=== PATIENT | female | born 1955 | race African-American/Black ===

== ENCOUNTER 2020-06-16 08:48 | Outpatient (CLI) | payer MEDICARE, MEDICAID, SELFPAY ==
[2020-06-16 09:20] LABS: Basophils Percent Auto 0.4 % (0.2-1.2); Eosinophils Absolute Auto 0.2 K/mm3 (0-0.3); Eosinophils Percent Auto 2.7 % (0-4.4); Hematocrit 40.7 % (37.0-47.0); Immature Granulocyte Absolute 0.01 K/mm3 (0.00-0.031); Immature Granulocyte Percent A 0.1 % (0-0.5); Lymphocytes Absolute Auto 2.02 K/mm3 (0.9-3.2); Lymphocytes Percent Auto 23.7 % (18.3-44.2); Mean Corpuscular HGB Conc 34.4 g/dl (32-36); Mean Corpuscular Hemoglobin 31.4 pg (26-34); Mean Corpuscular Volume 91.3 fl (80-100); Mean Platelet Volume 9.5 fl (7.4-10.4); Monocytes Absolute Auto 0.5 K/mm3 (0.1-0.6); Monocytes Percent Auto 6.2 % (2.6-8.5); Neutrophils Absolute Auto 5.7 K/mm3 (1.3-6.7); Neutrophils Percent Auto 66.9 % (45.5-73.1); Platelet Count Result 182 k/mm3 (150-375); Red Blood Count 4.46 M/mm3 (4.2-5.4); Red Cell Distribution Width 12.6 % (11.5-14.5); White Blood Count 8.5 K/mm3 (4.5-10.0)
[2020-06-16 09:32] LABS: Alanine Aminotransferase 20 U/L (4-35); Albumin Level 4.5 g/dL (3.5-5.1); Alkaline Phosphatase 57 U/L (38-126); Anion Gap 5 mmol/L (8-16); Aspartate Amino Transferase 24 U/L (14-36); Bilirubin,Total 0.4 mg/dL (0.2-1.3); Blood Urea Nitrogen 12 mg/dL (7-17); Calcium 9.5 mg/dL (8.4-10.2); Carbon Dioxide 31 mmol/L (22-30); Chloride 106 mmol/L (98-107); Cholesterol 181 mg/dL (0-200); Estimated Glomerular Filt Rate > 60; Glucose 123 mg/dL (65-105); HDL Direct 59 mg/dL; Magnesium 1.8 mg/dL (1.6-2.3); Phosphorus 4.2 mg/dL (2.5-4.5); Sodium 142 mmol/L (137-145); Triglycerides 143 mg/dL (<150); Uric Acid 6.2 mg/dL (2.5-7.5)
[2020-06-16 09:42] LABS: LDL Cholesterol Direct 85 mg/dL
[2020-06-16 10:33] LABS: Hemoglobin A1C 5.8 % (<5.7)
[2020-06-16 10:46] LABS: Vitamin D 25 Hydroxy 46.9 ng/mL
[2020-06-16 13:33] LABS: Iron 91 ug/dL (37-170); Percent Iron Saturation 28 % (20-50)
== END 2020-06-16 08:49 | disposition home or self-care (01) ==
PROVIDERS: PCP Emergency Medicine; Visit Provider Emergency Medicine
DX: D86.0 Sarcoidosis of lung (principal); E55.9 Vitamin D deficiency, unspecified; E78.5 Hyperlipidemia, unspecified; E83.10 Disorder of iron metabolism, unspecified; G47.00 Insomnia, unspecified; K21.9 Gastro-esophageal reflux disease without esophagitis; M10.9 Gout, unspecified; R73.9 Hyperglycemia, unspecified
CPT/HCPCS: 36415; 80061; 80069; 80076; 82306; 82728; 83036; 83540; 83550; 83735; 84550; 85025

== ENCOUNTER 2020-07-04 08:08 | Outpatient (CLI) | payer MEDICARE, MEDICAID, SELFPAY ==
--- NOTE | ~2020-07-04 | MM_ITS ---
EXAMINATION: MM screening [facility] BI w elena HISTORY: Screening mammogram TECHNIQUE: Craniocaudal and mediolateral oblique 3-D tomosynthesis images were obtained and synthetic 2-D images were generated. CAD analysis was submitted and interpreted. COMPARISON: No prior mammogram is available for comparison at this institution. BREAST PARENCHYMAL COMPOSITION: The breasts are heterogeneously dense, which may obscure small masses . FINDINGS: RIGHT BREAST: There is no evidence of suspicious mass, calcification, or architectural distortion to suggest malignancy. LEFT BREAST: An asymmetry is present in the middle third of the inner breast best appreciated 5.5 cm from the nipple on the craniocaudal view. IMPRESSION: 1. Left breast asymmetry. 2. Additional mammographic views and possible breast ultrasound are recommended. BI-RADS Category 0: Incomplete: Needs additional imaging evaluation. Reviewed, dictated and finalized at location A. GAGE LOAN COORDINATOR IMPRESSION: 1. Left breast asymmetry. 2. Additional mammographic views and possible breast ultrasound are recommended . BI-RADS Category 0: Incomplete: Needs additional imaging evaluation.
== END 2020-07-04 08:09 | disposition home or self-care (01) ==
PROVIDERS: PCP Emergency Medicine; Visit Provider Emergency Medicine
DX: Z12.31 Encounter for screening mammogram for malignant neoplasm of breast (principal); R92.8 Other abnormal and inconclusive findings on diagnostic imaging of breast
CPT/HCPCS: 77063; 77067

== ENCOUNTER 2020-08-10 13:55 | Outpatient (CLI) | payer MEDICARE, MEDICAID, SELFPAY ==
--- NOTE | ~2020-08-10 | MM_ITS ---
EXAMINATION: MM diagnostic mammo unilat LT HISTORY: Left breast asymmetry on screening mammogram TECHNIQUE: Additional 3-D tomosynthesis images of the left breast were performed and synthetic 2-D im ages were generated. CAD analysis was submitted and interpreted. High resolution limited left breast ultrasound was performed. COMPARISON: 07/04/2020 BREAST PARENCHYMAL COMPOSITION: The breasts are heterogeneously dense, which may obscure small masses . FINDINGS: MAMMOGRAPHIC FINDINGS: The left breast asymmetry described on recent screening mammogram disperses with spot compression. No suspicious mass, calcification, or architectural distortion are identified. ULTRASOUND: There is no evidence of focal abnormal solid or cystic mass in the vicinity of the mammographic findi ng in question. IMPRESSION: 1. No mammographic or sonographic evidence of malignancy. 2. Recommend routine screening mammography in one year. BI-RADS Category 1: Negative Reviewed, dictated and finalized at location A.
== END 2020-08-10 13:56 | disposition home or self-care (01) ==
LOC: ANHIMG 13:58
PROVIDERS: PCP Emergency Medicine; Visit Provider Emergency Medicine
DX: R92.8 Other abnormal and inconclusive findings on diagnostic imaging of breast (principal)
CPT/HCPCS: 76642; 77065

== ENCOUNTER 2020-11-19 01:25 | Emergency (ER) | payer MEDICARE, MEDICAID, SELFPAY ==
--- NOTE | ~2020-11-19 | XR_ITS ---
XR knee RT 3V DATE: 11/19/2020 02:11 INDICATION: Fall 5 hours ago. Right knee pain. TECHNIQUE: 3 views COMPARISON: None FINDINGS: Mild osteoarthritic spurring at the medial compartment. Minimal periarticular spurring of t he patella. No fracture or dislocation. There may be minimal suprapatellar joint effusion. No periosteal reaction or bone destruction. No radiopaque intra-articular loose body or chondrocalcinosis. IMPRESSION: Mild osteoarthritis Minimal suprapatellar knee joint effusion is suggested; no fracture or dislocation Reviewed, dictated and finalized at location A. IMPRESSION: Mild osteoarthritis Minimal suprapatellar knee joint effusion is suggested; no fracture or dislocat ion
--- NOTE | ~2020-11-19 | XR_ITS ---
XR ankle LT min 3V DATE: 11/19/2020 02:11 INDICATION: Fall. Left ankle injury, pain TECHNIQUE: 4 views COMPARISON: None FINDINGS: There is slight plantar calcaneal enthesopathy. No fracture or dislocation of the ankle or disruption of the ankle mortise. No periosteal reaction or bone destruction. IMPRESSION: No fracture or dislocation of the left ankle Reviewed, dictated and finalized at location A.
[2020-11-19 01:25] VITALS: BP 168/66; PULSE 67; RESP 16; TEMP 36.4; O2SAT 100
--- NOTE | 2020-11-19 02:30 | ED.GENADULT ---
HPI - General Adult General Chief complaint: Extremity Injury, Lower Stated complaint: GLF-RT KNEE PAIN; ALSO LEFT ANKLE INJURY Time Seen by Provider: 11/19/20 01:36 History of Present Illness HPI narrative: Patient 65-year-old female presents emerged part with chief complaint of left ankle and right knee pain. Patient reports that she has had problems with her left ankle for some time after a fall and reports that she lost her footing and her leg gave out and she fell landing on her right knee. Patient states that she iced it elevated reported that initially was swollen but is gone down somewhat. The patient states that her knee still hurts and she was concerned that she may have a fracture to it. Patient also reports that her left ankle has been hurting and she was concerned that there may be a fracture in her ankle. Related Data Home Medications Medication Instructions Recorded Confirmed albuterol sulfate INHALATION 11/19/20 fluoride (sodium) [PreviDent 5000 11/19/20 Booster Plus] fluticasone propionate INTRANASAL 11/19/20 fluticasone propionate [Flovent INHALATION 11/19/20 HFA] quetiapine 11/19/20 zolpidem 11/19/20 Allergies Allergy/AdvReac Type Severity Reaction Status Date / Time No Known Allergies Allergy Verified 11/19/20 01:30 Review of Systems Review of Systems: Narrative: A 10 system review of systems was completed on the patient and is negative except for what is stated in the HPI. Nursing and ancillary documentation was reviewed. [facility] Social History Social History Gender identity (if verbalized by the patient): Female Sexual Orientation (if Verbalized by the Patient): Straight or Heterosexual Exam Narrative: Exam Narrative: GENERAL: Well-appearing, well-nourished, and in no acute distress. HEAD: Normocephalic, atraumatic. EYES: PERRLA and EOMI. ENT: Nares clear, no rhinorrhea or epistaxis. Mucous membranes moist. NECK: Supple. CHEST: Clear to auscultation. No respiratory distress. HEART: Regular rate and rhythm. No murmur heard. Normal peripheral pulses. ABDOMEN: Soft, nontender, nondistended, normal active bowel sounds. EXTREMITIES: Normal range of motion. No edema. Tenderness to palpation in the left ankle and right knee SKIN: Warm, dry, no rash. NEURO: No focal deficits. Alert and oriented x3. PSYCH: Normal mood and affect. Course Course Emergency Course: Ankle x-ray shows no evidence of fracture Knee x-ray shows no evidence of fracture Vital Signs Vital signs: Vital Signs Temperature 36.4 C L 11/19/20 01:25 Pulse Rate 67 11/19/20 01:25 Respiratory Rate 16 11/19/20 01:25 Blood Pressure 168/66 H 11/19/20 01:25 Pulse Oximetry 100 11/19/20 01:25 Temperature 36.4 C L 11/19/20 01:25 Pulse Rate 67 11/19/20 01:25 Respiratory Rate 16 11/19/20 01:25 Blood Pressure 168/66 H 11/19/20 01:25 Pulse Oximetry 100 11/19/20 01:25 Medical Decision Making Vital Signs Vital Signs: Vital Signs Temperature 36.4 C L 11/19/20 01:25 Pulse Rate 67 11/19/20 01:25 Respiratory Rate 16 11/19/20 01:25 Blood Pressure 168/66 H 11/19/20 01:25 Pulse Oximetry 100 11/19/20 01:25 Temperature 36.4 C L 11/19/20 01:25 Pulse Rate 67 11/19/20 01:25 Respiratory Rate 16 11/19/20 01:25 Blood Pressure 168/66 H 11/19/20 01:25 Pulse Oximetry 100 11/19/20 01:25 Discharge Plan Discharge Clinical Impression: Left ankle sprain Qualifiers: Encounter type: initial encounter Involved ligament of ankle: unspecified ligament Qualified Code(s): S93.402A - Sprain of unspecified ligament of left ankle, initial encounter Contusion of right knee Qualifiers: Encounter type: initial encounter Qualified Code(s): S80.01XA - Contusion of right knee, initial encounter Patient Disposition: Home, Self-Care Condition: Stable Instructions: Antibiotic Form, Knee Pain (ED), Contu
[2020-11-19 02:48] VITALS: BP 189/96; PULSE 60; RESP 16; O2SAT 100
[2020-11-19 02:53] VITALS: BP 189/96; PULSE 60; RESP 16; O2SAT 100
== END 2020-11-19 02:55 | disposition home or self-care (01) ==
PROVIDERS: Emergency Provider Emergency Medicine; PCP Emergency Medicine
DX: S93.402A Sprain of unspecified ligament of left ankle, initial encounter (principal); S80.01XA Contusion of right knee, initial encounter; I10 Essential (primary) hypertension; W19.XXXA Unspecified fall, initial encounter
CPT/HCPCS: 73562; 73610; 99284

== ENCOUNTER 2020-11-21 20:26 | Emergency (ER) | payer MEDICARE, MEDICAID, SELFPAY ==
[2020-11-21 20:27] VITALS: BP 131/101; PULSE 94; RESP 18; TEMP 36.3; O2SAT 97
--- NOTE | 2020-11-21 20:47 | ED.GENADULT ---
HPI - General Adult General Chief complaint: Eye Problems Stated complaint: conjunctivitis Time Seen by Provider: 11/21/20 20:33 Source: patient Mode of arrival: ambulatory Limitations: no limitations History of Present Illness HPI narrative: Patient presents for evaluation of left eye concerns. She indicates she went to sleep around 1500 this afternoon. She woke up just prior to coming to the emergency department tonight and had experienced photophobia, tearing, and sensation of a scratch on the eye. She wears glasses but does not use contact lenses. Last eye exam was last year. She denies any diplopia, floaters, black spots. She states that her current vision is blurry in the affected eye. She states she had not slept for almost 30 hours before going to bed at 1500. She was so tired that she pulled the covers over her head to ensure she would fall asleep. Related Data Home Medications Medication Instructions Recorded Confirmed albuterol sulfate INHALATION 11/19/20 fluoride (sodium) [PreviDent 5000 11/19/20 Booster Plus] fluticasone propionate INTRANASAL 11/19/20 fluticasone propionate [Flovent INHALATION 11/19/20 HFA] quetiapine 11/19/20 zolpidem 11/19/20 Allergies Allergy/AdvReac Type Severity Reaction Status Date / Time No Known Allergies Allergy Verified 11/21/20 20:32 Review of Systems Review of Systems: Narrative: CONSTITUTIONAL: Denies fever, chills, or sweats. EYES: Reports sensation of a scratch under her left eye. Reports blurred vision and tearing. Denies diplopia, floaters, black spots ENT: Denies rhinorrhea, congestion, sore throat, or otalgia. CARDIOVASCULAR: Denies chest pain, palpitations, or edema. RESPIRATORY: Denies cough or dyspnea. GASTROINTESTINAL: Denies abdominal pain, nausea, vomiting, or diarrhea. GENITOURINARY: Denies dysuria or hematuria. SKIN: Denies rash or itching. MUSCULOSKELETAL: Denies back pain, joint pain, or myalgia. NEUROLOGIC: Denies headache, numbness, dizziness, or weakness. PSYCHIATRIC: Denies anxiety or depression. [facility] Past Medical History Medical History (Updated 11/21/20 @ 22:12 by German Cano, [facility], ) Hypertension Surgical History Surgical History No pertinent past surgical history Family History Family History Mother No pertinent past medical history Social History Social History (Updated 11/21/20 @ 22:09 by German Cano, [facility], ) Alcohol intake: never Substance use: never Gender identity (if verbalized by the patient): Female Spiritual care concerns: No Exam Narrative: Exam Narrative: GENERAL: Well-appearing, well-nourished, and in no acute distress. HEAD: Normocephalic, atraumatic. EYES: PERRLA and EOMI. there is tearing noted to the left eye. Pressures with Margarito-Pen 10, 12, 17, 17, 18, 20. There are areas of dye uptake overlying the conjunctive of the left eye at approximately 4 and 7:00. Evaluated with slit lamp and no evidence of retained foreign body in the left eye ENT: Nares clear, no rhinorrhea or epistaxis. Mucous membranes moist. Oropharynx without tonsillar hypertrophy exudate or other lesions. Bilateral TMs pearly daniels nonbulging NECK: Supple. No adenopathy or masses. No carotid bruits or JVD CHEST: Clear to auscultation. No respiratory distress. No wheezes rales or rhonchi HEART: Regular rate and rhythm. No murmur heard. Normal peripheral pulses. ABDOMEN: Soft, nontender, nondistended, normal active bowel sounds. EXTREMITIES: Normal range of motion. No edema. SKIN: Warm, dry, no rash. NEURO: No focal deficits. Alert and oriented x3. PSYCH: Normal mood and affect. Course Course Emergency Course: This is a 65-year-old female who presented with complaints of left eye irritation. It appears that she had rubbed her eye when going to sleep this afternoon. On physical e
--- NOTE | 2020-11-21 22:30 | PC.NURSE ---
patient refused visual acuity test stating her eyes burned too bad
== END 2020-11-21 22:32 | disposition home or self-care (01) ==
PROVIDERS: Emergency Provider Nurse Practitioner; PCP Emergency Medicine
DX: S05.02XA Injury of conjunctiva and corneal abrasion without foreign body, left eye, initial encounter (principal); I10 Essential (primary) hypertension; X58.XXXA Exposure to other specified factors, initial encounter
CPT/HCPCS: 99283; A9270

== ENCOUNTER 2021-05-03 10:13 | Emergency (ER) | payer MEDICARE, MEDICAID, SELFPAY ==
[2021-05-03 10:35] VITALS: BP 135/73; PULSE 65; RESP 18; TEMP 35.9; O2SAT 100
--- NOTE | 2021-05-03 14:45 | ED.GENADULT ---
HPI - General Adult General Chief complaint: Eye Problems Stated complaint: right eye pain Time Seen by Provider: 05/03/21 11:21 Source: patient Mode of arrival: ambulatory Limitations: no limitations History of Present Illness HPI narrative: Patient is a 5-year-old female with chief complaint of right eye redness, swelling, irritation, and light yellow drainage that began this morning. Patient denies any injury to her eye. Patient denies wearing any contact lenses or having any ocular trauma. Patient reports having cataract surgery on 03-18-21 but denies any other ocular history. Patient reports that she has been to go to her [employer] office to see if she can be seen after leaving the emergency department but it did not occur for her to go over to the office prior to coming to the emergency department. Patient reports that she does have some light sensitivity but denies any headaches, nausea, vomiting, flashes or floaters or blindness. Related Data Home Medications Medication Instructions Recorded Confirmed fluticasone propionate INTRANASAL 11/19/20 fluticasone propionate [Flovent INHALATION 11/19/20 HFA] quetiapine 11/19/20 zolpidem 11/19/20 hydroxychloroquine 200 mg tablet 200 mg PO DAILY 02/18/21 loperamide 2 mg capsule 2 mg PO Q4H PRN 02/18/21 omeprazole 20 mg capsule,delayed 20 mg PO BID 02/18/21 release Allergies Allergy/AdvReac Type Severity Reaction Status Date / Time No Known Allergies Allergy Verified 05/03/21 11:20 Review of Systems Review of Systems: CONSTITUTIONAL: Denies fever, chills, or sweats. EYES: Reports redness and discharge. ENT: Denies rhinorrhea, congestion, sore throat, or otalgia. CARDIOVASCULAR: Denies chest pain, palpitations, or edema. RESPIRATORY: Denies cough or dyspnea. GASTROINTESTINAL: Denies abdominal pain, nausea, vomiting, or diarrhea. GENITOURINARY: Denies dysuria or hematuria. SKIN: Denies rash or itching. MUSCULOSKELETAL: Denies back pain, joint pain, or myalgia. NEUROLOGIC: Denies headache, numbness, dizziness, or weakness. PSYCHIATRIC: Denies anxiety or depression. [facility] Past Medical History Medical History Hypertension Surgical History Surgical History No pertinent past surgical history Family History Family History Mother No pertinent past medical history Hypertension Cancer Father Alcoholism Asthma Cancer Diabetes mellitus Hypertension Depression Heart disease Cerebrovascular accident Sibling Alcoholism Hypertension Depression Cerebrovascular accident Grandparent Alcoholism Grandparent Alcoholism Heart disease Social History Social History Alcohol intake: never Substance use: never Gender identity (if verbalized by the patient): Female Sexual Orientation (if Verbalized by the Patient): Straight or Heterosexual Spiritual care concerns: No Exam Narrative: GENERAL: Well-appearing, well-nourished, and in no acute distress. HEAD: Normocephalic, atraumatic. EYES: Right subconjunctival erythema with yellow drainage and crusting noted to eyelids. PERRLA and EOMI.No severe vision changes noted. ENT: Nares clear, no rhinorrhea or epistaxis. Mucous membranes moist. Oropharynx without tonsillar hypertrophy exudate or other lesions. Bilateral TMs pearly daniels nonbulging NECK: Supple. No adenopathy or masses. No carotid bruits or JVD CHEST: Clear to auscultation. No respiratory distress. No wheezes rales or rhonchi HEART: Regular rate and rhythm. No murmur heard. Normal peripheral pulses. EXTREMITIES: Normal range of motion. No edema. SKIN: Warm, dry, no rash. NEURO: No focal deficits. Alert and oriented x3. PSYCH: Normal mood and affect. Course Vital Signs Vital signs: Vit
== END 2021-05-03 12:25 | disposition home or self-care (01) ==
PROVIDERS: Emergency Provider Emergency Medicine; PCP Emergency Medicine
DX: H10.31 Unspecified acute conjunctivitis, right eye (principal); I10 Essential (primary) hypertension
CPT/HCPCS: 99283

== ENCOUNTER 2021-06-17 18:30 | Emergency (ER) | payer OTHER, MEDICARE, MEDICAID, SELFPAY ==
--- NOTE | ~2021-06-17 | XR_ITS ---
EXAMINATION: XR hand RT min 3V EXAM DATE: 06/17/2021 19:21 INDICATION: Fall, Pain Throughout Thumbs Hx Arthritis TECHNIQUE: Right hand frontal, lateral and oblique projections obtained and reviewed. Comparison is m willem to prior examination from 08/13/2015. FINDINGS: Right metacarpal bones are unremarkable. There are no acute fractures or dislocations iden tified. There is no subcutaneous gas. The soft tissue is unremarkable. There are no radiopaque fo reign bodies. Again there is no right 3rd middle phalangeal cortical based expansile lesion, bone re modeling, no cortical disruption consistent with benign histology. There is mild to moderate polyarti cular interphalangeal osteoarthritis. IMPRESSION: 1. No acute right hand fracture. 2. Benign 3rd middle phalangeal lesion. 3. Mild to moderate polyarticular osteoarthritis. Reviewed, dictated and finalized at location G. TY PROBATION OFFICER
--- NOTE | ~2021-06-17 | XR_ITS ---
EXAMINATION: XR lumbar spine min 4V EXAM DATE: 06/17/2021 19:20 INDICATION: Fall This Morning, Tailbone Pain/Pain To Left Side Lowerback. TECHNIQUE: Lumber spine frontal, lateral, bilateral oblique projections. Coned down frontal and lat eral L5-S1 lumbar projections for interpretation. There is no prior study for comparison. FINDINGS: Moderate diffuse lumbar facet arthropathy. Moderate disc disease L3-S1. Vertebral body heig hts are maintained. There are no acute fractures identified. The vertebral bodies are aligned in the AP dimension. Paraspinal soft tissue is unremarkable. Sacrum, sacroiliac joints, sacral arcuate lines are intact. Rectosigmoid region anastomosis material. Gas-filled loop of bowel probably air within patulous distended sigmoid. IMPRESSION: 1. No acute lumbosacral findings. 2. Moderate spondylosis. 3. Gas-filled loop of bowel probably air within patulous sigmoid. Reviewed, dictated and finalized at location . RAPHIC INFORMATION SYSTEMS ENGINEER
--- NOTE | ~2021-06-17 | XR_ITS ---
EXAMINATION: XR hand LT min 3V EXAM DATE: 06/17/2021 19:20 INDICATION: Fall, left hand, thumb pain. Initial encounter. TECHNIQUE: Left hand frontal, lateral and oblique projections obtained and reviewed. There is no charmaine or study for comparison. FINDINGS: Left metacarpal bones are unremarkable. There is moderate 2nd, 5th DIP interphalangeal charmaine dodie osteoarthritis. Less osteoarthritis other interphalangeal joints. There are no acute fractures i dentified. No radiopaque foreign bodies identified. IMPRESSION: No acute left hand fracture. Reviewed, dictated and finalized at location G. TIME OPERATOR
--- NOTE | ~2021-06-17 | XR_ITS ---
EXAMINATION: XR knee RT 3V EXAM DATE: 06/17/2021 19:19 INDICATION: Fall This Morning, Generalized Knee Pain . Initial encounter. TECHNIQUE: Three projections of the right knee. Comparison is made to prior examination from . FINDINGS: No evidence osteochondral defect or joint body in the right knee joint. There are no acut e fractures or dislocations identified. There is no subcutaneous gas. The soft tissue is unremarkab le. There are no radiopaque foreign bodies. Mild patellofemoral osteoarthritis. No joint effusion. IMPRESSION: 1. XR knee RT 3V exam without acute osseous findings. Reviewed, dictated and finalized at location G. CLEANING MANAGER
[2021-06-17 18:31] VITALS: BP 183/88; PULSE 100; RESP 14; TEMP 36.3; O2SAT 99
--- NOTE | 2021-06-17 19:33 | ED.GENADULT ---
HPI - General Adult General Chief complaint: Fall Stated complaint: Fall Time Seen by Provider: 06/17/21 18:34 Source: patient Mode of arrival: ambulatory Limitations: no limitations History of Present Illness HPI narrative: Patient is a 65yo female with CC of B/L thumb pain, right knee pain and low back pain after slipping and falling on her buttocks and thigh at [facility] at 11am today. She denies hitting her head or LOC. She reports she got up and walked it off around [facility]. She reports as the day progresses she has become more sore so her daughter wanted to her to come to be checked out. She denies any radicular pain, saddle paraesthesia, or loss of bowel or bladder function. She reports being able to ambulate without difficulty. Related Data Home Medications Medication Instructions Recorded Confirmed fluticasone propionate INTRANASAL 11/19/20 fluticasone propionate [Flovent INHALATION 11/19/20 HFA] quetiapine 11/19/20 zolpidem 11/19/20 hydroxychloroquine 200 mg tablet 200 mg PO DAILY 02/18/21 loperamide 2 mg capsule 2 mg PO Q4H PRN 02/18/21 omeprazole 20 mg capsule,delayed 20 mg PO BID 02/18/21 release Allergies Allergy/AdvReac Type Severity Reaction Status Date / Time No Known Allergies Allergy Verified 05/03/21 11:20 Review of Systems Review of Systems: CONSTITUTIONAL: Denies fever, chills, or sweats. EYES: Denies visual changes, redness, or discharge. ENT: Denies rhinorrhea, congestion, sore throat, or otalgia. CARDIOVASCULAR: Denies chest pain, palpitations, or edema. RESPIRATORY: Denies cough or dyspnea. GASTROINTESTINAL: Denies abdominal pain, nausea, vomiting, or diarrhea. GENITOURINARY: Denies dysuria or hematuria. SKIN: Denies rash or itching. MUSCULOSKELETAL: Reports thumb pain, knee pain, back pain NEUROLOGIC: Denies headache, numbness, dizziness, or weakness. PSYCHIATRIC: Denies anxiety or depression. [facility] Past Medical History Medical History Hypertension Surgical History Surgical History No pertinent past surgical history Family History Family History Mother No pertinent past medical history Hypertension Cancer Father Alcoholism Asthma Cancer Diabetes mellitus Hypertension Depression Heart disease Cerebrovascular accident Sibling Alcoholism Hypertension Depression Cerebrovascular accident Grandparent Alcoholism Grandparent Alcoholism Heart disease Social History Social History Alcohol intake: never Substance use: never Gender identity (if verbalized by the patient): Female Sexual Orientation (if Verbalized by the Patient): Straight or Heterosexual Spiritual care concerns: No Exam Narrative: GENERAL: Well-appearing, well-nourished, and in no acute distress. HEAD: Normocephalic, atraumatic. No signs of trauma. Non tender to palpation. EYES: PERRLA and EOMI. CHEST: Clear to auscultation. No respiratory distress. No wheezes rales or rhonchi HEART: Regular rate and rhythm. BACK: No vertebral point tenderness, tenderness to b/l sides of low back. Flexion and extension intact. ABDOMEN: Soft, nontender, nondistended, normal active bowel sounds. EXTREMITIES: Tenderness to thumb bases B/L w/o deformity. Normal range of motion. No edema.No tenderness to thigh. Tenderness to anterior aspect of right knee without edema and erythema. Full flexion, extension and weight bearing. No tenderness distally or proximally to leg. SKIN: Warm, dry, no rash. NEURO: No focal deficits. Alert and oriented x3.Gait steady PSYCH: Normal mood and affect. Course Vital Signs Vital signs: Vital Signs Temperature 97.3 F L 06/17/21 18:31 Pulse Rate 100 06/17/21 18:31 Respiratory Rate 14 06/17/21 18:31 Blood Pressure 183
[2021-06-17 20:16] VITALS: BP 164/86; PULSE 89; RESP 16; TEMP 36.6; O2SAT 100
== END 2021-06-17 20:18 | disposition home or self-care (01) ==
PROVIDERS: Emergency Provider Emergency Medicine; PCP Emergency Medicine
DX: S33.5XXA Sprain of ligaments of lumbar spine, initial encounter (principal); S63.602A Unspecified sprain of left thumb, initial encounter; S63.601A Unspecified sprain of right thumb, initial encounter; I10 Essential (primary) hypertension; W01.0XXA Fall on same level from slipping, tripping and stumbling without subsequent striking against object, initial encounter
CPT/HCPCS: 72110; 73130; 73562; 99284

== ENCOUNTER 2021-07-27 14:23 | Outpatient (CLI) | payer MEDICARE, MEDICAID, SELFPAY ==
--- NOTE | ~2021-07-27 | MM_ITS ---
EXAMINATION: MM screening [facility] BI w elena HISTORY: Screening mammogram TECHNIQUE: Craniocaudal and mediolateral oblique 3-D tomosynthesis images were obtained and synthetic 2-D images were generated. CAD analysis was submitted and interpreted. COMPARISON: 08/10/2020, 07/04/2020 BREAST PARENCHYMAL COMPOSITION: The breasts are heterogeneously dense, which may obscure small masses . FINDINGS: Scattered benign-appearing calcifications are present. There is no suspicious mass, calcifi cation, or architectural distortion to suggest malignancy in either breast. There has been no suspici ous interval change. IMPRESSION: 1. No mammographic evidence of malignancy. 2. Recommend routine screening mammography in one year. BI-RADS Category 2: Benign finding(s). Reviewed, dictated and finalized at location A.
== END 2021-07-27 14:24 | disposition home or self-care (01) ==
PROVIDERS: PCP Emergency Medicine; Visit Provider Emergency Medicine
DX: Z12.31 Encounter for screening mammogram for malignant neoplasm of breast (principal)
CPT/HCPCS: 77063; 77067

== ENCOUNTER 2022-09-29 08:52 | Outpatient (CLI) | payer MEDICARE, MEDICAID, SELFPAY ==
--- NOTE | ~2022-09-29 | DEXA_ITS ---
Bone Density Report Name: HERNAN VALLE Age: 66 Sex: Female Ethnicity: White Date of : 1955 Indication: postmenopausal; screening for osteoporosis; height loss; asthma or emphysema; hysterectomy; rheumatoid arthritis; Referring Provider: BECKY WOLF Study: Bone densitometry was performed. Exam Date: September 29, 2022 Accession number: [id number] Bone Density: Region BMD T-score Z-score Classification AP Spine(L1-L4) 1.531 4.4 6.3 Normal Femoral Neck (Left) 0.965 1.0 2.7 Normal Total Hip (Left) 0.995 0.4 1.8 Normal Femoral Neck (Right) 1.022 1.6 3.2 Normal Total Hip (Right) 1.023 0.7 2.0 Normal Total Hip Mean 1.009 0.6 1.9 Normal World Health Organization criteria for BMD impression classify patients as: Normal (T-score at or above -1.0), Osteopenia (T-score between -1.0 and -2.5), or Osteoporosis (T-score at or below -2.5). 10-year Fracture Risk: FRAX not reported because: All T-scores for Spine Total, Hip Total, Femoral Neck at or above -1.0 Clinical Information Provided by Patient: Has rheumatoid arthritis Has used the following medications: Vitamin D Has the following medical conditions: Asthma or Emphysema, Hysterectomy Patient maximum height was 65.5 No regular weight bearing exercise Onset of menses at age 15 Number of children 4 Impression: The patient has normal bone mass. Discussion: BONE DENSITY IS ABOVE THE MINIMUM DESIRABLE LEVEL AT ALL SKELETAL SITES TESTED. This patient?s bone mineral density is above the minimum desirable level (T-score -1.0 or better) at all sites measured. The patient should follow a healthful lifestyle (good nutrition with adequate calcium and vitamin D, and appropriate weight-bearing exercise). Follow-Up: Consider repeating this study in 5 years or sooner if there is some new clinical indication. Reported by: [facility] on 09/29/2022 9:29:00 AM. Reviewed, dictated and finalized at location AGeorgina HAQUE
--- NOTE | ~2022-09-29 | MM_ITS ---
EXAMINATION: MM screening tony BI w elena HISTORY: Screening mammogram TECHNIQUE: Craniocaudal and mediolateral oblique 3-D tomosynthesis images were obtained and synthetic 2-D images were generated. CAD analysis was submitted and interpreted. COMPARISON: 07/27/2021, 08/10/2020, 07/04/2020 BREAST PARENCHYMAL COMPOSITION: The breasts are heterogeneously dense, which may obscure small masses . FINDINGS: Scattered benign-appearing calcifications are present. No suspicious mass, calcification, o r architectural distortion are identified in either breast to suggest malignancy. There has been no s uspicious interval change. IMPRESSION: 1. No mammographic evidence of malignancy. 2. Recommend routine screening mammography in one year. BI-RADS Category 2: Benign finding(s). Reviewed, dictated and finalized at location A.
== END 2022-09-29 08:53 | disposition home or self-care (01) ==
PROVIDERS: PCP Emergency Medicine; Visit Provider Emergency Medicine
DX: Z12.31 Encounter for screening mammogram for malignant neoplasm of breast (principal); Z78.0 Asymptomatic menopausal state
CPT/HCPCS: 77063; 77067; 77080

== ENCOUNTER 2023-04-23 17:23 | Emergency (ER) | payer MEDICARE, MEDICAID, SELFPAY ==
[2023-04-23 17:26] VITALS: BP 152/71; PULSE 65; RESP 18; TEMP 36.5; O2SAT 100
--- NOTE | 2023-04-23 17:51 | ED.SKABFB ---
HPI - Skin/Abscess/Foreign Bdy General Chief complaint: Skin/Abscess/Foreign Body Stated complaint: rash Time Seen by Provider: 04/23/23 17:51 Source: patient Mode of arrival: ambulatory Limitations: no limitations History of Present Illness HPI narrative: Eve is a 67-year-old female patient presenting to the ER today with complaints of a rash on her back and arms. She reports that the rash just started this afternoon and is gradually gotten worse. States that the rash is itchy and has started with bumps in the bumps got bigger. No change in soaps, detergents, lotions, foods, medications, or environmental change. She denies any fever or chills. She denies any URI symptoms. Related Data Home Medications Medication Instructions Recorded Confirmed fluticasone propionate 220 inhalation 11/19/20 03/08/23 mcg/actuation HFA aerosol inhaler (Flovent HFA) fluticasone propionate 50 intranasal 11/19/20 03/08/23 mcg/actuation nasal spray,suspension quetiapine 100 mg tablet 11/19/20 03/08/23 hydroxychloroquine 200 mg tablet 200 mg PO DAILY 02/18/21 03/08/23 loperamide 2 mg capsule 2 mg PO Q4H PRN 02/18/21 03/08/23 alprazolam 1 mg tablet 1 mg PO DAILY 03/08/23 03/08/23 propranolol 40 mg tablet 40 mg PO Q12H 03/08/23 03/08/23 sertraline 50 mg tablet 50 mg PO DAILY 03/08/23 03/08/23 Allergies Allergy/AdvReac Type Severity Reaction Status Date / Time zinc Allergy Unknown Nausea and Verified 04/23/23 17:27 Vomiting, Dizziness Review of Systems Review of Systems: Pertinent positives per HPI. Patient denies any fever, chills, headache, visual changes, dizziness, cough, runny nose, sore throat, shortness of breath, chest pain, palpitations, nausea, vomiting, diarrhea, constipation, abdominal pain, or any urinary issues. [facility] Past Medical History Medical History (Updated 04/23/23 @ 17:56 by Bandar Barber APRN) COPD (chronic obstructive pulmonary disease) Hypertension Surgical History Surgical History History of carpal tunnel release of both wrists History of cataract extraction History of colon surgery History of eye surgery History of foot surgery History of partial hysterectomy History of partial knee replacement left History of tonsillectomy No pertinent past surgical history Family History Family History Mother Hypertension Cancer CHF (congestive heart failure) Father Alcoholism Asthma Cancer Diabetes mellitus Hypertension Depression Heart disease Cerebrovascular accident Sibling Alcoholism Hypertension Depression Cerebrovascular accident Grandparent Alcoholism Grandparent Alcoholism Heart disease Social History Social History Smoking status: Never smoker Alcohol intake: never Substance use: never Lack of Transportation: No Lack of Food: Never True Current Housing: I Have Housing Concerned About Future Housing: No Difficulty Paying Gas/Electric Bills: No Difficulty Paying for Meds: No Currently Unemployed: No Education: Trade/Vocational Certificate Difficulty w/ Childcare or Family Care: No Living arrangements: alone Occupation/Education: retired Gender identity (if verbalized by the patient): Female Sexual Orientation (if Verbalized by the Patient): Straight or Heterosexual Spiritual care concerns: No Comments At the time of my signature, I reviewed and agree with the nursing past medical, surgical, social, and family history. There is no relevant family history pertinent to the patient complaint. Exam Narrative: General: Well-developed, well nourished, in no apparent distress Head: Normocephalic, atraumatic. Cardio: Regular rate and rhythm, s1 and s2 normal, no murmur appreciated. Resp: Clear to auscultation bilaterally, no
== END 2023-04-23 18:48 | disposition home or self-care (01) ==
LOC: ANHED 18:38
PROVIDERS: Emergency Provider Nurse Practitioner Family; PCP Emergency Medicine
DX: L50.9 Urticaria, unspecified (principal); J44.9 Chronic obstructive pulmonary disease, unspecified; I10 Essential (primary) hypertension; Z98.49 Cataract extraction status, unspecified eye; Z90.711 Acquired absence of uterus with remaining cervical stump; Z96.652 Presence of left artificial knee joint
CPT/HCPCS: 96372; 99283; J1100

== ENCOUNTER 2023-05-10 14:17 | Outpatient (CLI) | payer MEDICARE, MEDICAID, SELFPAY ==
--- NOTE | ~2023-05-10 | CT_ITS ---
EXAMINATION: CT sinus wo con DATE: 05/10/2023 14:56 INDICATION: Sinusitis. TECHNIQUE: Computed tomography (CT) of the paranasal sinuses was performed without intravenous contra st. The dose-length product was 349.64 mGy-cm. Automated exposure control and iterative reconstruction technique were employed. COMPARISON: CT dated 08/08/2013 FINDINGS: There is mucosal thickening of the right maxillary sinus. No mucoperiosteal reaction. Leftw cayden nasal septal deviation. There is partial occlusion of the right ostiomeatal unit. The left ostiom eatal unit is patent. There is mild mucosal thickening of the left maxillary antrum. Mastoids are pne umatized. IMPRESSION: 1. Mild maxillary sinus disease. Reviewed, dictated and finalized at location B. 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
== END 2023-05-10 14:18 | disposition home or self-care (01) ==
PROVIDERS: PCP Emergency Medicine; Visit Provider Otolaryngology
DX: J32.4 Chronic pansinusitis (principal)
CPT/HCPCS: 70486

== ENCOUNTER 2023-07-13 11:38 | Emergency (ER) | payer MEDICARE, MEDICAID, SELFPAY ==
[2023-07-13 11:44] VITALS: BP 131/72; PULSE 65; RESP 16; TEMP 36.8; O2SAT 100
--- NOTE | 2023-07-13 12:47 | ED.FEMALEGU ---
HPI - Female Genitourinary General Chief complaint: CANDLE WICKER Stated complaint: RIGHT LABIAL ABCESS Time Seen by Provider: 07/13/23 12:32 Source: patient Mode of arrival: ambulatory Limitations: no limitations History of Present Illness HPI Narrative: Patient presents with a vulvar lesion of 6 weeks duration. Denies pruritus. Has been using Dial antibacterial soap and applying Neosporin regularly and hydrogen peroxide after every void. No fevers, dysuria. At baseline has some occasional urinary incontinence when she coughs. She thought there was some yellow drainage at one point. This has never happened before. She does not describe a burning sensation. Not pruritic. She went to a [facility] urgent care and had an STI panel performed, negative but was on oral antibiotics. Sexually active with 1 male partner but not since she noticed this. She is chronically on steroids and receives disease modifying infusions q8 weeks for ulcerative colitis/sarcoid. Her OBGyn retired and she can't establish with another one (Dr Shannen Johnson at [facility]) until 10/23/23. Related Data Home Medications Medication Instructions Recorded Confirmed fluticasone propionate 220 inhalation 11/19/20 03/08/23 mcg/actuation HFA aerosol inhaler (Flovent HFA) fluticasone propionate 50 intranasal 11/19/20 03/08/23 mcg/actuation nasal spray,suspension quetiapine 100 mg tablet 11/19/20 03/08/23 hydroxychloroquine 200 mg tablet 200 mg PO DAILY 02/18/21 03/08/23 loperamide 2 mg capsule 2 mg PO Q4H PRN 02/18/21 03/08/23 alprazolam 1 mg tablet 1 mg PO DAILY 03/08/23 03/08/23 propranolol 40 mg tablet 40 mg PO Q12H 03/08/23 03/08/23 sertraline 50 mg tablet 50 mg PO DAILY 03/08/23 03/08/23 Allergies Allergy/AdvReac Type Severity Reaction Status Date / Time zinc Allergy Unknown Nausea and Verified 07/13/23 11:39 Vomiting, Dizziness PMFSH Past Medical History Medical History (Updated 07/14/23 @ 01:30 by Danette Guerin MD) COPD (chronic obstructive pulmonary disease) Hypertension Sarcoid Ulcerative colitis Surgical History Surgical History History of carpal tunnel release of both wrists History of cataract extraction History of colon surgery History of eye surgery History of foot surgery History of partial hysterectomy History of partial knee replacement left History of tonsillectomy No pertinent past surgical history Family History Family History Mother Hypertension Cancer CHF (congestive heart failure) Father Alcoholism Asthma Cancer Diabetes mellitus Hypertension Depression Heart disease Cerebrovascular accident Sibling Alcoholism Hypertension Depression Cerebrovascular accident Grandparent Alcoholism Grandparent Alcoholism Heart disease Social History Social History (Updated 07/14/23 @ 01:46 by Danette Guerin MD) Smoking status: Never smoker Alcohol intake: never Substance use: never Lack of Transportation: No Lack of Food: Never True Current Housing: I Have Housing Concerned About Future Housing: No Difficulty Paying Gas/Electric Bills: No Difficulty Paying for Meds: No Currently Unemployed: No Education: Trade/Vocational Certificate Difficulty w/ Childcare or Family Care: No Living arrangements: alone Occupation/Education: retired Gender identity (if verbalized by the patient): Female Additional gender identity comments: sexually active with 1 male partner Sexual Orientation (if Verbalized by the Patient): Straight or Heterosexual Spiritual care concerns: No Exam Narrative: GENERAL: Well-appearing, well-nourished, and in no acute distress. HEAD: Normocephalic, atraumatic. EYES: Non injected, non icteric ENT: Nares clear, no rhinorrhea or epistaxis. NECK: Supple. CHEST: Speaking in complete sentences. No respiratory distress. H
[2023-07-13 13:57] VITALS: BP 127/76; PULSE 67; RESP 18; O2SAT 100
== END 2023-07-13 13:58 | disposition home or self-care (01) ==
PROVIDERS: Emergency Provider Student in an Organized Health Care Education/Training Program; PCP Emergency Medicine
DX: J44.9 Chronic obstructive pulmonary disease, unspecified (principal); I10 Essential (primary) hypertension; D86.9 Sarcoidosis, unspecified; K51.90 Ulcerative colitis, unspecified, without complications; Z98.49 Cataract extraction status, unspecified eye; Z90.710 Acquired absence of both cervix and uterus; Z90.711 Acquired absence of uterus with remaining cervical stump
CPT/HCPCS: 99283

== ENCOUNTER 2023-10-13 13:24 | Outpatient (CLI) | payer MEDICARE, MEDICAID, SELFPAY ==
--- NOTE | ~2023-10-13 | US_ITS ---
EXAMINATION: US soft tissue UE LT DATE: 10/13/2023 13:47 INDICATION: localized swelling, mass and lump . TECHNIQUE: Grayscale and Doppler ultrasound images of the left upper extremity were obtained. COMPARISON: None. FINDINGS: The area of clinical concern in the left biceps area was sonographically interrogated revea ling no solid or cystic mass. IMPRESSION: No sonographic abnormality detected in the area of clinical concern. Reviewed, dictated and finalized at location K.
== END 2023-10-13 13:25 ==
PROVIDERS: PCP Emergency Medicine; Visit Provider Emergency Medicine
DX: R22.32 Localized swelling, mass and lump, left upper limb (principal)
CPT/HCPCS: 76882

== ENCOUNTER 2024-04-25 14:37 | Emergency (ER) | payer MEDICARE, MEDICAID, SELFPAY ==
--- NOTE | ~2024-04-25 | XR_ITS ---
EXAMINATION: XR shoulder RT min 2V DATE: 04/25/2024 17:12 INDICATION: Right shoulder pain. Fall. TECHNIQUE: 4 views of right shoulder were obtained. COMPARISON: None. FINDINGS: Alignment is normal. No fracture. There is severe osteoarthritis of acromioclavicular joint and mild osteoarthritis of glenohumeral joint. IMPRESSION: 1. Polyarticular osteoarthritis. Reviewed, dictated and finalized at location A. 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
--- NOTE | ~2024-04-25 | XR_ITS ---
EXAMINATION: XR chest 1V DATE: 04/25/2024 17:12 INDICATION: Right clavicle pain. Fall. TECHNIQUE: A single frontal view of the chest was obtained. COMPARISON: Chest 2 views 10/01/2013 FINDINGS: A calcified right lung nodule and calcified hilar and mediastinal lymph nodes are consisten t with old granulomatous disease. No pleural effusion or pneumothorax. The heart size is normal. IMPRESSION: 1. No acute cardiopulmonary disease. Reviewed, dictated and finalized at location A. 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
--- NOTE | ~2024-04-25 | XR_ITS ---
EXAMINATION: XR humerus LT DATE: 04/25/2024 17:12 INDICATION: Left upper arm pain. Fall. TECHNIQUE: 2 views of left humerus were obtained. COMPARISON: None. FINDINGS: Alignment is normal. No fracture. There is mild osteoarthritis of glenohumeral joint and se titus osteoarthritis of acromioclavicular joint. IMPRESSION: 1. Polyarticular osteoarthritis. Reviewed, dictated and finalized at location A. 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
--- NOTE | ~2024-04-25 | CT_ITS ---
EXAMINATION: CT cervical spine wo con DATE: 04/25/2024 17:14 INDICATION: Neck pain. Fall. TECHNIQUE: Computed tomography (CT) of the cervical spine was performed without intravenous contrast. Automated exposure control and iterative reconstruction technique were employed. The dose-length pro duct was 355.86 mGy-cm. COMPARISON: None FINDINGS: There is kyphosis of cervical spine. There is 3 degrees dextrocurvature of cervical spine. Vertebral body heights are normal. There is mildly decreased disc height at C5-C6 and moderately decr eased disc height at C6-C7. The following disc levels are specifically discussed: C2-C3: There is mild bilateral uncovertebral joint osteoarthritis. There is severe right and mild lef t facet joint osteoarthritis. There is mild right neural foraminal stenosis. There is no central david l stenosis. C3-C4: There is mild bilateral uncovertebral joint osteoarthritis. There is severe right and mild lef t facet joint osteoarthritis. There is no neural foraminal stenosis. There is mild central canal sten osis. C4-C5: There is mild bilateral uncovertebral joint osteoarthritis. There is moderate right and severe left facet joint osteoarthritis. There is mild left neural foraminal stenosis. There is mild central canal stenosis. C5-C6: There is mild right and severe left uncovertebral joint osteoarthritis. There is mild bilatera l facet joint osteoarthritis. There is mild left neural foraminal stenosis. There is mild central can al stenosis. C6-C7: There is mild bilateral uncovertebral joint osteoarthritis. There is mild right and severe lef t facet joint osteoarthritis. There is mild left neural foraminal stenosis. There is mild central can al stenosis. C7-T1: There is no uncovertebral joint osteoarthritis. There is severe bilateral facet joint osteoart hritis. There is mild bilateral neural foraminal stenosis. There is no central canal stenosis. IMPRESSION: 1. No fracture 2. Moderate cervical spondylosis. Reviewed, dictated and finalized at location A. P DROP ENGINEER
[2024-04-25 14:40] VITALS: BP 145/78; PULSE 65; RESP 18; TEMP 36.4; O2SAT 100
--- NOTE | 2024-04-25 16:22 | ED.FALL ---
HPI - Fall General Chief Complaint: Fall Stated Complaint: fall Time Seen by Provider: 04/25/24 15:45 Source: patient Mode of arrival: ambulatory Limitations: no limitations History of Present Illness HPI Narrative: Patient presents after sustaining a fall 2 days before Thanks. She was trying to get a book out of the closet and she grabbed it but when she turned around she fell. She states she doesn't know if she lost consciousness but then she states that she doesn't know how/why she fell but she does recall the seconds before she actually hit the ground and then woke up on the ground. Initially her knees hurt but not now. She is experiencing pain to her neck (particularly the right side)/upper back and her bilateral arms but particularly her right clavicle, right shoulder, and the proximal 1/3 of her left humerus. She has pain and stiffness when she turns her head. No paresthesias. She has been using an over the counter back brace to help with her posture. Also using Tylenol (three 500mg tablets TID) and a heating pad and hot showers but it doesn't seem to be helping. She tries to avoid NSAIDs because of her ulcerative colitis. Related Data Home Medications ?Medication ?Instructions ?Recorded ?Confirmed ?Last Taken ?Type fluticasone propionate 220 inhalation 11/19/20 03/08/23 Unknown History mcg/actuation HFA aerosol inhaler (Flovent HFA) fluticasone propionate 50 intranasal 11/19/20 03/08/23 Unknown History mcg/actuation nasal spray,suspension quetiapine 100 mg tablet 11/19/20 03/08/23 Unknown History hydroxychloroquine 200 mg tablet 200 mg PO DAILY 02/18/21 03/08/23 Unknown History loperamide 2 mg capsule 2 mg PO Q4H PRN 02/18/21 03/08/23 Unknown History alprazolam 1 mg tablet 1 mg PO DAILY 03/08/23 03/08/23 Unknown History propranolol 40 mg tablet 40 mg PO Q12H 03/08/23 03/08/23 Unknown History sertraline 50 mg tablet 50 mg PO DAILY 03/08/23 03/08/23 Unknown History Allergies Allergy/AdvReac Type Severity Reaction Status Date / Time zinc Allergy Unknown Nausea and Verified 07/13/23 11:39 Vomiting, Dizziness PMFSH Past Medical History Medical History Sarcoid Ulcerative colitis COPD (chronic obstructive pulmonary disease) Hypertension Surgical History Surgical History History of tonsillectomy History of colon surgery History of partial hysterectomy History of foot surgery History of carpal tunnel release of both wrists History of partial knee replacement left History of eye surgery History of cataract extraction No pertinent past surgical history Family History Family History Mother Hypertension Cancer CHF (congestive heart failure) Father Alcoholism Asthma Cancer Diabetes mellitus Hypertension Depression Heart disease Cerebrovascular accident Sibling Alcoholism Hypertension Depression Cerebrovascular accident Grandparent Alcoholism Grandparent Alcoholism Heart disease Social History Social History (Updated 07/14/23 @ 01:46 by Danette Guerin MD) Smoking status: Never smoker Alcohol intake: never Substance use: never Lack of Transportation: No Lack of Food: Never True Current Housing: I Have Housing Concerned About Future Housing: No Difficulty Paying Gas/Electric Bills: No Difficulty Paying for Meds: No Currently Unemployed: No Education: Trade/Vocational Certificate Difficulty w/ Childcare or Family Care: No Living arrangements: alone Occupation/Education: retired Gender identity (if verbalized by the patient): Female Additional gender identity comments: sexually active with 1 male partner Sexual Orientation (if Verbalized by the Patient): Straight or Heterosexual Spiritual care concerns: No Exam Narrative: GENERAL: Well-appearing, well-nourished, and in no acute distress. HEAD: Normocephalic, atraumatic. EYES: Non injected, non icteric ENT: Nares clear, no rhinorrhea or epistaxis. NECK: Supple. Demonstrates flexion/extension and rotational movement. Engages muscles appropriately w/o gertrude asymmetry. Mild tenderness to palpation of trapezius muscle on the R. Back: No midline TTP of C spine which is w/o bony step offs or deformiity. No scapular winging CHEST: Speaking in full sentences. No respiratory distress. Right and left clavicles w/o obvious deformity and non TTP. HEART: Regular rate and rhythm. . ABDOMEN: Soft, nondistended. EXTREMITIES: Normal range of motion. No upper extremity edema. No TTP of right or left shoulder girdle. SKIN: Warm, dry, no rash. Well perfused. NEURO: No focal deficits. Alert and oriented x3. Sensation intact to gross touch throughout. 5/5 strength with elbow flexion/extension bilaterally PSYCH: Normal mood and affect. Course Vital Signs Vital signs: Vital Signs Temperature 97.5 F L 04/25/24 14:40 Pulse Rate 65 04/25/24 14:40 Respiratory Rate 18 04/25/24 14:40 Blood Pressure 145/78 H 04/25/24 14:40 Pulse Oximetry 100 04/25/24 14:40 Oxygen Delivery Room Air 04/25/24 14:40 Temperature 98.2 F 04/25/24 17:58 Pulse Rate 66 04/25/24 17:58 Respiratory Rate 18 04/25/24 17:58 Blood Pressure 129/86 04/25/24 17:58 Pulse Oximetry 100 04/25/24 17:58 Oxygen Delivery Room Air 04/25/24 14:40 MDM - Fall MDM Narrative Medical decision making narrative: Patient presents with residua pain after sustaining a fall 2 days before . In the emergency department she is afebrile with acceptable vital signs although mildly elevated systolic blood pressure. Complaining of R clavicle, R shoulder, and L humerus pain as well as neck pain. Reassuring physical exam. Neurovascularly intact. Imaging negative. GIven analgesic medication in the ED and discharged with prescriptions for multimodal pain regimen. Stable for DC. Advised to f/u with PCP> Differential Diagnosis Differential diagnosis: Likely dislocation of shoulder region and other (fracture; bony contusion; soft tissue contusion) Imaging Data Attestation: I personally reviewed and interpreted this imaging study as follows: My impression: No evidence of fracture on my independent interpretation of left humerus. No evidence of fracture on my independent interpretation of right clavicle on chest x-ray No evidence of fracture dislocation on right shoulder x-ray on my independent interpretation Radiologist's impression: Impressions Chest X-Ray 04/25/24 17:13 IMPRESSION: 1. No acute cardiopulmonary disease. Humerus X-Ray 04/25/24 17:16 IMPRESSION: 1. Polyarticular osteoarthritis. Cervical Spine CT 04/25/24 17:17 IMPRESSION: 1. No fracture 2. Moderate cervical spondylosis. Shoulder X-Ray 04/25/24 17:17 IMPRESSION: 1. Polyarticular osteoarthritis. Discharge Plan Discharge Clinical Impression: Fall, Polyarticular osteoarthritis, Cervical spondylosis Patient Disposition: Home, Self-Care Condition: Stable Instructions: Antibiotic Form, Cervical Strain (ED), Osteoarthritis (ED), Fall Prevention for Older Adults (ED) Additional Instructions: No evidence of fracture (broken Bones) or dislocation on all the imaging that was obtained. This likely represents musculoskeletal injury with falls which can make you continue to be sore and achy. Recommend a multimodal pain strategy to target both pain, inflammation, and muscle relaxation. This is to help you balance both rest but also maintaining movement and activity to keep you from becoming more stiff. Acetaminophen/Tylenol (maximum 4000 mg per day) is safe to take with NSAIDs (ibuprofen/Motrin) for pain relief. Follow-up with primary care physician. Return to the emergency department with any new or worsening symptoms. Patient Language: Citizen Of [place] Prescriptions: New acetaminophen 500 mg capsule 1,000 mg PO Q6H PRN (Reason: pain) Qty: 30 0RF lidocaine 4 % adhesive patch,medicated 1 patch topical DAILY PRN (Reason: pain) Qty: 5 0RF methocarbamol 750 mg tablet 750 mg PO HS Qty: 7 0RF ibuprofen 600 mg tablet 600 mg PO TID PRN (Reason: pain) Qty: 30 0RF diclofenac sodium [Aleve (diclofenac)] 1 % gel 2 g topical QID Qty: 100 0RF Rx Instructions: apply to affected area No Action loperamide 2 mg capsule 2 mg PO Q4H PRN Rx Instructions: administer after each loose stool until symptoms controlled; do not exceed 8 mg per 24 hrs hydroxychloroquine 200 mg tablet 200 mg PO DAILY azelastine 137 mcg (0.1 %) aerosol,spray 1 spray intranasal Q12H Qty: 30 0RF Rx Instructions: administer into each nostril mupirocin 2 % ointment 1 applic topical BID Qty: 22 12RF alprazolam 1 mg tablet 1 mg PO DAILY propranolol 40 mg tablet 40 mg PO Q12H sertraline 50 mg tablet 50 mg PO DAILY prednisone 10 mg tablet 10 mg PO BID Qty: 20 0RF quetiapine 100 mg tablet Flovent HFA 220 mcg/actuation HFA aerosol inhaler INHALATION fluticasone propionate 50 mcg/actuation spray,suspension INTRANASAL prednisone 10 mg tablet 10 mg PO DAILY Qty: 30 0RF Rx Instructions: 60mg po daily on day 1, 40mg po daily on days 2-4, 30mg po daily on days 5-6, 20mg po daily on days 7-8, 10mg po daily on days 9-10 famotidine [Pepcid] 40 mg tablet 40 mg PO DAILY 10 Days Qty: 10 0RF magnesium sulfate (bulk) [Epsom Salt] 100 % crystals 1 applic topical BID Qty: 2500 0RF acetaminophen 500 mg capsule 1,000 mg PO Q6H PRN (Reason: pain) Qty: 30 0RF white petrolatum [White Petroleum Jelly] Gel 1 applic topical 4-12XD PRN (Reason: dry skin) Qty: 368 0RF polymyxin B sulf-trimethoprim [Polytrim] 10,000 unit- 1 mg/mL drops 1 drp RIGHT EYE Q3H 7 Days Qty: 10 0RF Rx Instructions: while awake; do not exceed 6 doses in 24 hours Follow-up/Referrals: Nitin Matthews MD [Primary Care Provider] - Stand Alone Forms: Work/School Release IP Time of Disposition: 17:29
[2024-04-25] MEDS: HYDROcodone/acetaminophen (*CRX) 5-325 MG TABLET 1 TAB PO (17:51)
[2024-04-25] MEDS: KETOROLAC 30 MG/ML VIAL (*BKC) 15 MG IM (17:52)
[2024-04-25 17:58] VITALS: BP 129/86; PULSE 66; RESP 18; TEMP 36.8; O2SAT 100
== END 2024-04-25 17:55 | disposition home or self-care (01) ==
PROVIDERS: Emergency Provider Student in an Organized Health Care Education/Training Program; PCP Emergency Medicine
DX: M47.812 Spondylosis without myelopathy or radiculopathy, cervical region (principal); M15.9 Polyosteoarthritis, unspecified; W19.XXXA Unspecified fall, initial encounter; J44.9 Chronic obstructive pulmonary disease, unspecified; I10 Essential (primary) hypertension; Z96.652 Presence of left artificial knee joint
CPT/HCPCS: 71045; 72125; 73030; 73060; 96372; 99284; A9270; J1885

== ENCOUNTER 2024-07-31 10:27 | Outpatient (CLI) | payer MEDICARE, SELFPAY ==
--- NOTE | ~2024-07-31 | MM_ITS ---
EXAMINATION: MM screening tony BI w elena HISTORY: Screening TECHNIQUE: Craniocaudal and mediolateral oblique 3-D tomosynthesis images were obtained and synthetic 2-D images were generated. CAD analysis was submitted and interpreted. COMPARISON: Comparison to multiple prior studies sequentially, with oldest reviewed study dated 07/04. BREAST PARENCHYMAL COMPOSITION: Dense: The breasts are heterogeneously dense, which may obscure small masses FINDINGS: No significant change to benign-appearing bilateral breast calcifications. There is no evid ence of suspicious mass, calcification, or architectural distortion to suggest malignancy in either b reast. There has been no suspicious interval change. IMPRESSION: 1. No mammographic evidence of malignancy. 2. Recommend routine screening mammography in one year. BI-RADS Category 2: Benign finding(s). Reviewed, dictated and finalized at location B.
--- OUTSIDE RECORDS SUMMARY | 2024-07-31 12:00 | XMS_ITS | Clinical Summary ---
Author Organization [facility] Address [address] [place] [address] Phone Care Team Providers Care Telemetry Nurse Name Role Phone Joselito Preciado MD Primary Care Provider [phone] Allergies No known active allergies Medications ondansetron (ZOFRAN) 8 MG Tablet 11/10/2016 Active omeprazole (PRILOSEC) 20 MG CAPSULE DELAYED RELEASE 10/20/2016 Act too PROAIR HFA 108 (90 Base) MCG/ACT Aerosol Solution 10/19/2016 Active fluticasone (FLONASE) 50 MCG/ACT Suspension 11/24/2016 Active hydroxychloroqu ine (PLAQUENIL) 200 MG Tablet 08/25/2016 Activ e Vit-Fe Fumarate-FA ( VITAMIN PO) Take by mouth. Active hydrocortisone 2.5 % Ointment 01/23/2017 Acti ve Ascorbic Acid 1000 MG Tablet daily. Activ e Cholecalciferol 25 mcg Capsule daily. Activ e Cyanocobalamin (VITAMIN B-12) 100 MCG Tablet TAKE 1 TABLET DAILY DIRECTED. PT UNSURE OF DOSE Active loperamide (IMODIUM) 2 MG Capsule TAKE 1 CAPSULE BY MOUTH FOUR TIMES DAILY NEEDED FOR DIARRHEA UP TO 10 DAYS 05/21/2020 Active Potassium Gluconate 2.5 MEQ Tablet daily. Active Vitamin A 4.5 MG (36092 UT) Tablet pt states once daily. pt unsure of dose. Active Family History Medical History Relation Name Comments Hypertension Father Heart Attack Mother Hypertension Mother Relation Name Status Comments Father Mother Social History Tobacco Use Types Packs/Day Years Used Date Smoking Tobacco: Never Smokeless Tobacco: Never Alcohol Use Standard Drinks/Week Comments No 0 (1 standard drink = 0.6 oz pur e alcohol) Sexually Active Control Partners Comments Yes Male Comments No Sex and Gender Information Value Date Recorded Sex Assigned at Not on file Legal Sex Female 12:06 AM CDT Gender Identity Not on file Sexual Orientation Not on file Last Filed Vital Signs Vital Sign Reading Time Taken Comments Blood Pressure 126/86 08/03/2020 8:47 AM CDT Pulse 88 08/03/2020 8:47 AM CDT Temperature 35.9 C (96.6 F) 08/03/2020 8:47 AM CDT Respiratory Rate 17 03/16/2017 2:08 PM CDT Oxygen Saturation 98% 08/03/2020 8:47 AM CDT Inhaled Oxygen Concentration - - Weight 91.5 kg (201 lb 12.8 oz) 08/03/2020 8:47 AM CDT Height 165.1 cm (5' 5 ) 08/03/2020 8:47 AM CDT Body Mass Index 33.58 08/03/2020 8:47 AM CDT Plan of Treatment Health Maintenance Due Date Last Done Comments Hepatitis C Virus (HCV) Screening 1955 TdaP Immunization 1955 Zoster Immunization (1 of 2) 11/05/1974 Colonoscopy 11/05/2000 Colorectal Cancer Screening 11/05/2000 Cologuard 11/05/2005 Immunochemical Fecal Occult Blood 11/05/2005 Pneumococcal Immunization (5 0+ years) (1 of 1 - PCV) 11/05/2005 Respiratory Syncytial Virus (RSV) Immunization (Adult) (1 - Risk 60-74 years 1-dose series) 2015 SARS-COV-2 Immunization (3 - Pfizer risk series) 10/17/2020 09/19/2020, 08/29/2020 Influenza Immunization (#1) 2024 02/08/2019 Hepatitis B Immunization Aged Out No longer eligible based on patient's age to complete this topic Meningococcal Immunization (ACWY) Aged Out No longer eligible b ased on patient's age to complete this topic Rotavirus Immunization Aged Out No lo nger eligible based on patient's age to complete this topic Insurance MEDICAID [place] MED[employer] C [employer] Care Teams Telemetry Nurse Relationship Specialty Start Date End Date Joselito Preciado MD [address] [place] [id number] PCP - General Banquet Lead 12/19/16
--- OUTSIDE RECORDS SUMMARY | 2024-07-31 12:00 | XMS_ITS ---
Author Organization [facility] Address [address] [place] [address] Care Team Providers Care Janitor Helper Name Role Phone Nitin Matthews MD Primary Care Provider Kristin Frazier RN Unavailable Unavailabl Mark Hart MD Unavailable [phone] Pedrito Nails MD Unavailable [phone] Active Problems Problem Noted Date Diagnosed Date Moderate persistent asthma without complication 01/08/2024 Vaginal atrophy 10/23/2023 Assessment & Plan (10/23/2023 12:15 PM CDT): As above. 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 She has some incontinence and abdominal pain but overall much improved from previously. -Continue Entyvio -RTC in 6 months High risk medications (not anticoagulants) long- term use 07/29/2019 Assessment & Plan (03/21/2024 5:08 PM ENCODING CLERK): High risk medications: As with all patients taking immunosuppressive biologic therapies or immunomodulators, we provide a balanced discussion on benefits and risks associated with these medications. Regarding potential risks, we employ a strategy of active monitoring for medication related toxicities. Toxicities and risks discussed in monitoring include, but are not limited to the following: infusion reactions including anaphylaxis; bacterial, viral and fungal infections; pancreatitis; heart failure; neurologic reactions; hematologic and solid tumors malignancy including an increased risk of lymphoma and skin cancers; bone marrow toxicity including anemia, lymphopenia and immune suppression; hepatotoxicity and potential renal toxicity. Patients are actively assessed through routine laboratories (Q4 month or more frequently) which I personally review and are encouraged to contact us with any questions regarding new symptom development. Continue Entyvio Assessment & Plan (07/29/2019 12:36 PM CDT): High risk medications: As with all patients taking immunosuppressive biologic therapies or immunomodulators, we provide a balanced discussion on benefits and risks associated with these medications. Regarding potential risks, we employ a strategy of active monitoring for medication related toxicities. Toxicities and risks discussed in monitoring include, but are not limited to the following: infusion reactions including anaphylaxis; bacterial, viral and fungal infections; pancreatitis; heart failure; neurologic reactions; hematologic and solid tumors malignancy including an increased risk of lymphoma and skin cancers; bone marrow toxicity including anemia, lymphopenia and immune suppression; hepatotoxicity and potential renal toxicity. Patients are actively assessed through routine laboratories (Q4 month or more frequently) which I personally review and are encouraged to contact us with any questions regarding new symptom development. Complex dyslipidemia 02/08/2019 Insomnia 02/08/2019 Acquired trigger finger 02/06/2019 Carpal tunnel syndrome 02/06/2019 Contracture of palmar fascia 02/06/2019 Current tear of medial cartilage or meniscus of knee 02/06/2019 Disorder of shoulder 02/06/2019 Encounter for removal of sutures 02/06/2019 Knee pain 02/06/2019 Lumbosacral spondylosis without myelopathy 02/06 Primary localized osteoarthrosis of ankle and fo ot 02/06/2019 Derangement of knee 02/06/2019 Osteoarthritis of knee 02/06/2019 Pain in limb 02/06/2019 Lumbar strain, initial encounter 12/23/2017 Osteoarthritis of lumbar spine 12/23/2017 Cutaneous sarcoidosis 10/24/2017 Iron deficiency anemia 10/16/2017 Ulcerative colitis 09/21/2017 Overview (03/14/2023): Year of diagnosis: 2000. Year symptoms began: 2000. Distribution: Left sided (E2). Extraintestinal manifestations: None. Complications: Pouchitis. Prior treatments: 5ASA, Vedo. Current treatment: vedo since 05/2017., Q8 week but levels low 9.6 in September 2019, no ab's. 11/2018 level 13.5 FC 10/2019 normal Prior surgeries: J pouch 2009, EUA 02/2023 for possible abnormal cells seen on pouchoscopy- nl exam Endoscopies: Pouchoscopy and EGD 08/2022 Impression: - Preparation of the colon was fair. - Ileal pouch with healthy appearing mucosa seen. Biopsied. - One polyp [Location], removed with a cold biopsy forceps. Resected and retrieved. Impression: - Normal esophagus. - Normal stomach. - Normal examined duodenum. - No specimens collected. Diagnosis: A. Small intestine, afferent limb, biopsy: - Small intestinal mucosa with no pathologic abnormality B. Small intestine, J pouch, biopsy: - Small intestinal mucosa with reactive epithelial changes C. Large intestine, efferent limb, biopsy: - Small intestinal mucosa with reactive epithelial changes D. Site not stated, designated hypertrophy papilla vs polyp , biopsy: - Cluster of atypical squamous cell proliferation beneath intestinal type glands (see comment) Diagnosis Comment In part D, there is a cluster of squamous cells beneath intestinal type glands. While the cytology of these squamous cells is rather bland, there is increased mitosis. A p16 immunostain shows diffuse reactivity. 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 Of note, the lesion is exhausted on deeper sectioning, and as such, should further ancillary tests are required (eg. HPV testing), it will require additional sampling. Pouchoscopy 09/2020 The examined portion of the ileum was normal. - The ileoanal pouch is normal. - The distal rectum and anal verge are normal on retroflexion view. - Biopsies were taken with a cold forceps for histology in the terminal ileum. - Biopsies were taken with a cold forceps for histology in the entire examined ileum. - Biopsies were taken with a cold forceps for histology. Diagnosis: A. Small intestine, afferent limb, biopsy: - Small intestinal mucosa with no pathologic abnormality B. Small intestine, pouch, biopsy: - Small intestinal mucosa with no pathologic abnormality C. Small intestine, efferent limb, biopsy: - Small intestinal mucosa with no pathologic abnormality 2018 bx's ok. Much stool present and difficult to assess. Histo normal. Imaging: None recent (last 02/2018) HBV immune status: Non immune Covid vaccine: [employer] Assessment & Plan (07/29/2019 12:36 PM CDT): UC s/p proctocolectomy w/ileal pouch in 2010. Currently on entyvio every 8 weeks. Did have low vedo level in November. Hx pouchitis. Having 5 stools daily on average. Improvement since increasing imodium. Some occasional constipation resolves with MOM. She reports some rectal discomfort with harder stools. Occasional blood on toilet paper -continue entyvio, hx low drug level, will repeat drug level prior to next infusion -okay to continue imodium -will give 2.5% hydrocortisone cream for her rectal symptoms. 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 Hx pouchitis. Started entyvio 2016. Endoscopic evaluation in 10/2018 demonstrated continued remission. Denies abdominal pain. Is having 8 stools daily with some nocturnal bowel movements. Denies any hematochezia. 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 No new lesions. Vaginal estrogen. Follow up in 6 months. Assessment & Plan (10/23/2023 12:12 PM CDT): IRVING 2-3 in setting of atrophic inflammation. Vaginal estrogen. Follow up in 6 months. Arthritis 12/19/2012 Headache(784.0) 12/19/2012 Hypertension 12/19/2012 Vaginal vault smear abnormal 12/19/2012 Encounter for preventive health examination 11/13 Reactive airway disease without complication Current Treatment and Therapy Plans No current plan information found. Other Current Plans VEDOLIZUMAB (ENTYVIO) IV* Plan Start Date:10/10/2018 Plan Provider:Pedrito Nails MD Linked Problems Ulcerative colitis with comp lication, unspecified location (HCC) Treatment Medications No medications scheduled. Past Treatment and Therapy Plans Lifetime Dose Tracking * Chemical Lifetime Dose Automatic Entry Manual Entr y DLP 539 mGycm 539 mGycm 0 mGycm Resolved Problems Problem Noted Date Diagnosed Date Resolved Date Hyperlipidemia 10/02/2019 03/21/2024 Disorder of iron metabolism 02/08/2019 03/21/2024 Body mass index 33.0-33.9, adult 09/11/2017 03/21/2024 Well woman exam 07/25/2017 03/21/2024 Chronic GERD 01/29/2017 03/21/2024 Gastroesophageal reflux disease 01/29/2017 03/21/2024 Pouchitis 01/29/2017 03/21/2024 Tuberculosis screening 01/26/201703/21 Vulvar intraepithelial neopl amaris (IRVING) grade 2 03/29/2013 03/21/2024 Anemia 12/19/2012 03/21/2024 Diarrhea 04/20/2011 03/21/2024 Encounter for eye exam 10/05/201003/21
--- OUTSIDE RECORDS SUMMARY | 2024-07-31 12:00 | XMS_ITS | Encounter Summary ---
Author Organization [facility] Address [address] [place] [address] Phone Care Team Providers Care Mobile Application Tester Name Role Phone Joselito Preciado MD Primary Care Provider [phone] Nitin Matthews MD Primary Care Provider [phone] Unknown, Notinfile Unavailable Unavailable Kristin Frazier RN Unavailable UnavailMark Boggs MD Unavailable [phone] Pedrito Nails MD Unavailable [phone] Encounter Details Date Type Department Care Team (Late st Contact Info) Description 07/25/2017 Orders Only [facility] ProviderErnesto MD [address] [place] [address] Social History Tobacco Use Types Packs/Day Years Used Date Smoking Tobacco: Never Comments Unknown Sex and Gender Information Value Date Recorded Sex Assigned at Not on file Legal Sex Female 3:28 AM 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 us Historical Provider LAB BLOOD ORDERABLES Marquita l Result documented in this encounter Visit Diagnoses Not on filedocumented in this encounter Care Teams Mobile Application Tester Relationship Specialty Start Date End Date Joselito Preciado MD [address] [place] [address] PCP - General 06/30/16 01/23/19 Nitin Matthews MD [address] [place] [address] PCP - General Family Medicine 01/24/19 Unknown, Notinfile Referring Physician 10/06/20 12/26/22 Kristin Frazier, RN Registered Nurse Pulmonary Disease 06/13/22 Mark Muñoz MD [address] [facility] [phone] [place] [address] Surgeon Colon and Rectal Surgery 12/20/22 Pedrito Nails MD [address] [place] [address] Supervisor Finish End Gastroenterology 12/27/22 documented as of this encounter
--- OUTSIDE RECORDS SUMMARY | 2024-07-31 12:00 | XMS_ITS | Referral Summary ---
Author Organization [facility] Address [address] [place] [address] Care Team Providers Care Writer Producer Name Role Phone Nitin Matthews MD Primary Care Provider Kristin Frazier RN Unavailable Unavailabl Mark Hart MD Unavailable [phone] Pedrito Nails MD Unavailable [phone] Encounters Date Type Department Care Team Description 07/19/2024 1:00 PM DRILLING CONTRACTOR Infusion [facility] [address] [place] [phone] Ulcerative colitis with complication, unspecified location (HCC) (Primary Dx) 07/16/2024 Orders Only [facility] [address] [place] [address] Medical Office Building [address], [address] [place] [phone] Pedrito Nails MD 07/12/2024 Orders Only [facility] [address] [place] [address] Office [address], [address] [place] [phone] Pedrito Nails MD 07/12/2024 Orders Only [facility] [address] [place] [phone] Hannah Lopez, AIDE 06/17/2024 11:00 AM DRILLING CONTRACTOR Therapy [facility] [address] [facility] 11th [place] [address] [place] [phone] Yessenia Dejesus, RISSA Dysphonia (Primary Dx); Dyspnea, unspecified type 06/07/2024 Telephone [facility] [address] [facility] 12th [place] [address] [place] [phone] Vandana Conrad Medical Question/Miscellaneou s (insruance) 05/24/2024 1:00 PM DRILLING CONTRACTOR Infusion [facility] [address] [facility] [address] [place] [address] Ulcerative colitis with complication, unspecified location (HCC) (Primary Dx) from Last 3 Months Allergies Active Allergy Reactions Criticality Noted Date Comments Zinc Nausea & Vomiting Low 04/18/2023 Medications fluticasone (FLONASE) 50 mcg/actuation nasal sprayIndications:A llergic Rhinitis Administer 2 sprays into each nostril daily as needed for allergies or rhinitis Active vitamin A palmitate 15,000 unit tabletIndications: vitamin A deficiency Take 1 tablet by mouth every morning Active cyanocobalamin (Vitamin B-12) 100 mcg tabletIndications: Prevention of Vitamin B12 Deficiency Take 10 tablets (1,000 mcg total) by mouth every morning Active ascorbic acid (VITAMIN C) 1,000 mg tabletIndications: supplement Take 1 tablet (1,000 mg total) by mouth every morning Active cholecalciferol (VITAMIN D-3) 1,000 unitIndications:mahajan ppleemnt Take 1 tablet/capsule (1,000 Units total) by mouth every morning Active soft lens adjunctive solutions (CRIS REWETTING DROPS OPHT)Indications:d ry eye Administer 1 drop into both eyes 2 (two) times a day as needed (dry eye) Active multivitamin capsuleIndications :Vitamin Deficiency Prevention Take 1 capsule by mouth every morning Active potassium gluconate 2.5 mEq tabletIndications: hypokalemia prevention Take 1 tablet by mouth every morning Active Prevident 5000 Enamel Protect 1.1-5 % paste 10/20/19 21 Active PreviDent 5000 Booster Plus 1.1 % paste 10/17/19 21 Active omeprazole (PriLOSEC) 20 mg capsuleIndications :gerd Take 1 capsule (20 mg total) by mouth every morning 05/28/19 21 Active erythromycin (ILOTYCIN) ophthalmic ointmentIndication s:Ocular Infection Apply 1 Application to both eyes every 12 (twelve) hours as needed Active flurbiprofen (OCUFEN) 0.03 % ophthalmic solutionIndication s:Blepharoconjunct ivitis Administer 1 drop into both eyes daily as needed 03/24/20 21 Active polymyxin B-trimethoprim (POLYTRIM) ophthalmic solutionIndication s:Bacterial Conjunctivitis Administer 1 drop into both eyes every 8 (eight) hours as needed 05/03/20 21 Active prednisoLONE acetate (PRED FORTE) 1 % ophthalmic suspensionIndicati ons:Severe Ocular Inflammation Administer 1 drop into both eyes every morning 05/05/20 21 Active triamcinolone (KENALOG) 0.1 % ointment Apply topically 2 (two) times a day 80 g 2 06/22/19 22 Active levocetirizine (XYZAL) 5 mg tabletIndications: Allergic Rhinitis Take 1 tablet (5 mg total) by mouth daily as needed for allergies qd Active acetaminophen (ARTHRITIS PAIN RELIEF, ACETAM, ORAL)Indications:p ain Take 650 mg by mouth every 6 (six) hours as needed (pain) 650mg prn Active azelastine (ASTELIN) 137 mcg (0.1 %) nasal sprayIndications:S easonal Allergic Rhinitis Administer 2 sprays into each nostril 2 (two) times a day 07/22/19 22 Active LORazepam (ATIVAN) 2 mg tabletIndications: anxiety Take 1 tablet (2 mg total) by mouth nightly 03/04/20 22 Active HYDROcodone-acetam inophen (NORCO) 5-325 mg per tabletIndications: Pain Take 1 tablet by mouth every 4 (four) hours as needed for pain 04/26/20 22 Active mupirocin (BACTROBAN) 2 % ointmentIndication s:Minor Bacterial Skin Infections Apply 1 Application topically daily as needed Active Rybelsus 7 mg tabletIndications: type 2 diabetes mellitus Take 1 tablet (7 mg total) by mouth every morning 07/28/19 23 Active hydrocortisone 2.5 % cream Apply topically 2 (two) times a day Apply to hemorrhoids twice daily 30 g 3 08/12/19 23 Active meloxicam (MOBIC) 15 mg tabletIndications: Osteoarthritis Take 1 tablet (15 mg total) by mouth every morning 08/27/19 23 Active omega 5-psi-zfa-fish oil 350 mg-235 mg- 90 mg-597 mg capsule,delayed release(DR/EC)Shanique cations:hypertrigl yceridemia Take 1 tablet by mouth every morning Active pjsggsx-ybhz-gdsrs -oreg-capryl 100 mg-150 mg- 50 mg-150 mg capsuleIndications :supplement Take 1 tablet by mouth every morning Active acidophilus-pectin , citrus 100 million cell-10 mg capsuleIndications :gut health/supplement Take 1 capsule by mouth every morning Active sertraline (ZOLOFT) 50 mg tablet Take 1 tablet (50 mg total) by mouth daily Active propranoloL (INDERAL) 40 mg tablet Take 1 tablet (40 mg total) by mouth bedtime Active ALPRAZolam (XANAX) 1 mg tablet Take 1 tablet (1 mg total) by mouth nightly as needed for anxiety Active vedolizumab (ENTYVIO) 300 mg recon solnIndications:Ul cerative Colitis Infuse 5 mL (300 mg total) into a venous catheter every 8 (eight) weeks Every 8weeks 5 mL 8 03/14/20 23 Active cefdinir (OMNICEF) 300 mg capsule Take 1 capsule (300 mg total) by mouth every 12 (twelve) hours 03/15/20 23 Active albuterol HFA (PROVENTIL HFA,VENTOLIN HFA,PROAIR HFA) 90 mcg/actuation inhalerIndications :Bronchospasm Prevention Inhale 2 puffs every 6 (six) hours as needed for wheezing or shortness of breath 1 each 5 06/21/19 24 Active hydroxychloroquine (PLAQUENIL) 200 mg tabletIndications: Connective Tissue Disease TAKE 1 TABLET BY MOUTH DAILY 180 tablet 1 06/27/19 24 Active ALPRAZolam (XANAX) 2 mg tablet Take by mouth nightly as needed 06/16/19 24 Active loperamide (IMODIUM) 2 mg capsule TAKE 1 CAPSULE(2 MG) BY MOUTH FOUR TIMES DAILY NEEDED FOR DIARRHEA 360 capsule 1 09/20/19 24 Active budesonide-formote roL (Symbicort) 160-4.5 mcg/actuation inhalerIndications :Acute Asthma Attack,Maintenance Therapy for Asthma Inhale 2 puffs 2 (two) times a day Rinse mouth with water after use. Do not swallow. 10.2 g 5 09/28/19 Active estradioL (ESTRACE) 0.01 % (0.1 mg/gram) vaginal creamIndications:A trophic Vaginitis associated with Menopause Insert 1 g into the vagina 3 (three) times a week 42.5 g 3 10/25/19 Active tiotropium bromide (SPIRIVA RESPIMAT) 2.5 mcg/actuation inhaler Inhale 2 puffs daily 1 each 01/15/20 Active ibuprofen (ADVIL,MOTRIN) 600 mg tablet Take 1 tablet (600 mg total) by mouth 3 (three) times a day as needed for pain 04/25/20 Active methocarbamoL (ROBAXIN) 750 mg tablet Take 1 tablet (750 mg total) by mouth nightly at bedtime. 04/25/20 Active Active Problems Problem Noted Date Diagnosed Date [...] 10/02/2019 Assessment & Plan (03/21/2024 5:10 PM DRILLING CONTRACTOR): 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 She has some incontinence and abdominal pain but overall much improved from previously. -Continue Entyvio -RTC in 6 months High risk medications (not anticoagulants) long- term use 07/29/2019 Assessment & Plan (03/21/2024 5:08 PM DRILLING CONTRACTOR): High risk medications: As with all patients [...] HBV immune status: Non immune Covid vaccine: CasterStats Assessment & Plan (07/29/2019 12:36 PM CDT): [...] 05/29/2012 Assessment & Plan (04/30/2024 10:50 AM DRILLING CONTRACTOR): IRVING 2-3 in setting of atrophic inflammation. No new lesions. Vaginal estrogen. Follow up in 6 months. Assessment & Plan (10/23/2023 12:12 PM CDT): IRVING 2-3 in setting of atrophic inflammation. Vaginal estrogen. Follow up in 6 months. Arthritis 12/19/2012 Headache(784.0) 12/19/2012 Hypertension 12/19/2012 Vaginal vault smear abnormal 12/19/2012 Encounter for preventive health examination 11/13 Reactive airway disease without complication Resolved Problems Problem Noted Date Diagnosed Date [...] 04/20/2011 03/21/2024 Encounter for eye exam 10/05/201003/21 Immunizations Immunization Administration Dates Next Due Influenza, Quadrivalent, Split, Intramuscular Influenza, Quadrivalent, Spl it, Preservative Free, Intramuscular 02/08/2019 Influenza, Trivalent, Preservative Free, Intramu scular 04/27/2017 Pfizer SARS-CoV-2 Monovalent Vaccination (12+ Yrs) MAYO-READY TO USE 08/02/2021 Pfizer SARS-CoV-2 Monovalent Vaccination (12+ Yrs) PURPLE 08/29/2020 Pneumococcal Conjugate PCV 13 04/27/2017 Pneumococcal Polysaccharide PPV23 07/25/2019 Social History Tobacco Use Types Packs/Day Years Used Date Smoking Tobacco: Never Smokeless Tobacco: Never Tobacco Cessation:Counseling Given: Not Answered Alcohol Use Standard Drinks/Week Comments No 0 (1 standard drink = 0.6 oz pur e alcohol) AUDIT-C Answer Date Recorded Q1: How often do you have a drink containing alcohol? Never 02/13/2023 Q2: How many drinks containi ng alcohol do you have on a typical day when you are drinking? Patient does not drink Q3: How often do you have si x or more drinks on one occasion? Never 02/13/2023 Hunger Vital Sign Answer Date Recorded Within the past 12 months, y ou worried that your food would run out before you got the money to buy more. Never true 07/20/19 25 Within the past 12 months, t he food you bought just didn't last and you didn't have money to get more. Never true 07/19/2024 Personal Safety Answer Date Recorded Have you ever been in or are you currently in a harmful physical or emotional relationship or is someone making you feel afraid or unsafe? Denies 07/19/2024 Comments No Sex and Gender Information Value Date Recorded Sex Assigned at Not on file Legal Sex Female 3:28 AM DRILLING CONTRACTOR Gender Identity Not on file Sexual Orientation Not on file Last Filed Vital Signs Vital Sign Reading Time Taken Comments Blood Pressure 132/63 07/19/2024 2:15 PM DRILLING CONTRACTOR Pulse 58 07/19/2024 2:15 PM DRILLING CONTRACTOR Temperature 35.6 C (96 F) 07/19/2024 12:55 PM DRILLING CONTRACTOR Respiratory Rate 16 07/19/2024 12:55 PM DRILLING CONTRACTOR Oxygen Saturation 100% 07/19/2024 2:15 PM DRILLING CONTRACTOR Inhaled Oxygen Concentration - - Weight 86.2 kg (190 lb) 07/19/2024 12:55 PM DRILLING CONTRACTOR Height 165.1 cm (5' 5 ) 04/29/2024 11:30 AM DRILLING CONTRACTOR Body Mass Index 31.62 04/29/2024 11:30 AM DRILLING CONTRACTOR Plan of Treatment Not on file Procedures Procedure Name Priority Date/Time Associated Diagnosis Comments FLEXIBLE SIGMOIDOSCOPY REPORT 07/28/2014 COLONOSCOPY REPORT 09/03/2012 from Last 3 Months or Most Recently Relevant to Health Maintenance Results * FLEXIBLE SIGMOIDOSCOPY REPORT (07/28/2014) Anatomical Region Laterality Modality Other Narrative 07/28/2014 Ordered by an unspecified provider. us Historical Provider GI PROCEDURE ORDERABLES F inal Result * COLONOSCOPY REPORT (09/03/2012) Anatomical Region Laterality Modality Other Narrative 09/03/2012 Ordered by an unspecified provider. us Historical Provider GI PROCEDURE ORDERABLES F inal Result from Last 3 Months or Most Recently Relevant to Health Maintenance Insurance MEDICARE IDPA HUMANA CLAIMS OFFICE HUMANA CHOICE MEDICARE PPO MEDICARE SOLUTIONS HUMANA CLAIMS OFFICE HUMANA CHOICE MEDICARE PPO HUMANA CLAIMS OFFICE Advance Directives For more information, please contact: [phone] * Full Code (Latest Code Status on File) Date Activated Date Inactivated Comments 08/30/2022 1:11 PM 08/30/2022 7:08 PM * Full Code Date Activated Date Inactivated Comments 10/05/2020 8:40 AM 10/05/2020 2:34 PM * Full Code Date Activated Date Inactivated Comments 11/05/2018 9:04 AM 11/05/2018 3:07 PM Care Teams Writer Producer Relationship Specialty Start Date End Date Nitin Matthews MD [address] [place] [address] PCP - General Family Medicine 01/24/19 Kristin Frazier, RN Registered Nurse Pulmonary Disease 06/13/22 Mark Muñoz MD [address] [facility] [phone] [place] [address] Surgeon Colon and Rectal Surgery 12/20/22 Pedrito Nails MD [address] [place], [place] [id number] Textile Conservator Gastroenterology 12/27/22
--- OUTSIDE RECORDS SUMMARY | 2024-07-31 12:00 | XMS_ITS | Clinical Summary ---
Author Organization [facility] Address [address] [place] [address] Care Team Providers Care Hybrid Powertrain Development Engineer Name Role Phone Nitin Matthews MD Primary Care Provider [phone] Kristin Frazier RN Unavailable Unavailabl e Mark Muñoz MD Unavailable [phone] Pedrito Nails MD Unavailable [phone] Allergies Active Allergy Reactions Criticality Noted Date [...] mouth every morning 08/27/19 23 Active omega 2-lek-uwr-fish oil 350 mg-235 mg- 90 mg-597 mg capsule,delayed release(DR/EC)Shanique cations:hypertrigl yceridemia Take 1 tablet by mouth every morning Active tbcovfm-ytnj-felcg -oreg-capryl 100 mg-150 mg- 50 mg-150 mg [...] Do not swallow. 10.2 g 5 09/28/19 24 Active estradioL (ESTRACE) 0.01 % (0.1 mg/gram) vaginal creamIndications:A trophic Vaginitis associated with Menopause Insert 1 g into the vagina 3 (three) times a week 42.5 g 3 10/25/19 24 Active tiotropium bromide (SPIRIVA RESPIMAT) 2.5 mcg/actuation inhaler Inhale 2 puffs daily 1 each 11 01/15/20 24 Active ibuprofen (ADVIL,MOTRIN) 600 mg tablet Take 1 tablet (600 mg total) by mouth 3 (three) times a day as needed for pain 04/25/20 24 Active methocarbamoL (ROBAXIN) 750 mg tablet Take 1 tablet (750 mg total) by mouth nightly at bedtime. 04/25/20 24 Active Active Problems Problem Noted Date Diagnosed [...] 10/02/2019 Assessment & Plan (03/21/2024 5:10 PM NUCLEAR OPERATIONS SPECIALIST): 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 She has some incontinence and abdominal pain but overall much improved from previously. -Continue Entyvio -RTC in 6 months High risk medications (not anticoagulants) long- term use 07/29/2019 Assessment & Plan (03/21/2024 5:08 PM NUCLEAR OPERATIONS SPECIALIST): High risk medications: As with all patients [...] Small intestinal mucosa with no pathologic abnormality 2019 bx's ok. Much stool present and difficult to assess. Histo normal. Imaging: None recent (last 02/2018) HBV immune status: Non immune Covid vaccine: Quemulus Assessment & Plan (07/29/2019 12:36 PM CDT): [...] 05/29/2012 Assessment & Plan (04/30/2024 10:50 AM NUCLEAR OPERATIONS SPECIALIST): IRVING 2-3 in setting of atrophic inflammation. [...] 04/20/2011 03/21/2024 Encounter for eye exam 10/05/201003/21 Encounters Date Type Department Care Team Description 07/19/2024 1:00 PM NUCLEAR OPERATIONS SPECIALIST Infusion [facility] [address] [place] [address] [place] [phone] Ulcerative colitis with complication, unspecified location (HCC) (Primary Dx) 07/16/2024 Orders Only [facility] [address] [facility] [address], [address] [place] [phone] Pedrito Nails MD 07/12/2024 Orders Only [facility] [address] [facility] [address], [address] [place] [phone] Pedrito Nails MD 07/12/2024 Orders Only [facility] [address] [facility] [address] [place] [phone] Hannah Lopez RN 06/17/2024 11:00 AM NUCLEAR OPERATIONS SPECIALIST Therapy [facility] [address] [facility] 11th [place] [address] [place] [phone] Yessenia Dejesus, RISSA Dysphonia (Primary Dx); Dyspnea, unspecified type 06/07/2024 Telephone [facility] [address] [facility] 12th [place] [address] [place] [phone] Vandana Conrad Medical Question/Miscellaneou s (insruance) 05/24/2024 1:00 PM NUCLEAR OPERATIONS SPECIALIST Infusion [facility] [address] [facility] [address] [place] [phone] Ulcerative colitis with complication, unspecified location (HCC) (Primary Dx) from Last 3 Months Immunizations Immunization Administration Dates Next Due Influenza, Quadrivalent, Split, Intramuscular Influenza, Quadrivalent, Spl it, Preservative Free, Intramuscular 02/08/2019 Influenza, Trivalent, Preservative Free, Intramu scular 04/27/2017 Pfizer SARS-CoV-2 Monovalent Vaccination (12+ Yrs) MAYO-READY TO USE 08/02/2021 Pfizer SARS-CoV-2 Monovalent Vaccination (12+ Yrs) PURPLE 08/29/2020 Pneumococcal Conjugate PCV 13 04/27/2017 Pneumococcal Polysaccharide PPV23 07/25/2019 Surgical History Surgery Date Site/Laterality Comments IR FINE NEEDLE ASPIRATION W IMAGE GUIDANCE 05/05/2014 N/A BIOPSY LYMPH NODE SUPERFICIAL 05/05/2014 N/A COLOPROCTECTOMY W/ ILEO J POUCH 05/15/2012 - 05/14/2013 HYSTERECTOMY 05/15/1986 - 05/14/1987 POUCHOSCOPY 08/30/2022 11/05/2018; 10/05/2020 PARTIAL KNEE ARTHROPLASTY Left unknown date CARPAL TUNNEL RELEASE Bilateral multiple- 3 on right and 3 on left; unknown dates TOE SURGERY 05/15/2022 - 06/14/2022 Left TONSILLECTOMY 05/15/2014 - 05/14/2015 Bilateral SECTION 05/15/1985 - 05/14/1986 CATARACT EXTRACTION 03/15/2022 - 04/13/2022 Right CATARACT EXTRACTION Right unknown date Medical History Medical History Date Comments Hx Other Medical Ulcerative coli tis; Comments: [facility] 02/24/2015 - Hx Other Medical Cholelithiasis, gastrointestinal bleeding; Comments: [facility] 02/24/2015 - Hypertension Hypertension Sarcoidosis Sarcoidosis Body mass index (BMI) of 30. 0-30.9 in adult Body mass index 30.0-30.9, a dult - (Added by TW Conv) GERD (gastroesophageal reflux disease) History of transfusion Ulcerative colitis (HCC) Chronic diarrhea Asthma COPD (chronic obstructive pu lmonary disease) (HCC) Hyperlipidemia Anxiety Gout Arthritis Depression Family History Medical History Relation Name Comments Hypertension Brother Family history of hypertension - (Added by TW Conv) Colon cancer Cousin 1 Family history of colon cancer - (Added by TW Conv) Rectal cancer Cousin 2 Rectal cancer - (Added by TW Conv) Cancer Cousin 3 Family history of malignant neoplasm - (Added by TW Conv) Kidney disease Cousin 4 Family histor y of kidney disease - (Added by TW Conv) Liver disease Cousin 5 Family history of liver disease - (Added by TW Conv) Heart disease Father Family history of cardiac disorder - (Added by TW Conv) Hypertension Father Family history of hypertension - (Added by TW Conv) Ulcerative colitis Father Family hi story of ulcerative colitis - (Added by TW Conv) Cancer Mother Family history of malignant neoplasm - (Added by TW Conv) Heart disease Mother Family history of cardiac disorder - (Added by TW Conv) Hypertension Mother Family history of hypertension - (Added by TW Conv) Leukemia Mother Cancer Other 1 Family history of malignant neoplasm - Relation: Aunt (Added by TW Conv) Kidney disease Other 2 Family histor y of kidney disease - Relation: Uncle (Added by TW Conv) Liver disease Other 3 Family history of liver disease - Relation: Uncle (Added by TW Conv) Anesthesia problems Neg Hx Relation Name Status Comments Brother Cousin 1 Cousin 2 Cousin 3 Cousin 4 Cousin 5 Father Mother Other 1 Other 2 Other 3 Social History Tobacco Use Types Packs/Day Years [...] on file Legal Sex Female 3:28 AM NUCLEAR OPERATIONS SPECIALIST Gender Identity Not on file Sexual Orientation Not on file Obstetrics History Para Term AB IAB SAB Ectopic Multiple Livin g Live Births 2 2 2 2 Date Outcome GA Total Labor Labor/2nd/3rd Weight Sex Type Anes PTL Erna A1 A5 Name Clin Term Term Last Filed Vital Signs Vital Sign Reading Time Taken Comments Blood Pressure 132/63 07/19/2024 2:15 PM NUCLEAR OPERATIONS SPECIALIST Pulse 58 07/19/2024 2:15 PM NUCLEAR OPERATIONS SPECIALIST Temperature 35.6 C (96 F) 07/19/2024 12:55 PM NUCLEAR OPERATIONS SPECIALIST Respiratory Rate 16 07/19/2024 12:55 PM NUCLEAR OPERATIONS SPECIALIST Oxygen Saturation 100% 07/19/2024 2:15 PM NUCLEAR OPERATIONS SPECIALIST Inhaled Oxygen Concentration - - Weight 86.2 kg (190 lb) 07/19/2024 12:55 PM NUCLEAR OPERATIONS SPECIALIST Height 165.1 cm (5' 5 ) 04/29/2024 11:30 AM NUCLEAR OPERATIONS SPECIALIST Body Mass Index 31.62 04/29/2024 11:30 AM NUCLEAR OPERATIONS SPECIALIST Plan of Treatment Health Maintenance Due Date Last Done Comments Breast Cancer Screening-Mammogram 1955 Depression Screening 1955 Hepatitis C Screening 1955 Osteoporosis Screening-Bone Density Scan 1955 DTaP/Tdap/Td Vaccine (1 - Tdap) 11/05/1966 Zoster Vaccine (1 of 2) 11/05/1974 Well Visit 65+ 11/05/2020 Covid-19 Vaccine (3 - Pfizer risk series) 08/30/2021 08/02/2021, 08/29/2020 Colon Cancer Screening-Colonoscopy 09/03/20222012 Influenza Vaccine (#1) 2024 9, 02/08/2019, 04/27/2017 Fall Risk Assessment 02/14/2024 02/13/2023 Pneumococcal vaccine 65+ (3 of 3 - PPSV23, PCV20 or PCV21) 07/24/2024 07/25/2019, 04/27/2017 Colon Cancer Screening-CT Colonography Discontinued 07/28/2014, 09/03/2012 Colon Cancer Screening-DNA Stool Discontinued 07/29/19 15, 09/03/2012 Colon Cancer Screening-FIT Discontinued 07/28/2014, Colon Cancer Screening-Sigmoidoscopy Discontinued 07/13, 09/03/2012 Hepatitis B Screening Completed 03/15/2022 Procedures Procedure Name Priority Date/Time Associated Diagnosis [...] by an unspecified provider. us Historical Provider MD DANIEL PROCEDURE ORDERABLES F inal Result from Last 3 Months or Most Recently Relevant to Health Maintenance Insurance MEDICARE IDPA HUMANA CLAIMS OFFICE [employer] CHOICE MEDICARE PPO MEDICARE SOLUTIONS HUMANA CLAIMS OFFICE [employer] CHOICE MEDICARE PPO HUMANA CLAIMS OFFICE Advance Directives For more information, please contact: [phone] * Full Code (Latest Code Status on File) Date Activated Date Inactivated Comments 08/30/2022 1:11 PM 08/30/2022 7:08 PM * Full Code Date Activated Date Inactivated Comments 10/05/2020 8:40 AM 10/05/2020 2:34 PM * Full Code Date Activated Date Inactivated Comments 11/05/2018 9:04 AM 11/05/2018 3:07 PM Care Teams Hybrid Powertrain Development Engineer Relationship Specialty Start Date End Date Nitin Matthews MD [address] [place] [address] PCP - General Family Medicine 01/24/19 Kristin Frazier, RN Registered Nurse Pulmonary Disease 06/13/22 Mark Muñoz MD [address] [facility] [place] [phone] [place] [address] Surgeon Colon and Rectal Surgery 12/20/22 Pedrito Nails MD [address] [place] [address] Staffing Manager Gastroenterology 12/27/22
== END 2024-07-31 10:28 | disposition home or self-care (01) ==
LOC: ANHIMG 10:29
PROVIDERS: PCP Emergency Medicine; Visit Provider Emergency Medicine
DX: Z12.31 Encounter for screening mammogram for malignant neoplasm of breast (principal)
CPT/HCPCS: 77063; 77067

== ENCOUNTER 2024-10-24 19:08 | Inpatient (IN) | payer MEDICARE, SELFPAY ==
--- NOTE | ~2024-10-24 | XR_ITS ---
XR abdomen gastric tube insert Ordering provider: Cong Marcano MD History: . post ng tube placement . Comparison: None. FINDINGS: BOWEL: Dilated bowel loops are seen in the upper abdomen with air-fluid levels suggestive of obstruct ion versus ileus. Follow-up advised. Nasogastric tube is seen with the tip in the fundus of the stomach. ORGANOMEGALY: None. SIGNIFICANT PATHOLOGIC CALCIFICATIONS: None. OTHER: No free air is seen under the diaphragm. IMPRESSION: Dilated bowel loops suggestive of obstruction. Follow-up advised. Nasogastric tube with the tip in the fundus of the stomach. Reviewed, dictated and finalized at location A.
--- NOTE | ~2024-10-24 | XR_ITS ---
Supine and upright views of the abdomen Clinical history: Bowel obstruction COMPARISON: 10/26/2024 Findings: Dilated bowel loops are again present in the epigastric region and left upper quadrant. No free air evident.. No abnormal mass lesion or calcification is seen. Osseous structures are intact. Impression: Probable small bowel obstruction, without significant interval change. Reviewed, dictated and finalized at [facility]. Impression: Probable small bowel obstruction, without significant interval change.
--- NOTE | ~2024-10-24 | XR_ITS ---
XR abdomen/kub 1V 10/26/2024 08:32 Indication: Obstruction Procedure: KUB Comparison: CT dated 10/24/2024 Findings: NG tube coiled in the stomach. Dilated small bowel, consistent with obstruction. Colon appe ars decompressed. No acute osseous abnormality. Lung bases unremarkable. Impression: 1: Dilated small bowel, compatible with obstruction. Reviewed, dictated and finalized at location B. Impression: 1: Dilated small bowel, compatible with obstruction.
--- NOTE | ~2024-10-24 | CT_ITS ---
CT abdomen pelvis w con Ordering provider: Cong Marcano MD History: 68 years Female with . lower abdominal pain . Comparison: None. Technique: CT abdomen and pelvis with IV and without oral contrast. Automated exposure control and it erative reconstruction technique were employed. The dose-length product was 1083.71 mGy-cm. 100 mL Om nipaque 350 was given IV. Findings: VISUALIZED LOWER CHEST: Tiny nodule measuring 5 mm in the left lower lobe. Calcification the right pa ra esophageal and left hilar lymph nodes. Otherwise, Normal. UPPER ABDOMINAL ORGANS: Liver: Normal. Gallbladder: Distended with no stones. Spleen: Normal. Stomach/duodenum: Small sliding hiatus hernia. Pancreas: Prominent pancreatic duct. Follow-up advised. Adrenals: Normal. Kidneys: Normal. PELVIC ORGANS: The bladder is normal. BOWEL AND MESENTERY: Colon: Dilated bowel loops are seen in the left upper abdomen with air-fluid levels and dilated smal l bowel loops suggestive of obstruction versus ileus. The area of transition is most likely at the si te of surgery in the sigmoid colon with highly suggestive stricture. Postoperative changes in the are a of the rectum with thickened wall. Peritoneum/mesentery: No free air. Minimal free fluid in the left side of the pelvis adjacent to the rectum. No mesenteric lymphadenopathy. RETROPERITONEUM: Mild atheromatous disease of the abdominal aorta. Small para-aortic lymph nodes are noted with the largest measures 1.3 cm. MUSCULOSKELETAL: Superficial soft tissues: The superficial soft tissues are normal. Bones: Age appropriate degenerative changes of the spine. Bilateral sacroiliacs. IMPRESSION: 1. Dilated bowel suggestive of obstruction with the area of transition seen in the left mid abdomen most likely a site of stricture. 2. Small sliding hiatus hernia. Reviewed, dictated and finalized at location A.
--- NOTE | ~2024-10-24 | XR_ITS ---
EXAMINATION: XR abdomen/kub 1V DATE: 10/29/2024 08:06 INDICATION: Small bowel obstruction TECHNIQUE: A supine view of the abdomen on 2 radiographs was obtained. COMPARISON: KUB dated 10/27/[address] dated 10/24/2024 FINDINGS: Persistent mildly dilated loops of small bowel in the left upper quadrant which appears to extend to identical transition point in the central abdomen as on the previous CT scan. There are a few loops o f nondilated gas containing loops of small bowel in the left lower quadrant and right abdomen. Rectos igmoid anastomotic suture line in the deep pelvis. Lung bases are clear. Heart size is normal. IMPRESSION: 1. Persistent small bowel obstruction with likely unchanged transition point in the central abdomen. Reviewed, dictated and finalized at location A.
[2024-10-24 19:21] VITALS: BP 179/99; PULSE 58; RESP 18; TEMP 37.1; O2SAT 100
[2024-10-24] MEDS: MORPHINE SULFATE (*CRX) 4 MG/ML INJ IV PUSH (19:32)
[2024-10-24] MEDS: ONDANSETRON INJ 4 MG/2 ML VIAL IV PUSH (19:32)
[2024-10-24] MEDS: SODIUM CHLORIDE 0.9% IV 1,000 ML 999 ML IV CONT ×2 (19:32→23:18)
--- OUTSIDE RECORDS SUMMARY | 2024-10-24 19:34 | XMS_ITS | Referral Summary ---
Author Organization [facility] Address [address] [place] [address] Care Team Providers Care Interstate Bus Driver Name Role Phone Nitin Matthews MD Primary Care Provider Kristin Frazier RN Unavailable Unavailabl Mark Hart MD Unavailable [phone] Pedrito Nails MD Unavailable [phone] Encounters Date Type Department Care Team Description 10/10/2024 Orders Only [facility] Gastroenterology [address] [place] [address] 12th [place] [address] Pedrito Nails MD 10/08/2024 Orders Only [facility]enter[facility] [address] [place] [address] 12th [place] [address] Pedrito Nails MD High risk medications (not anticoagulants) long-term use (Primary Dx); Ulcerative pancolitis without complication (HCC) 09/27/2024 Orders Only [facility] Pulmonary [address] [facility] 8th [place] [id number] Fransico Silva MD PhD 09/23/2024 Results Follow-Up [facility] [address] [place] [address] 12th [place] [address] [place] [phone] Pedrito Nails MD CBC with auto differential, Comprehensive metabolic panel, CRP (acute phase) 09/20/2024 Telephone [facility] [address] [place] [address] [place] [address] Vandana Conrad Med Management (Loperamide - New pharmacy?) 09/19/2024 4:20 PM CDT Office Visit [facility]enter[facility] [address] [place] [address] [place] [address] [place] [address] Pedrito Nails MD High risk medications (not anticoagulants) long-term use; Ulcerative pancolitis without complication (HCC) 09/17/2024 Orders Only [facility] [address] [place] [address] [place] [address] Pedrito Nails MD 09/17/2024 Telephone [facility] [address] [place] [address] [place] [address] [place] [address] Shellie Boyd, AIDE 09/17/2024 Telephone [facility] [address] [place] [address] [place] [address] [place] [id number] Vandana Conrad 09/12/2024 Telephone [facility] [address] [place] [address] [place] [address] Vandana Conrad Med Management 09/12/2024 Telephone [facility]enter[facility] [address] [place] [address] Medical Office Building [address] [place] [phone] Shellie Boyd, RN 09/09/2024 Orders Only [facility] [address] [place] [address] Rickey Moore, AIDE 09/09/2024 3:30 PM CDT Office Visit [facility] [address] [place] [address] [place] [address] Fransico Silva MD PhD Sarcoidosis of lung 09/04/2024 Telephone [facility] [address] 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 Months Allergies Active Allergy [...] mouth every morning 08/27/19 23 Active omega 3-gmb-rbf-fish oil 350 mg-235 mg- 90 mg-597 mg capsule,delayed release(DR/EC)Shanique cations:hypertrigl yceridemia Take 1 tablet by mouth every morning Active fcoivds-vtji-zqxif -oreg-capryl 100 mg-150 mg- 50 mg-150 mg [...] mouth nightly as needed for anxiety Active cefdinir (OMNICEF) 300 mg capsule Take 1 capsule (300 mg total) by mouth every 12 (twelve) hours 03/15/20 23 Active ALPRAZolam (XANAX) 2 mg tablet Take by mouth nightly as needed 06/16/19 24 Active estradioL (ESTRACE) 0.01 % (0.1 mg/gram) vaginal creamIndications:A trophic Vaginitis associated with Menopause Insert 1 g into the vagina 3 (three) times a week 42.5 g 3 10/25/19 24 Active Additional Information Patient not taking.Reported on 09/19/2024 tiotropium bromide (SPIRIVA RESPIMAT) 2.5 mcg/actuation inhaler Inhale 2 puffs daily 1 each 01/15/20 24 Active ibuprofen (ADVIL,MOTRIN) 600 mg tablet Take 1 tablet (600 mg total) by mouth 3 (three) times a day as needed for pain 04/25/20 24 Active methocarbamoL (ROBAXIN) 750 mg tablet Take 1 tablet (750 mg total) by mouth nightly at bedtime. 04/25/20 24 Active AdderalL 10 mg tablet Take 1 tablet (10 mg total) by mouth daily 08/23/19 25 Active hydroxychloroquine (PLAQUENIL) 200 mg tabletIndications: Connective Tissue Disease TAKE 1 TABLET BY MOUTH DAILY 180 tablet 3 09/05/19 25 Active loperamide (IMODIUM) 2 mg capsule Take 1 capsule (2 mg total) by mouth 4 (four) times a day as needed for diarrhea 360 capsule 1 09/18/19 25 Active Symbicort 160-4.5 mcg/actuation inhaler INHALE 2 PUFF(S) BY MOUTH 2 TIMES A DAY *NEW PRESCRIPTION REQUEST* 30.6 g 11 10/15/19 25 Active budesonide-formote roL (Symbicort) 160-4.5 mcg/actuation inhalerIndications :Acute Asthma Attack,Maintenance Therapy for Asthma Inhale 2 puffs 2 (two) times a day Rinse mouth with water after use. Do not swallow. 30.6 g 3 09/28/19 25 Active albuterol HFA (PROVENTIL HFA,VENTOLIN HFA,PROAIR HFA) 90 mcg/actuation inhalerIndications :Bronchospasm Prevention Inhale 2 puffs every 6 (six) hours as needed for wheezing or shortness of breath 3 each 3 09/28/19 25 Active sodium chloride 0.9% 0.9% parenteral solution 250 mL with vedolizumab 300 mg recon soln 300 mgIndications:Ulce rative Colitis Infuse 300 mg IV every 8 (eight) weeks 10/11/19 25 Active vedolizumab (ENTYVIO) 300 mg recon solnIndications:Ul cerative Colitis Infuse 5 mL (300 mg total) into a venous catheter every 8 (eight) weeks Every 8weeks 5 mL 8 03/14/20 23 025 Discontin ued(Dupli vance order) budesonide-formote roL (Symbicort) 160-4.5 mcg/actuation inhalerIndications :Acute Asthma Attack,Maintenance Therapy for Asthma Inhale 2 puffs 2 (two) times a day Rinse mouth with water after use. Do not swallow. 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 She has some incontinence and abdominal pain but overall much improved from previously. -Continue Entyvio -RTC in 6 months High risk medications (not anticoagulants) long- term use 07/29/2019 Assessment & Plan (03/21/2024 5:08 PM BRAIDING MACHINE OPERATOR): High risk medications: As with all patients [...] deficiency anemia 10/16/2017 Ulcerative colitis 09/21/2017 Overview (10/10/2024): KYear of diagnosis: 2000. Year symptoms began: 2000. Distribution: Left sided (E2). Extraintestinal manifestations: None. Complications: Pouchitis. Prior treatments: 5ASA, Vedo. Current treatment: vedo since 05/2017., Q8 week but levels low 9.6 in September 2019, no ab's. 11/2018 level 13.5, gets infusions with [facility] 10/2019 normal Prior surgeries: J pouch [...] Site not stated, designated hypertrophy papilla vs polyp, biopsy: - Cluster of atypical squamous cell [...] HBV immune status: Non immune Covid vaccine: CRE Secure Assessment & Plan (07/29/2019 12:36 PM CDT): [...] 05/29/2012 Assessment & Plan (04/30/2024 10:50 AM BRAIDING MACHINE OPERATOR): IRVING 2-3 in setting of atrophic inflammation. [...] on file Legal Sex Female 3:28 AM BRAIDING MACHINE OPERATOR Gender Identity Not on file Sexual Orientation Not on file Last Filed Vital Signs Vital Sign Reading Time Taken Comments Blood Pressure 113/67 09/19/2024 4:18 PM CDT Pulse 65 09/19/2024 4:18 PM CDT Temperature 36.3 C (97.4 F) 09/09/2024 3:19 PM CDT Respiratory Rate 16 09/19/2024 4:18 PM CDT Oxygen Saturation 98% 09/19/2024 4:18 PM CDT Inhaled Oxygen Concentration - - Weight 86.2 kg (190 lb) 09/19/2024 4:18 PM CDT Height 165.1 cm (5' 5) 09/19/2024 4:18 PM CDT Body Mass Index 31.62 09/19/2024 4:18 PM CDT Plan of Treatment Not on file Procedures Procedure Name Priority Date/Time Associated Diagnosis Comments CRP (ACUTE PHASE) Routine 09/21/2024 11: 00 AM CDT High risk medications (not anticoagulants) long-term use Ulcerative pancolitis without complication (HCC) COMPREHENSIVE METABOLIC PANEL Routine 09/21/2024 11:00 AM CDT High risk medications (not anticoagulants) long-term use Ulcerative pancolitis without complication (HCC) CBC WITH AUTO DIFFERENTIAL Routine 09/21/2024 11:00 AM CDT High risk medications (not anticoagulants) long-term use Ulcerative pancolitis without complication (HCC) FLEXIBLE SIGMOIDOSCOPY REPORT 07/28/2014 COLONOSCOPY REPORT 09/03/2012 from Last 3 Months or Most Recently Relevant to Health Maintenance Results * CBC with auto differential (09/21/2024 11:00 AM CDT) WBC 7.4 3.8 - 10.8 Thousand/u L [facility] RBC, POC 4.14 3.80 - 5.10 Million/uL [facility] Hgb 12.9 11.7 - 15.5 g/dL [facility] Hct 39.1 35.0 - 45.0 % [facility] MCV 94.4 80.0 - 100.0 fL [facility] MCH 31.2 27.0 - 33.0 pg [facility] MCHC 33.0 32.0 - 36.0 g/dL [facility] Comment: For adults, a slight decrease in the calculated MCHC value (in the range of 30 to 32 g/dL) is most likely not clinically significant; however, it should be interpreted with caution in correlation with other red cell parameters and the patient's clinical condition. Rdw 12.5 11.0 - 15.0 % [facility] Platelets 179 140 - 400 Thousand/u L [facility] MPV 9.7 7.5 - 12.5 fL [facility] Neutrophils, abs 4,536 1,500 - 7,800 cells/uL [facility] Lymphocytes, abs 2,109 850 - 3,900 cells/uL [facility] Monocyte abs 548 200 - 950 cells/uL [facility] Eosinophils, abs 178 15 - 500 cells/uL [facility] Basophils, abs 30 0 - 200 cells/uL [facility] Neutrophils 61.3 % [facility] Lymphocyte pct 28.5 % [facility] Monocytes 7.4 % [facility] Eosinophils 2.4 % [facility] Basophils 0.4 % [facility] Blood 09/21/2024 11:0 0 AM CDT 09/21/2024 11:00 AM CDT Narrative [facility] - 09/22/2024 10:19 AM CDT FASTING:YES FASTING: YES us Pedrito Nails MD LAB BLOOD ORDERABLES Final Result [facility] [address] [place] [phone] * CRP (acute phase) (09/21/2024 11:00 AM CDT) C-RP 4.1 <8.0 mg/L [facility] Blood 09/21/2024 11:0 0 AM CDT 09/21/2024 11:00 AM CDT Narrative [facility] - 09/22/2024 10:19 AM CDT FASTING:YES FASTING: YES us Pedrito Nails MD LAB BLOOD ORDERABLES Final Result [facility] [address] [place] [phone] * (ABNORMAL) Comprehensive metabolic panel (09/21/2024 11:00 AM CDT) Glucose 126(H) 65 - 99 mg/dL [facility] Comment: Fasting reference interval For someone without known diabetes, a glucose value >125 mg/dL indicates that they may have diabetes and this should be confirmed with a follow-up test. BUN 11 7 - 25 mg/dL [facility] Creatinine 0.87 0.50 - 1.05 mg/dL [facility] eGFR 73 > OR = 60 mL/min/1.7 3m2 [facility] BUN/creat ratio SEE NOTE: 6 - 22 (calc) [facility] Comment: Not Reported: BUN and Creatinine are within reference range. Sodium 142 135 - 146 mmol/L [facility] Potassium, pl 4.4 3.5 - 5.3 mmol/L [facility] Chloride 104 98 - 110 mmol/L [facility] CO2 28 20 - 32 mmol/L [facility] Calcium 9.5 8.6 - 10.4 mg/dL [facility] Protein, sr 7.0 6.1 - 8.1 g/dL [facility] Albumin 4.4 3.6 - 5.1 g/dL [facility] GLOBULIN 2.6 1.9 - 3.7 g/dL (calc) [facility] Alb/glob ratio 1.7 1.0 - 2.5 (calc) [facility] Bilirubin, total 0.4 0.2 - 1.2 mg/dL [facility] Alk phos 61 37 - 153 U/L [facility] AST 16 10 - 35 U/L [facility] ALT (SGPT) 13 6 - 29 U/L [facility] Blood 09/21/2024 11:0 0 AM CDT 09/21/2024 11:00 AM CDT Narrative [facility] - 09/22/2024 10:19 AM CDT FASTING:YES FASTING: YES us Pedrito Nails MD LAB BLOOD ORDERABLES Final Result [facility] [address] [place] [address] * FLEXIBLE SIGMOIDOSCOPY REPORT (07/28/2014) Anatomical Region Laterality Modality Other Narrative 07/28/2014 Ordered by an unspecified provider. Historical Provider GI PROCEDURE ORDERABLES F inal Result * COLONOSCOPY REPORT (09/03/2012) Anatomical Region Laterality Modality Other Narrative 09/03/2012 Ordered by an unspecified provider. Historical Provider GI PROCEDURE ORDERABLES F inal Result from Last 3 Months or Most Recently Relevant to Health Maintenance Insurance MEDICARE [facility] [employer] CLAIMS OFFICE HUMAN CHOICE MEDICARE PPO [address] MEDICARE ADVANTAGE [employer] CLAIMS OFFICE HU[employer] CHOICE MEDICARE PPO [facility] MEDICARE ADVANTAGE Advance Directives For more information, please contact: [phone] * Full Code (Latest Code Status on File) Date Activated Date Inactivated Comments 08/30/2022 1:11 PM 08/30/2022 7:08 PM * Full Code Date Activated Date Inactivated Comments 10/05/2020 8:40 AM 10/05/2020 2:34 PM * Full Code Date Activated Date Inactivated Comments 11/05/2018 9:04 AM 11/05/2018 3:07 PM Care Teams Interstate Bus Driver Relationship Specialty Start Date End Date Nitin Matthews MD [address] [place] [address] PCP - General Family Medicine 01/24/19 Kristin Frazier, RN Registered Nurse Pulmonary Disease 06/13/22 Mark Muñoz MD [address] [facility] [phone] [place] [address] Surgeon Colon and Rectal Surgery 12/20/22 Pedrito Nails MD [address] [place] [address] [facility] 12/27/22
--- OUTSIDE RECORDS SUMMARY | 2024-10-24 19:34 | XMS_ITS ---
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 She has some incontinence and abdominal pain but overall much improved from previously. -Continue Entyvio -RTC in 6 months High risk medications (not anticoagulants) long- term use 07/29/2019 Assessment & Plan (03/21/2024 5:08 PM PRODUCT SAFETY COORDINATOR): High risk medications: As with all patients [...] HBV immune status: Non immune Covid vaccine: Pfizer Assessment & Plan (07/29/2019 12:36 PM CDT): [...] 05/29/2012 Assessment & Plan (04/30/2024 10:50 AM PRODUCT SAFETY COORDINATOR): IRVING 2-3 in setting of atrophic inflammation. [...]
--- OUTSIDE RECORDS SUMMARY | 2024-10-24 19:34 | XMS_ITS | Clinical Summary ---
Author Organization [facility] Address [address] [place] [address] Care Team Providers Care Services Manager Name Role Phone Nitin Matthews MD Primary Care Provider [phone] Kristin Frazier RN Unavailable Unavailabl e Mark Muñoz MD Unavailable [phone] Pedrito Nails MD Unavailable [phone] Allergies Active Allergy Reactions Criticality Noted Date [...] mouth every morning 08/27/19 23 Active omega 3-yce-lzh-fish oil 350 mg-235 mg- 90 mg-597 mg capsule,delayed release(DR/EC)Shanique cations:hypertrigl yceridemia Take 1 tablet by mouth every morning Active zaoomvu-dpwh-oosfs -oreg-capryl 100 mg-150 mg- 50 mg-150 mg [...] 10/02/2019 Assessment & Plan (03/21/2024 5:[address] MACHINERY INSPECTOR): 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 She has some incontinence and abdominal pain but overall much improved from previously. -Continue Entyvio -RTC in 6 months High risk medications (not anticoagulants) long- term use 07/29/2019 Assessment & Plan (03/21/2024 5:[address] MACHINERY INSPECTOR): High risk medications: As with all patients [...] any questions regarding new symptom development. Continue [facility] Assessment & Plan (07/29/2019 12:36 PM CDT): [...] anemia 10/16/2017 Ulcerative colitis 09/21/2017 Overview (10/10/2024): Charly of diagnosis: 2000. Year symptoms began: 2000. [...] 05/29/2012 Assessment & Plan (04/30/2024 10:[address] MACHINERY INSPECTOR): IRVING 2-3 in setting of atrophic inflammation. [...] Department Care Team Description 10/10/2024 Orders Only [facility] G[facility] [address] [place] [address] [address]th [place] [address] Pedrito Nails MD 10/08/2024 Orders Only [facility] [address] [place] [address] 12th [place] [address] Pedrito Nails MD High risk medications (not anticoagulants) long-term use (Primary Dx); Ulcerative pancolitis without complication (HCC) 09/27/2024 Orders Only [facility] Pulmonary [address] [place] [address] 8th [place] [address] [place] [address] Fransico Silva MD PhD 09/23/2024 Results Follow-Up [facility] [address] [place] [address] 12th [place] [address] [place] [address] Pedrito Nails MD CBC with auto differential, Comprehensive metabolic panel, CRP (acute phase) 09/20/2024 Telephone [facility] [address] [place] [phone] Vandana Conrad Med Management (Loperamide - New pharmacy?) 09/19/2024 4:20 PM CDT Office Visit [facility] [address] [place] [address] [address] [place] [phone] Pedrito Nails MD High risk medications (not anticoagulants) long-term use; Ulcerative pancolitis without complication (HCC) 09/17/2024 Orders Only [facility] [address] [place] [address] [address] [place] [phone] Pedrtio Nails MD 09/17/2024 Telephone [facility] [address] [place] [address] [address] [place] [phone] Shellie Boyd, RN 09/17/2024 Telephone [facility] [address] [place] [address] [address] [place] [phone] Vandana Conrad 09/12/2024 Telephone [facility] [address] [place] [address] [address] [place] [phone] Vandana Conrad Med Management 09/12/2024 Telephone [facility] [address] [place] [address] Medical Office Building [address] [place] [address] Shellie Boyd RN 09/09/2024 3:30 PM CDT Office Visit [facility] [address] [place] [phone] Fransico Silva MD PhD Sarcoidosis of lung 09/09/2024 Orders Only 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 Never true 03/07/20 25 Within the past 12 months, t [...] on file Legal Sex Female 3:[address] MACHINERY INSPECTOR Gender Identity Not on file Sexual [...] 09/19/2024 4:18 PM CDT Plan of Treatment Health Maintenance Due Date Last Done Comments Breast Cancer Screening-Mammogram 1955 Depression Screening 1955 Hepatitis C Screening 1955 Osteoporosis Screening-Bone Density Scan 1955 DTaP/Tdap/Td Vaccine (1 - Tdap) 11/05/1966 Zoster Vaccine (1 of 2) 11/05/1974 Well Visit 65+ 11/05/2020 Covid-19 Vaccine (3 - Pfizer risk series) 08/30/2021 08/02/2021, 08/29/2020 Colon Cancer Screening-Colonoscopy 09/03/20222012 Fall Risk Assessment 02/14/2024 02/13/2023 Pneumococcal vaccine 65+ (3 of 3 - PPSV23, PCV20 or PCV21) 07/24/2024 07/25/2019, 04/27/2017 Influenza Vaccine (Season Ended) 2025 02/08/2019, 02/08/2019, 04/27/2017 Colon Cancer Screening-CT Colonography Discontinued 07/28/2014, [...] 09/22/2024 10:19 AM CDT FASTING:YES FASTING: YES Pedrito Nails MD LAB BLOOD ORDERABLES Final Result Performing Organization Address City/State/[facility] Co de Phone Number [facility] [address] [place] [address] * CRP (acute phase) (09/21/2024 11:00 AM CDT) C-RP 4.1 <8.0 mg/L [facility] Blood 09/21/2024 11:0 0 AM CDT 09/21/2024 11:00 AM CDT Narrative [facility] - 09/22/2024 10:19 AM CDT FASTING:YES FASTING: YES Pedrito Nails MD LAB BLOOD ORDERABLES Final Result [facility] [address] [place] [id number] * (ABNORMAL) Comprehensive metabolic panel (09/21/2024 11:00 [...] LAB BLOOD ORDERABLES Final Result [facility] [address] [place] [id number] * FLEXIBLE SIGMOIDOSCOPY REPORT (07/28/2014) Anatomical Region Laterality Modality Other Narrative 07/28/2014 Ordered by an unspecified provider. Historical Provider GI PROCEDURE ORDERABLES F inal Result * COLONOSCOPY REPORT (09/03/2012) Anatomical Region Laterality Modality Other Narrative 09/03/2012 Ordered by an unspecified provider. Historical Provider GI PROCEDURE ORDERABLES F inal Result from Last 3 Months or Most Recently Relevant to Health Maintenance Insurance MEDICARE [place] [employer] CLAIMS OFFICE [employer] CHOICE MEDICARE [id number] MEDIC[facility] Address[address] [address] [place] [address] HUMANA CLAIMS OFFICE HUMA[employer] CHOICE MEDICARE PPO [facility] MEDICARE ADVANTAGE [facility] MEDIC[facility] Address: [address] [address] [place] [address] Advance Directives For more information, please contact: [phone] * Full Code (Latest Code Status on File) Date Activated Date Inactivated Comments 08/30/2022 1:11 PM 08/30/2022 7:08 PM * Full Code Date Activated Date Inactivated Comments 10/05/2020 8:40 AM 10/05/2020 2:34 PM * Full Code Date Activated Date Inactivated Comments 11/05/2018 9:04 AM 11/05/2018 3:07 PM Care Teams Services Manager Relationship Specialty Start Date End Date iNtin Matthews MD [address] [place] [id number] PCP - General Family Medicine 01/24/19 Kristin Frazier, RN Registered Nurse Pulmonary Disease 06/13/22 Mark Muñoz MD [phone] [place] [address] Surgeon Colon and Rectal Surgery 12/20/22 Pedrito Nails MD [address] [place] [address] [employer] Receiving Clerk Gastroenterology 12/27/22
--- OUTSIDE RECORDS SUMMARY | 2024-10-24 19:35 | XMS_ITS | Continuity of Care Document ---
Author Organization [facility] Address [address] [place] [address] Phone Care Team Providers Care Silk Brusher Name Role Phone Nitin Matthews MD Unavailable Unavailable Allergies, Adverse Reactions, Alerts Substance Reaction Status Criticality No Known Allergies Active No Inform ation Medications Medication Instructions Dosage Effective Dates (start - stop) Status Comments Xanax 2 mg tablet take 1 tablet by oral route every bedtime as needed 2 MG - Active PRN for anxiety and insomnia, avoid driving or operate machines metformin 500 mg tablet take 1 tablet by oral route 2 times every day with morning and evening meals 500 MG - Active propranolol 40 mg tablet take 1 tablet b y oral route every day 40 MG - Active Zoloft 50 mg tablet take 1 tablet by oral route every day 50 MG - Active omeprazole 20 mg capsule,delayed release take 1 capsule by oral route every day before a meal as needed 20 MG - Active PRN for GERD hydroxychloroquine 200 mg tablet take 1 tablet by oral route 2 times every day 200 MG - Active albuterol sulfate HFA 90 mcg/actuation aerosol inhaler inhale 2 puff by inhalation route every 4 - 6 hours as needed - Active Xhance 93 mcg/actuation breath activated aerosol spray 1 spray by intranasal route 2 times every day in each nostril 93 MCG - Active Entyvio 300 mg intravenous solution infuse (300MG) by intravenous route every 8 weeks over 300 MG - Active Procedures Procedure Date OFFICE/OUTPATIENT VISIT, EST OFFICE/OUTPATIENT VISIT, EST OFFICE/OUTPATIENT VISIT, EST PREV VISIT, EST, 65 & OVER OFFICE/OUTPATIENT VISIT, EST OFFICE/OUTPATIENT VISIT, EST OFFICE/OUTPATIENT VISIT, EST OFFICE/OUTPATIENT VISIT, EST OFFICE/OUTPATIENT VISIT, EST OFFICE/OUTPATIENT VISIT, EST OFFICE/OUTPATIENT VISIT, EST OFFICE/OUTPATIENT VISIT, EST OFFICE/OUTPATIENT VISIT, EST OFFICE/OUTPATIENT VISIT, EST OFFICE/OUTPATIENT VISIT, EST OFFICE/OUTPATIENT VISIT, EST OFFICE/OUTPATIENT VISIT, EST OFFICE/OUTPATIENT VISIT, EST OFFICE/OUTPATIENT VISIT, EST OFFICE/OUTPATIENT VISIT, EST OFFICE/OUTPATIENT VISIT, EST OFFICE/OUTPATIENT VISIT, EST OFFICE/OUTPATIENT VISIT, EST OFFICE/OUTPATIENT VISIT, EST OFFICE/OUTPATIENT VISIT, EST OFFICE/OUTPATIENT VISIT, EST OFFICE/OUTPATIENT VISIT, EST PREV VISIT, EST, 65 & OVER OFFICE/OUTPATIENT VISIT, EST OFFICE/OUTPATIENT VISIT, EST OFFICE/OUTPATIENT VISIT, EST OFFICE/OUTPATIENT VISIT, EST OFFICE/OUTPATIENT VISIT, EST OFFICE/OUTPATIENT VISIT, EST OFFICE/OUTPATIENT VISIT, EST OFFICE/OUTPATIENT VISIT, EST OFFICE/OUTPATIENT VISIT, EST OFFICE/OUTPATIENT VISIT, EST OFFICE/OUTPATIENT VISIT, EST OFFICE/OUTPATIENT VISIT, EST OFFICE/OUTPATIENT VISIT, EST OFFICE/OUTPATIENT VISIT, EST PREV VISIT, EST, 65 & OVER OFFICE/OUTPATIENT VISIT, EST OFFICE/OUTPATIENT VISIT, EST OFFICE/OUTPATIENT VISIT, EST OFFICE/OUTPATIENT VISIT, EST OFFICE/OUTPATIENT VISIT, EST OFFICE/OUTPATIENT VISIT, EST OFFICE/OUTPATIENT VISIT, EST PREV VISIT, EST, AGE 40-64 OFFICE/OUTPATIENT VISIT, EST OFFICE/OUTPATIENT VISIT, EST PREV VISIT, EST, AGE 40-64 OFFICE/OUTPATIENT VISIT, EST OFFICE/OUTPATIENT VISIT, EST PPPS, initial visit OFFICE/OUTPATIENT VISIT, NEW Advance Directives Directive Yes / No Effective Date File Name No Information Encounters Encounter Description Practice Location Reason(s) For Visit Diagnoses Date Provider Providers Copied on Encounter OFFICE/OUTPA TIENT VISIT, [facility], [address] [place], [place], [address], tel:[phone] [facility] DM (chief complaint) anxiety1 (chief complaint) Type 2 diabetes mellitus without complicationsGenera lized Anxiety Disorder 5 Byron Vieira [address] [place], [address] , [place]. tel:[phone] OFFICE/OUTPA TIENT VISIT, [facility], [address] [place], [address], tel:[phone] [facility] glucose (chief complaint) b12 (chief complaint) phos1 (chief complaint) anxiety1 (chief complaint) memory loss1 (chief complaint) HyperglycemiaOther disorders of phosphorus metabolismOther specified abnormal findings of blood chemistryAttention deficitGeneralized Anxiety Disorder 5 Byron Vieira [address] [place], [address] , [place]. [phone] OFFICE/OUTPA TIENT VISIT, [facility], [address] [place], [address], tel:[phone] [facility] anxiety1 (chief complaint) memory loss1 (chief complaint) ADD (chief complaint) Memory lossGeneralized Anxiety DisorderAttention deficit Aug- 0 5 Byron Vieira [address], [place], [place], [address] , [place]. tel:[phone] PREV VISIT, EST, 65 & OVER [facility], [address], [place], [place], [address], [place] tel:[phone] [facility] physical (chief complaint) Encounter for general adult medical exam w abnormal findingsEssential (primary) hypertensionGeneral ized Anxiety DisorderGERD w/o esophagitisSarcoido sis of lungUlcerative colitis without complicationHypergl ycemiaMixed hyperlipidemia 5 Byron Vieira [address], [address], [place], [place], [address] , [place]. tel: [phone] OFFICE/OUTPA TIENT VISIT, [facility], [address], [place], [place], [address], [place] tel:[phone] [facility] sinus (chief complaint) Acute sinusitis Jun- 5 Byron Vieira [address], [address], [place], [place], [address] , [place]. tel:[phone] OFFICE/OUTPA TIENT VISIT, [facility], [address], [place], [place], [address], [place] tel:[phone] [facility] anxiety1 (chief complaint) GERD1 (chief complaint) GERD w/o esophagitisGenerali zed Anxiety Disorder 5 Byron Vieira [address], [address], [place], [place], [address] , [place]. tel: [phone] OFFICE/OUTPA TIENT VISIT, [facility], [address], [place], [place], [address], [place] tel:[phone] [facility] anxiety1 (chief complaint) HTN (chief complaint) UC (chief complaint) sarcoid1 (chief complaint) Generalized Anxiety DisorderEssential (primary) hypertensionUlcerat too colitis without complicationSarcoid osis of lung 5 Byron Taveras. [address], [address], [place], [place], [address] , [place]. tel:[phone] OFFICE/OUTPA TIENT VISIT, [facility], [address], [place], [place], [address], [place] tel:[phone] [facility] anxiety1 (chief complaint) Generalized Anxiety Disorder 4 Byron Taveras. [address], [address], [place], [place], [address] , [place]. tel:[phone] OFFICE/OUTPA TIENT VISIT, [facility], [address], [place], [place], [address], [place] tel:[phone] [facility] anxiety1 (chief complaint) Generalized Anxiety Disorder 4 Byron Vieira [address], [address], [place], [place], [address] , [place]. tel:[phone] OFFICE/OUTPA TIENT VISIT, [facility], [address], [place], [place], [address], [place] tel:[phone] [facility] anxiety1 (chief complaint) GERD1 (chief complaint) GERD w/o esophagitisGenerali zed Anxiety DisorderEncounter for oth screening for malignant neoplasm of breast 4 Byron Vieira [address], [address], [place], [place], [address] , [place]. tel:[phone] OFFICE/OUTPA TIENT VISIT, [facility], [address], [place], [place], [address], [place] tel:[phone] [facility] anxiety1 (chief complaint) Generalized Anxiety Disorder 4 Byron Taveras. [address], [address], [place], [place], [address] , [place]. tel:[phone] OFFICE/OUTPA TIENT VISIT, [facility], [address], [place], [place], [address], [place] tel:[phone] [facility] anxiety1 (chief complaint) anxiety1 (chief complaint) tremor1 (chief complaint) Generalized Anxiety DisorderTremorGERD w/o esophagitis 4 Byron Vieira [address], [place], [place], [address] , [place]. tel:[phone] OFFICE/OUTPA TIENT VISIT, [facility], [address], [place], [place], [address], [place] tel:[phone] [facility] anxiety1 (chief complaint) weight loss1 (chief complaint) Abnormal weight lossGeneralized Anxiety Disorder 4 Byron Vieira [address], [address], [place], [place], [address] , [place]. tel:[phone] OFFICE/OUTPA TIENT VISIT, [facility], [address], [place], [place], [address], [place] tel:[phone] [facility] anxiety1 (chief complaint) arm pain1 (chief complaint) Generalized Anxiety DisorderPain in left arm 4 Byron Vieira [address], [place], [place], [address] , [place]. tel:[phone] OFFICE/OUTPA TIENT VISIT, [facility], [address], [place], [place], [address], [place] tel:[phone] [facility] anxiety1 (chief complaint) bicep pain1 (chief complaint) Pain in left armLocalized swelling, mass and lump, left upper limbGeneralized Anxiety Disorder 4 Byron Vieira [address], [address], [place], [place], [address] , [place]. tel:[phone] OFFICE/OUTPA TIENT VISIT, [facility], [address], [place], [place], [address], [place] tel:[phone] [facility] anxiety1 (chief complaint) Generalized Anxiety Disorder 4 Matthews Nitin. [address], [address], [place], [place], [address] , [place]. tel:[phone] OFFICE/OUTPA TIENT VISIT, [facility], [address], [place], [place], [address], [place] tel:[phone] [facility] anxiety1 (chief complaint) Generalized Anxiety Disorder Aug- 4 Byron Taveras. [address], [address], [place], [place], [address] , [place]. tel:[phone] OFFICE/OUTPA TIENT VISIT, [facility], [address], [place], [place], [address], [place] tel:[phone] [facility] anxiety1 (chief complaint) HTN (chief complaint) Generalized Anxiety DisorderEssential (primary) hypertension Jul- 4 Byron Taveras. [address], [place], [place], [address] , [place]. tel:[phone] OFFICE/OUTPA TIENT VISIT, [facility], [address], [place], [place], [address], [place] tel:[phone] [facility] anxiety1 (chief complaint) Generalized Anxiety DisorderPrimary insomnia 4 Byron Taveras. [address], [place], [place], [address] , [place]. tel:[phone] OFFICE/OUTPA TIENT VISIT, [facility], [address], [place], [place], [address], [place] tel:[phone] [facility] anxiety1 (chief complaint) tremor1 (chief complaint) insomnia1 (chief complaint) weight gain1 (chief complaint) GERD1 (chief complaint) GERD w/o esophagitisGenerali zed Anxiety DisorderTremorPrima ry insomniaAbnormal weight gain 4 Byron Taveras. [address], [place], [place], [address] , [place]. tel:[phone] OFFICE/OUTPA TIENT VISIT, [facility], [address], [place], [place], [address], [place] tel:[phone] [facility] anxiety1 (chief complaint) tremor1 (chief complaint) TremorGeneralized Anxiety Disorder 3 Byron Vieira [address], [place], [place], [address] , [place]. tel:[phone] OFFICE/OUTPA TIENT VISIT, [facility], [address], [place], [place], [address], [place] [phone] [facility] anxiety1 (chief complaint) sinus1 (chief complaint) Acute sinusitisGeneralize d Anxiety Disorder 3 Byron Vieira [address], [place], [place], [address] , [place]. tel:[phone] OFFICE/OUTPA TIENT VISIT, [facility], [address], [place], [place], [address], [place] [phone] [facility] anxiety1 (chief complaint) weight gain1 (chief complaint) Generalized Anxiety DisorderTremorAbnor mal weight gain 3 Byron Vieira [address], [address], [place], [place], [address] , [place]. tel:[phone] OFFICE/OUTPA TIENT VISIT, [facility], [address] [place], [address], [place] [phone] [facility] insomnia1 (chief complaint) DM (chief complaint) GERd1 (chief complaint) fibromyalg ia1 (chief complaint) FibromyalgiaGERD w/o esophagitisGenerali zed Anxiety DisorderMetabolic syndromeOther specified disorder of bone densityInconclusive mammogram 3 Byron Vieira [address], [address], [place], [place], [address] , [place]. tel:[phone] OFFICE/OUTPA TIENT VISIT, [facility], [address], [place], [place], [address], [place] tel:[phone] [facility] glucose1 (chief complaint) pain (chief complaint) GERD1 (chief complaint) GERD w/o esophagitisType 2 diabetes mellitus without complicationsOther ulcerative colitis without complicationsFibrom yalgia 3 Byron Vieira [address], [place], [place], [address] , [place]. tel:[phone] OFFICE/OUTPA TIENT VISIT, EST [facility], [address], [place], [place], [address], [place] tel:[phone] [facility] insomnia1 (chief complaint) HLP (chief complaint) glucose1 (chief complaint) pain (chief complaint) GERD1 (chief complaint) GERD w/o esophagitisMixed hyperlipidemiaType 2 diabetes mellitus without complicationsGenera lized Anxiety DisorderFibromyalgi a 3 Byron Vieira [address], [place], [place], [address] , [place]. tel:[phone] Referring Provider: Dwayne Wyman [address], [place], [place], [address]. tel:[phone] PREV VISIT, EST, 65 & OVER [facility], [address], [place], [place], [address], [place] tel:[phone] [facility] physical (chief complaint) Encounter for general adult medical exam w abnormal findingsMixed hyperlipidemiaType 2 diabetes mellitus without complicationsOther disorders of phosphorus metabolismGERD w/o esophagitisPrimary insomniaOther ulcerative colitis without complications 3 Byron Vieira [address], [place], [place], [address] , [place]. tel:[phone] Referring Provider: Dwayne W[address], [place], [place], [address]. tel:[phone] OFFICE/OUTPA TIENT VISIT, EST [facility], [address], [place], [place], [address], [place] tel:[phone] [facility] DM (chief complaint) Type 2 diabetes mellitus without complications 3 Byron Vieira [address], [address], [place], [place], [address] , [place]. tel:[phone] Referring Provider: Dwayne Wyman [address], [place], [place], [address]. tel:[phone] OFFICE/OUTPA TIENT VISIT, [facility], [address], [place], [place], [address], [place] tel:[phone] [facility] insomnia1 (chief complaint) GERD1 (chief complaint) DM (chief complaint) GERD w/o esophagitisType 2 diabetes mellitus without complicationsAbnorm al weight gainPrimary insomnia 3 Byron Taveras. [address], [place], [place], [address] , [place]. tel:[phone] Referring Provider: Dwayne Wyman [address], [place], [place], [address]. tel:[phone] OFFICE/OUTPA TIENT VISIT, [facility], [address], [place], [place], [address], [place] tel:[phone] [facility] DM (chief complaint) Type 2 diabetes mellitus without complicationsAbnorm al weight gain 3 Byron Taveras. [address], [place], [place], [address] , [place]. tel:[phone] Referring Provider: Dwayne Wyman [address], [place], [place], [address]. tel:[phone] OFFICE/OUTPA TIENT VISIT, [facility], [address], [place], [place], [address], [place] tel:[phone] [facility] DM (chief complaint) Type 2 diabetes mellitus without complications 2 Byron Taveras. [address], [address], [place], [place], [address] , [place]. tel:[phone] Referring Provider: Nitin Matthews [address], [place], [place], [address]. tel:[phone] OFFICE/OUTPA TIENT VISIT, [facility], [address], [place], [place], [address], [place] tel:[phone] [facility] DM (chief complaint) Type 2 diabetes mellitus without complicationsAbnorm al weight loss 2 Byron Taveras. [address], [address], [place], [place], [address] , [place]. tel:[phone] Referring Provider: Dwayne Wyman [address], [place], [place], [address]. tel:[phone] OFFICE/OUTPA TIENT VISIT, [facility], [address], [place], [place], [address], [place] tel:[phone] [facility] DM (chief complaint) Type 2 diabetes mellitus without complicationsAbnorm al weight gain 0- 2 Byron Taveras. [address], [place], [place], [address] , [place]. tel:[phone] Referring Provider: Dwayne Wyman [address], [place], [place], [address]. tel:[phone] OFFICE/OUTPA TIENT VISIT, [facility], [address], [place], [place], [address], [place] tel:[phone] [facility] DM (chief complaint) Type 2 diabetes mellitus without complicationsAbnorm al weight gain 2 Byron Taveras. [address], [place], [place], [address] , [place]. tel:[phone] Referring Provider: Nitin Matthews [address], [place], [place], [address]. tel:[phone] OFFICE/OUTPA TIENT VISIT, [facility], [address], [place], [place], [address], [place] tel:[phone] [facility] insomnia1 (chief complaint) Primary insomniaGeneralized Anxiety Disorder 2 Byron Taveras. [address], [place], [place], [address] , [place]. tel:[phone] Referring Provider: Nitin Matthews, [address], [place], [place], [address]. tel:[phone] OFFICE/OUTPA TIENT VISIT, [facility], [address], [place], [place], [address], [place] tel:[phone] [facility] insomnia1 (chief complaint) Primary insomnia Jan- 2 Byron Taveras. [address], [address], [place], [place], [address] , [place]. tel:[phone] Referring Provider: Nitin Matthews, [address], [place], [place], [address]. tel:[phone] OFFICE/OUTPA TIENT VISIT, [facility], [address], [place], [place], [address], [place] tel:[phone] [facility] insomnia1 (chief complaint) Primary insomnia Jan- 2 Byron Taveras. [address], [address], [place], [place], [address] , [place]. tel:[phone] Referring Provider: Nitin Matthews, [address], [place], [place], [address]. tel:[phone] OFFICE/OUTPA TIENT VISIT, [facility], [address], [place], [place], [address], [place] tel:[phone] [facility] insomnia1 (chief complaint) Primary insomniaGeneralized Anxiety Disorder 2 Byron Taveras. [address], [address], [place], [place], [address] , [place]. tel:[phone] Referring Provider: Nitin Matthews, [address], [place], [place], [address]. tel:[phone] OFFICE/OUTPA TIENT VISIT, [facility], [address], [place], [place], [address], [place] tel:[phone] [facility] HLP (chief complaint) phos1 (chief complaint) glucose1 (chief complaint) Mixed hyperlipidemiaHyper glycemiaOther disorders of phosphorus metabolism 2 Byron Taveras. [address], [place], [place], [address] , [place]. tel:[phone] Referring Provider: Dwayne Wyman [address], [place], [place], [address]. tel:[phone] OFFICE/OUTPA TIENT VISIT, EST [facility], [address], [place], [place], [address], [place] tel:[phone] [facility] insomnia1 (chief complaint) nail1 (chief complaint) GERD1 (chief complaint) Nail dystrophyInsomniaOt her disorders of phosphorus metabolismGERD w/o esophagitis 2 Byron Vieira [address], [place], [place], [address] , [place]. tel:[phone] Referring Provider: Dwayne Wyman [address], [place], [place], [address]. tel:[phone] PREV VISIT, EST, 65 & OVER [facility], [address], [place], [place], [address], [place] tel:[phone] [facility] physical (chief complaint) AlopeciaGeneralized Anxiety DisorderInsomniaOth er disorders of phosphorus metabolismEncounter for general adult medical exam w abnormal findings 2 Byron Vieira [address], [address], [place], [place], [address] , [place]. tel:[phone] Referring Provider: Dwayne Wyman [address], [place], [place], [address]. tel:[phone] OFFICE/OUTPA TIENT VISIT, EST [facility], [address], [place], [place], [address], [place] tel:[phone] [facility] alopecia1 (chief complaint) anxiety1 (chief complaint) HTN (chief complaint) GERD1 (chief complaint) AlopeciaGERD w/o esophagitisGenerali zed Anxiety DisorderEssential (primary) hypertension 1 Byron Vieira [address], [address], [place], [place], [address] , [place]. tel:[phone] Referring Provider: Nitin Matthews, [address], [place], [place], [address]. tel:[phone] OFFICE/OUTPA TIENT VISIT, [facility], [address], [place], [place], [address], [place] tel:[phone] [facility] insomnia1 (chief complaint) GERD1 (chief complaint) InsomniaGERD w/o esophagitisNocturna l polyuria 1 Byron Taveras. [address], [place], [place], [address] , [place]. tel:[phone] Referring Provider: Nitin Matthews, [address], [place], [place], [address]. tel:[phone] OFFICE/OUTPA TIENT VISIT, [facility], [address], [place], [place], [address], [place] tel:[phone] [facility] cataract1 (chief complaint) Cataract in diseases classified elsewhere 1 Byron Taveras. [address], [place], [place], [address] , [place]. tel:[phone] Referring Provider: Nitin Matthews, [address], [place], [place], [address]. tel:[phone] OFFICE/OUTPA TIENT VISIT, [facility], [address], [place], [place], [address], [place] tel:[phone] [facility] insomnia1 (chief complaint) Insomnia 1 Byron Taveras. [address], [address], [place], [place], [address] , [place]. tel:[phone] Referring Provider: Nitin Matthews, [address], [place], [place], [address]. tel:[phone] OFFICE/OUTPA TIENT VISIT, [facility], [address], [place], [place], [address], [place] tel:[phone] [facility] insomnia1 (chief complaint) GERD1 (chief complaint) cough1 (chief complaint) InsomniaGERD w/o esophagitisAcute bronchitisUlcerativ e colitis without complication 1 Byron Taveras. [address], [place], [place], [address] , [place]. tel:[phone] Referring Provider: Nitin Matthews, [address], [place], [place], [address]. tel:[phone] [facility], [address], [place], [place], [address], [place] tel:[phone] [facility] Inconclusive mammogram 1 Byron Taveras. [address], [place], [place], [address] , [place]. tel:[phone] Referring Provider: Dwayne Wyman [address], [place], [place], [address]. tel:[phone] OFFICE/OUTPA TIENT VISIT, EST [facility], [address], [place], [place], [address], [place] tel:[phone] [facility] Medicine gout1 (chief complaint) glucose1 (chief complaint) insomnia1 (chief complaint) InsomniaGoutHypergl ycemia 1 Byron Taveras. [address], [place], [place], [address] , [place]. tel:[phone] Referring Provider: Dwayne Wyman [address], [place], [place], [address]. tel:[phone] PREV VISIT, EST, AGE 40-64 [facility], [address], [place], [place], [address], [place] tel:[phone] [facility] Medicine physical (chief complaint) Encounter for general adult medical examination without abnormal findings 1 Byron Taveras. [address], [place], [place], [address] , [place]. tel:[phone] Referring Provider: Dwayne Wyman [address], [place], [place], [address]. tel:[phone] OFFICE/OUTPA TIENT VISIT, EST [facility], [address], [place], [place], [address], [place] tel:[phone] [facility] sarcoidosi s1 (chief complaint) gout (chief complaint) ankle pain1 (chief complaint) insomani1 (chief complaint) GERD w/o esophagitisSarcoido sis of lungGoutInsomnia 0 Byron Taveras. [address], [place], [place], [address] , [place]. tel:[phone] Referring Provider: Dwayne Wyman [address], [place], [place], [address]. tel:[phone] OFFICE/OUTPA TIENT VISIT, EST [facility], [address], [place], [place], [id number], [place] tel:[phone] [facility] insomnia1 (chief complaint) sick (chief complaint) dry skin (chief complaint) GERD1 (chief complaint) InsomniaAcute bronchitisSarcoidos is of skinGERD w/o esophagitis 0 Byron Taveras. [address], [place], [place], [address] , [place]. tel:[phone] Referring Provider: Dwayne Wyman [address], [place], [place], [address]. tel:[phone] PREV VISIT, EST, AGE 40-64 [facility], [address], [place], [place], [id number], [place] tel:[phone] [facility] PHysical (chief complaint) Encntr for general adult medical exam w/o abnormal findings 0 Byron Taveras. [address], [address], [place], [place], [address] , [place]. tel:[phone] Referring Provider: Dwayne Wyman [address], [place], [place], [address]. tel:[phone] OFFICE/OUTPA TIENT VISIT, EST [facility], [address], [place], [place], [address], [place] [phone] [facility] Sarcoid1 (chief complaint) insomnia1 (chief complaint) GERD1 (chief complaint) ferritin (chief complaint) InsomniaDisorder of iron metabolism, unspecifiedGERD w/o esophagitisSarcoido sis of lungRenal disease 9 Byron Taveras. [address], [place], [place], [address] , [place]. [phone] Referring Provider: Dwayne Wyman [address], [place], [place], [address]. tel:[phone] OFFICE/OUTPA TIENT VISIT, [facility], [address], [place], [place], [address], [place] tel:[phone] [facility] glucose (chief complaint) GERD1 (chief complaint) HLP (chief complaint) ferritin (chief complaint) renal (chief complaint) insomnia1 (chief complaint) Disorder of iron metabolism, unspecifiedInsomnia HyperglycemiaHyperl ipidemiaRenal diseaseGERD w/o esophagitis 9 Byron Taveras. [address], [place], [place], [address] , [place]. [phone] Referring Provider: Dwayne Wyman [address], [place], [place], [address]. tel:[phone] OFFICE/OUTPA TIENT VISIT, [facility], [facility] [address] [place], [address], [place] [phone] [facility] physical (chief complaint) Encounter for general adult medical exam w abnormal findingsUlcerative colitis, unspecified, without complicationsInsomn iaGERD w/o esophagitisPulmonar y candidiasis 0 9 Byron Taveras. [address], [place], [place], [address] , [place]. [phone] Referring Provider: Dwayne W[address], [place], [place], [address]. tel:[phone] Family History Family Member Type Diagnosis Age At Onset Brother Problem (finding) Stroke Brother Problem (finding) CVA, HTN, on the operating table (Cause Of ) 55 Mother Problem (finding) of leukemia 55 Mother Problem (finding) Stroke 55 Brother Problem (finding) Hypertension Father Problem (finding) mesothelioma (Caus e Of ) 55 Payers Payer name Insurance type Covered constitution party ID Mejia valencia(s) [facility] [id number] Social History Type Description Quantity Date Captured Comments Alcohol Use Details No Caffeine Use Details Unknown Tobacco Use Status Current non-smoker Smoking Status Never smoker Sex Female Vital Signs Date / Time: Height Weight BMI Pulse Rate Blood Pressure Temperature Respiratory Rate Body Surface Area Head Circumference BMI percentile Pulse Ox Inhaled Ox 12:34 PM 65.00 in 183.60 lbs 30.5 5 kg/m eter (2) 57 /min 120/70 mm[Hg] 97.6 F 16 /min Chief Complaint And Reason For Visit From encounter dated '10/23/2024 12:18'. DM (chief complaint). Description: Pt has borderline DM Pt started metformin last month and she tolerated it ok Pt lost some weight. Pt denies any GI symptoms anxiety1 (chief complaint). Description: Pt has chronic anxiety and depression. pt doing well with zoloft and xanax PRn Pt denies any suicidal or homicidal thought Pt denies any crying spells Plan Of Treatment Date Type Action Status Goal Special diet education compl eted Goal Special diet education compl eted Goal Special diet education compl eted Referral Ordered: US SOFT TISSUE CHEST ordered Referral Ordered: OPERATIVE UPPER GI ENDOSCOPY ordered Referral Ordered: MAMMOGRAM, ONE BREAST ordered Referral Ordered: SLEEP STUDY, ATTENDED ordered Referral Ordered: US EXAM, ABDOM, COMPLETE ordered Referral Ordered: MAMMOGRAM, SCREENING ordered Referral Ordered: DXA BONE DENSITY, AXIAL ordered Appointment Eve Hunter BOOKED History Of Present Illness Encounter Date Complaint History Of Prese nt Illness anxiety1 Pt has chronic a nxiety and depression. pt doing well with zoloft and xanax PRn Pt denies any suicidal or homicidal thought Pt denies any crying spells DM Pt has borderlin e DM Pt started metformin last month and she tolerated it ok Pt lost some weight. Pt denies any GI symptoms glucose pt has mildly hi gh glucose and high A1c. Pt denies any polyuria, polydipsia b12 Pt has high b12 pt does take b12 supplement phos1 Pt has borderlin e high phos anxiety1 Pt has chronic a nxiety and depression. pt doing well with zoloft and xanax PRn Pt denies any suicidal or homicidal thought Pt denies any crying spells memory loss1 Pt notices some short term memory loss with cogitative decline. Pt tried adderall but did not help. Pt denies any headache ADD Pt has been havi ng attention deficit with short term memory loss. pt has difficulty keeping up with daily routines. Pt feels cloudy brained . memory loss1 Pt c/o mild cogi tative decline recently with short term memory loss. Pt has been forgetting things Pt denies any mental status change Pt denies any dizziness or poor balance or headache . anxiety1 Pt has chronic a nxiety and depression Pt takes zoloft and xanax PRN and doing ok. Pt denies any suicidal or homicidal thought Pt denies any crying spells. physical Pt needs annual physical pt has chronic anxiety and depression . Pt takes zoloft and xanax PRn and doing well Pt denies any suicidal or homicidal thought .Pt tran any crying spells Pt has HTn Pt takes propranolol. Pt has chronic GERD Pt takes omeprazole and doing ok. Pt has sarcoidosis. Pt sees pulmonary and she is on plaquenil. Pt has UC. Pt sees GI. Pt is on entyvio. Pt denies any GI issue . sinus Pt c/o acute ons et of sinus pain, postnasal drainage, sore throat, mild cough for one week. Pt denies any fever or sob anxiety1 Pt has chronic a nxiety and depression Pt takes zoloft and xanax prn and doing ok Pt denies any suicidal or homicidal thought Pt denies any crying spells . GERD1 Pt has chronic G ERD Pt takes omeprazole and doing ok Pt denies any GERD or abd pain anxiety1 Pt has chronic a nxiety and depression. Pt takes zoloft and xanax PRN and doing ok Pt denies any suicidal or homicidal thought .Pt denies any crying spells . HTN Pt has HTN. Pt t akes propranolol and her bp is stable UC Pt has UC Pt is on entyvio and she sees GI and she had negative EGD and colonoscopy 2022 Pt doing ok sarcoid1 Pt has pulmonary sarcoidosis. Pt is on Plaquenil. Pt denies any sob or cough anxiety1 Pt has chronic a nxiety and depression. Pt takes zoloft and xanax PRN and doing ok Pt denies any suicidal or homicidal thought .Pt denies any crying spells . anxiety1 Pt has chronic a nxiety and depression Pt takes zoloft and xanax PRn and doing ok. Pt denies any suicidal or homicidal thought Pt denies any crying spells GERD1 Pt has chronic G ERD Pt takes omeprazole and doing ok Pt only has been taking it PRN. Pt has been trying to avoid spicy and fatty meal. anxiety1 Pt has chronic a nxiety and depression Pt takes zoloft and xanax PRn and doing ok. Pt denies any suicidal or homicidal thought Pt denies any crying spells anxiety1 Pt has chronic a nxiety and depression Pt takes zoloft and xanax PRn and doing ok Pt denies any suicidal or homicidal thought Pt denies any crying spells tremor1 Pt has mild esse ntial tremor Pt is on propranolol and her tremor is well controlled anxiety1 Pt has chronic a nxiety and depression Pt takes zoloft and xanax PRn and doing ok Pt denies any suicidal or homicidal thought Pt denies any crying spells anxiety1 pt has chronic G ERD Pt takes omeprazole and doing ok Pt failed pepcid. Pt had benign EGD anxiety1 Pt has chronic a nxiety and depression Pt takes zoloft and xanax PRN and doing ok pt denies any suicidal or homicidal thought Pt denies any crying spells. weight loss1 Pt has been inte ntionally losing weight. pt does have UC Pt had negative endoscopy. pt denies any appetite loss, nausea, vomiting arm pain1 Pt c/o left uppe r arm pain and a palpable mass for several months. Pt denies any injury Pt denies any neck pain with radiculopathy pt denies any numbness or tingling Pt states that she has difficulty move her left arm due to left upper arm pain. Pt denies any redness or warmth or drainage. Pt c/o dull ache all the time, worse with movement. Pt attributes to left upper arm pain due to a soft subcutaneous mass, which resolved since last month Pt currently no longer has any left upper arm pain. Pt did not do ultrasound anxiety1 Pt has chronic a nxiety and depression Pt takes zoloft and xanax PRN and doing ok pt denies any suicidal or homicidal thought Pt denies any crying spells anxiety1 Pt has chronic a nxiety and depression Pt takes zoloft and xanax PRN and doing ok pt denies any suicidal or homicidal thought Pt denies any crying spells bicep pain1 Pt c/o left uppe r arm pain and a palpable mass for two months. Pt denies any injury Pt denies any neck pain with radiculopathy pt denies any numbness or tingling Pt states that she has difficulty move her left arm due to left upper arm pain. Pt denies any redness or warmth or drainage. Pt c/o dull ache all the time, worse with movement anxiety1 Pt has chronic a nxiety and depression Pt takes zoloft and xanax PRn and doing ok Pt denies any suicidal or homicidal thought Pt denies any crying spells anxiety1 Pt has chronic a nxiety and depression Pt has insomnia due to anxiety Pt takes zoloft and xanax PRN and doing ok Pt denies any suicidal or homicidal thought Pt denies any crying spells. anxiety1 Pt has chronic a nxiety and depression Pt has insomnia due to anxiety Pt takes zoloft and xanax PRN and doing ok Pt denies any suicidal or homicidal thought Pt denies any crying spells. HTN Pt has HTN and a nxiety Pt takes propranolol and is doing ok, her bp is ok Pt denies any dizziness, sob or chest pain anxiety1 Pt has chronic a nxiety and depression with insomnia Pt doing very well with zoloft and xanax qhs PRN Pt feels happy now with less worrying. Pt denies any suicidal or homicidal thought Pt denies any crying spells. GERD1 Pt has chronic G ERD Pt doing ok with omeprazole Pt had benign EGD Pt failed pepcid. Pt has daily GERD without omeprazole anxiety1 Pt has chronic a nxiety and depression Pt denies any suicidal or homicidal thought Pt denies any crying spells pt doing very well with zoloft and she feels very calm and she has better mood now. Pt denies any side effects. pt is very happy with zoloft. tremor1 Pt has mild esse ntial tremor, which is well controlled with propranolol Pt also states that her anxiety is also better controlled with propranolol Pt denies any headache insomnia1 Pt has chronic i nsomnia Pt takes xanax qhs which used to work well . weight gain1 Pt has been gain ing weight Pt states that she is at peace with herself and she is not concerned about her weight at this time Pt feels happy tremor1 pt has mild esse ntial tremor. Pt has been taking propranolol and the tremor resolved. She feels very calm and overall happy pt denies any headache. anxiety1 Pt has chronic a nxiety and depression and insomnia Pt is on zoloft and xanax qhs PRn and doing great Pt denies any suicidal or homicidal thought pt denies any crying spells Pt is very happy with zoloft and xanax anxiety1 Pt has chronic a nxiety and depression and insomnia Pt states that zoloft and xanax are working very well. Pt denies any suicidal or homicidal thought Pt denies any crying spells. Pt states that she can sleep for solid 4-5 hours with xanax at night. Her mood is also much better with zoloft. Pt denies any side effects . sinus1 Pt c/o acute sin us pain and pressure for 2-3 days Pt has postnasal drainage Pt denies any sore throat pt denies any fever, chill Pt denies any ear pain. Pt denies any cough. Pt denies any sob anxiety1 Pt has been carmenza costello severe stress and anxiety and she feels depressed recently. pt has a lot of medical issue going on and she feels very stressed and anxious and she feels shaky inside of her body and both hand for a while Pt rarely drinks alcohol Pt just feels very anxious and she does not thinks ativan work anymore. pt denies any suicidal or homicidal thought. Pt denies any crying spells weight gain1 Pt has been irvin rizo and she has not lost any weight. She actually gained some weight fibromyalgia1 Pt has fibromyal theo and some joint pain Pt does have UC. pt takes mobic PRN which works well insomnia1 Pt has anxiety a nd insomnia Pt doing ok with ativan qhs pt needs refill Pt denies any depression or any suicidal or homicidal thought Pt denies any crying spells DM Pt has borderlin e insulin resistance. Pt takes rybelsus Pt denies any GI symptoms .Pt has not been checking her glucose. Pt has not been losing weight. Pt states that she has been eating poorly GERd1 Pt has chronic G ERD Pt had benign eGD Pt has daily GERD without omeprazole Pt failed pepcid GERD1 Pt has chronic G ERD Pt takes omeprazole daily Pt had benign EGD recently Pt denies any abd pain Pt also has UC Pt underwent pouchoscopy recently which was ok. pain Pt c/o some nons pecific muscle pain around back and leg area for several months. Pt denies any joint pain. Pt denies any injury, Pt denies any joint swelling, redness or warmth Pt states that mobic does help. Pt has been taking it PRN. Pt denies any sciatica or any loss of bowel or bladder control or saddle area paresthesia. glucose1 Pt has borderlin e high a1c. Pt is on rybelsus daily and doing ok Pt denies any hypoglycemia Pt states that her glucose is around 100 or less at home. Pt denies any GI side effects Pt has been losing some weight Pt denies any Gi side effects pain Pt c/o diffuse m uscle pain including upper back, arm, central leg for several weeks. Pt denies any joint pain. Pt denies any injury, Pt denies any joint swelling, redness or warmth GERD1 pt has chronic G ERD. Pt takes omeprazole daily and doing ok Pt denies any nausea, vomiting, abd pain insomnia1 Pt has insomnia Pt takes ativan qhs and doing ok Pt denies any depression. HLP Pt has borderlin e HLP glucose1 Pt has borderlin e high a1c. Pt is on rybelsus daily and doing ok Pt denies any hypoglycemia Pt states that her glucose is around 100 or less at home. Pt denies any GI side effects Pt has been losing some weight physical Pt needs annual physical pt has chronic GERD. pt takes omeprazole and doing ok. Pt denies any abd pain or nausea, vomiting. Pt has chronic insomnia .Pt takes ativan qhs PRN and doing ok. Pt no longer feels anxious with ativan. Pt states that she can fall asleep easily but she wakes up several times at night Pt had negative sleep study two years ago Pt denies any snoring Pt has ulcerative colitis and sarcoid and she is on Plaquenil and entyvio and she is doing ok pt sees specialist at [facility]. Pt has HLP and borderline DM. and high phos .Pt takes rybelsus 7 mg daily. Pt denies any GI symptoms. DM Pt has borderlin e DM Pt is on rybelsus 3 mg daily and she is doing well Pt does not want to check glucose at home Pt denies any polyuria polydipsia. Pt denies any GI symptoms pt is out of 3 mg rybelsus and we are still waiting for hardship application from [employer]. pt also lost some weight with rybelsus insomnia1 Pt has chronic i nsomnia Pt takes ativan qhs PRn and doing ok. Pt denies any snoring GERD1 Pt has chronic G ERD Pt states that she never had EGD in the past. Pt doing ok with omeprazole DM Pt has borderlin e with weight issue Pt has difficulty losing weight. Pt has been on rybelsus 3 mg daily and she went on a trip and she did not eat properly and she actually gained some weight Pt was losing weight before she went on the trip DM Pt has borderlin e DM and weight issue. Pt is on rybelsus 3 mg daily. Pt tolerates medication ok Pt lost several pounds. Pt needs to apply financial assistance from [employer]. Pt brought in paper work for us to help her with the completion of the form. Her glucose is around 120s at home. Pt denies any nausea, vomiting abd pain DM Pt has borderlin e DM and weight issue. Pt is on rybelsus 3 mg daily. Pt tolerates medication ok Pt lost several pounds. Pt needs to apply financial assistance from [employer] DM Pt has DM pt sta rted rybelsus two weeks ago and she feels very well on it .Pt lost some weight Pt denies any dizziness. Pt denies any abd pain, nausea, vomiting, change of bowel, blood in stool, etc .Pt wants refill DM Pt has borderlin e DM Pt is obese. Pt denies any polyuria, polydipsia. Pt was given ozempic sample but she unfortunately she lost it. and she never had a chance to use it. DM Pt has mild insu cyndi resistance. Pt is overweight .Pt wants to try trulicity. Pt states that her daughter started trulicity last month which really worked for her weight loss and overall how she feels. Pt has hard time losing weight. insomnia Pt has insomnia Pt has some anxiety Pt states that she takes ativan 2 mg qhs and doing ok. Pt states that ativan helps her with insomnia and also anxiety. Pt denies any depression or any suicidal or homicidal thought pt denies any crying spells. insomnia Pt has chronic i nsomnia. It usually takes her two hours to fall asleep and she wakes up frequently during sleep and she has hard time falling back to sleep .Pt told me she had negative in lab sleep study last year. Pt does snore at night .Pt failed trazodone ,seroquel and ambien. Pt states that ativan 1 mg qhs does help but only slightly. Pt denies any sob insomnia Pt has chronic i nsomnia and she failed multiple medication Pt has been taking 1 mg ativan qhs which works well. Pt does have some anxiety associated with anxiety. Pt denies any depression or any suicidal or homicidal thought .Pt denies any crying spells insomnia Pt has chronic i nsomnia Pt states that she has difficulty falling asleep and staying asleep. Pt takes ambien qhs but no longer works. Pt denies any snoring Pt states that she had negative sleep study last year by her pulmonary doctor. Pt denies any fatigue. Pt has been taking ambien for long time. pt also failed trazodone which did not work either. pt states that she ends up taking multiple nap during the day since she sleeps poorly at night Pt denies any snoring or any difficulty with breathing at night. Pt feels anxious and she deal with her grandkid all day and she has hard time winding down at night. Pt denies any frequent urination at night HLP Pt has HLP Pt is not any diet phos1 Pt has high phos . Pt does not take any phos supplement. Pt denies any muscle cramp, weakness. glucose1 Pt has high gluc ose Pt denies any polyuria, polydipsia .Pt does eat a lot of carbs. insomnia1 Pt has chronic i nsomnia Pt takes ambien qhs [place] nand doing ok Pt denies any snoring. nail1 Pt c/o chronic n ail splinting and also vertical dark line around nails. Pt tried biotin but not helping Pt denies any itching, nail falling off. Pt denies any thickening nail. GERD Pt has chronic G ERD. Pt takes omeprazole and doing ok. pt needs refill physical Pt needs annual physical pt has chronic GERD. pt takes omeprazole and doing ok. Pt denies any abd pain or nausea, vomiting. Pt denies any abd pain Pt has chronic insomnia .Pt takes ambien qhs PRN and doing ok. Pt no longer feels anxious and depressed and she is off lexapro. Pt also notices improvement of hair growth as she has less anxiety. Pt had lab done which showed normal TSH but phos borderline high. Pt denies any muscle pain, paresthesia HTN Pt has borderlin e HTN today .Pt denies any chest pain or headache. Pt denies any h/o HTN GERD1 Pt has chronic G ERD. Pt denies any abd pain. Pt denies any nausea, vomiting. Pt takes omeprazole and doing ok. I can not locate her last EGD anxiety1 Pt has been feel ing very anxious and depressed recently Pt is mariya stressed out about home situation and her daughter and some other social stress PT denies any suicidal or homicidal thought. Pt denies any crying spells alopecia1 Pt c/o alopecia due to severe anxiety. Pt notices thinning of hair during last 6 months with large amount of hair loss in shower. Pt denies any itchy scalp insomnia1 Pt has chronic i nsomnia Pt takes ambien qhs. Pt states that he falls asleep very quickly after taking ambien but then she wakes up frequently throughout the night. pt denies and trouble with breathing or snoring at night. Pt did have negative sleep study recently. Pt wakes up at night in the middle of the night to urinate at least 2-3 times pt denies any urinary urgency, frequency during the day. pt denies any sob or PND pt denies any swelling Pt does have poor sleep cycle. Pt sometimes sleeps at night around 10 pm and sometime around 1 am. Pt does feel thirsty a lot. pt denies any urinary symptoms.. GERD1 pt has chronic G ERD Pt takes omeprazole daily and doing ok Pt failed pepcid. Pt has daily GERD without omeprazole. Pt denies any abd pain , nausea vomiting cataract1 Pt has bilateral cataract and she will undergo cataract surgery under monitored anesthesia in 4 weeks Pt needs surgical clearance. Pt denies any chest pain or sob or any adverse reaction to anesthesia. insomnia Pt has chronic i nsomnia and sleep disturbance. Pt had negative sleep study. Pt takes ambien 5 mg which only helps sometimes and she keeps waking up in the middle of the night despite taking ambien pt denies any snoring Pt does feel fatigue due to poor sleep insomnia Pt has chronic a nd intermittent insomnia Pt takes ambien qhs PRn and doing ok. Pt is trying to sleep naturally GERD Pt has chronic G ERD ,Pt takes omeprazole PRN only. Pt states that she only needs to take omeprazole 2-3 per week depending on her diet. Pt denies any abd pain. 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 Pt doing ok Pt is on entyvio. cough1 Pt has mild dry cough intermittently for several week Pt denies any sob, Pt denies any hemoptysis Pt denies any fever, chill ,Pt has mild sinus congestion. Pt denies any chest pain gout pt has history o f gout. She has not had gout attack for several years .Her uric acid is ok. glucose Pt has borderlin e high glucose. Her A1c is ok. Pt denies any polyuria, polydipsia. insomnia Pt has insomnia Pt is off seroquel and she is on ambien qhs PRn and she is doing ok Pt denies any snoring physical Pt needs annual physical Pt has UC and she sees GI. Pt also has sarcoid. Pt sees pulmonary. Pt has chronic GERD. Pt takes omeprazole PRn and doing ok. Pt has chronic insomnia .Pt states that seroquel 100 mg does not work anymore. Pt states that she took ambien long time ago which did help. Pt denies any new complaints sarcoidosis1 Pt has pulmonary and cutaneous sarcoidosis. Pt sees pulmonary at [facility] Pt states that Dr. Zarco is retiring and he told her to find a pulmonary on her own? Dr. Zarco is part of [facility] physician. gout Additional infor matkonstantin: Pt has intermittent GERD Pt told me she had benign EGD two years ago Pt takes omeprazole 1-2 per week. Pt needs refill. ankle pain1 Pt c/o acute ons et of left ankle pain for 2 weeks but improving Pt notices mild swelling and warmth Pt notices some pins and needle around left ankle as well Pt denies any injury. Pt states that she history of gout right ankle and he responded well to indocin. insomani1 Pt has insomnia Pt needs seroquel refilled. Pt does snore and she could not afford sleep study now insomnia1 pt has insomnia Pt takes seroquel qhs and doing ok. Pt is off trazodone and nortriptyline Pt doing ok. Pt does snore and she feels fatigue but she could not afford the home sleep study for now . sick Pt c/o productiv e coughing with green phlegm since 3 days ago. Pt c/o sore throat, running nose Pt denies any headache or ear pain Pt denies any fever Pt denies any recent travel or sick contact Pt denies any contact with benavidez virus infected individual. pt denies any sob or chest pain Pt has been taking tylenol for symptoms . dry skin Pt states that l eg itching improved with steroid. Pt has some spots on leg which sometimes itching and scabs. Pt has pulmonary sarcoid GERD1 Pt does not take omeprazole all the time Pt only takes 1-2 per week Pt denies any daily GERD or abd pain PHysical Pt needs annual physical pt c/o anterior lower tib/fib area itching and slight discoloration for several weeks Pt denies any rash, Pt has sarcoid and UC Pt is on Plaquenil. Pt has chronic insomnia Pt takes trazodone and seroquel. Pt occasionally takes nortriptyline. Pt has UC Pt sees GI. Pt sees pulmonary for sarcoid and she sees dermatology for cutaneous sarcoid. pt only takes omeprzole PRn. ferritin Pt has high ferr itin Her liver ultrasound is ok. Pt has sarcoid ,UC insomnia1 Pt has insomnia Pt denies any snoring or any trouble with breathing at night. Pt does snore at night Pt feels tired in the morning. Pt states that she can fall asleep but she keeps waking up in the middle of the night GERD1 Pt has GERD. Pt takes omeprazole and doing ok. Pt has UC Pt has not had any EGD for years Pt had EGD 2014 which was ok per pt Sarcoid1 Pt has sarcoid a nd history of lung fungal infection. Pt sees Dr. Zarco (pulmonary) and she uses albuterol PRN Pt uses albuterol 1-2 per day. PT denies any hemoptysis, worsening sob or cough ferritin Pt has high ferr itin. Pt told me she received iron infusion last year due to low iron from GI renal Pt has borderlin e renal disease, Pt has normal UO insomnia1 Pt states that s he is doing better with seroquel 100 mg qhs for insomnia GERD1 Pt doing ok with omeprazole Pt does not need to take daily. Pt is off ibuprofen and cimetidine glucose Pt has mildly hi gh glucose Pt denies any polyuria, polydipsia HLP Pt has mildly hi gh TG physical Pt needs annual physical Pt has very complicated medical condition Pt has ulcerative colitis s/p colectomy with internal J pouch pt sees GI specialist and she is on entyvio infusion every 8 weeks. Pt has anxiety and depression Pt takes seroquel and trazodone for insomnia. Pt also takes nortriptyline for insomnia also. Pt failed ambien. Pt does snore Pt feels tired in the morning and rest of the day. Pt still wakes up frequently at night due to rectal burning Pt has intermittent diarrhea due to her UC and colectomy pt denies any weight gain and weight loss. pt has been having GERD recently and she has been taking cimetidine. Instructions Date Instruction Additional Infor julio cion Special diet education Related t o Body mass index (BMI) 33.0-33.9, adult Special diet education Related t o Body mass index (BMI) 33.0-33.9, adult Special diet education Related t o Body mass index (BMI) 32.0-32.9, adult Assessments Type Assessment Date assessment Type 2 diabetes mellitus without complications assessment Generalized Anxiety Disorder Oct Mental Status Date Cognitive Assessment Orientation - Angwin ed to time, place, person, situation.
--- OUTSIDE RECORDS SUMMARY | 2024-10-24 19:35 | XMS_ITS | Clinical Summary ---
Author Organization [facility] Address [address] [place] [address] Phone Care Team Providers Care Electric Lineman Name Role Phone Joselito Preciado MD Primary Care Provider [phone] Allergies No known active allergies Medications ondansetron [...] Tablet daily. Active Vitamin A 4.5 MG (56558 UT) Tablet pt states once daily. pt [...] 8:47 AM CDT Height 165.1 cm (5' 5) 08/03/2020 8:47 AM CDT Body Mass Index 33.58 08/03/2020 8:47 AM CDT Plan of Treatment Health Maintenance Due Date Last Done Comments Hepatitis C Virus (HCV) Screening 1955 TdaP Immunization 1955 Zoster Immunization (1 of 2) 11/05/1974 Cologuard 11/05/2000 Colonoscopy 11/05/2000 Colorectal Cancer Screening 11/05/2000 Immunochemical Fecal Occult Blood 11/05/2000 Pneumococcal Immunization (5 0+ years) (1 of 1 - PCV) 11/05/2005 Respiratory Syncytial Virus (RSV) Immunization (Adult) (1 - Risk 60-74 years 1-dose series) 2015 SARS-COV-2 Immunization (3 - Pfizer risk series) 10/17/2020 09/19/2020, 08/29/2020 Influenza Immunization (Seas on Ended) 2025 02/08/2019 Hepatitis B Immunization Aged Out No longer eligible based on patient's age to complete this topic Human Papillomavirus (HPV) Immunization Aged Out No longer eligible b ased on patient's age to complete this topic Meningococcal Immunization (ACWY) Aged Out No longer eligible b ased on patient's age to complete this topic Rotavirus Immunization Aged Out No lo nger eligible based on patient's age to complete this topic Insurance [place] MEDICARE C [employer] Care Teams Electric Lineman Relationship Specialty Start Date End Date Joselito Preciado MD [facility] [place] [address] PCP - General Vacuum Cooker Operator 12/19/16
--- OUTSIDE RECORDS SUMMARY | 2024-10-24 19:35 | XMS_ITS | Encounter Summary ---
Author Organization [facility] Address [address] [place] [address] Phone Care Team Providers Care Furnace Maintenance Name Role Phone Joselito Preciado MD Primary Care Provider [phone] Nitin Matthews MD Primary Care Provider Unknown, Notinfile Unavailable Unavailable Kristin Frazier RN Unavailable UnavailMark Boggs MD Unavailable [phone] Pedrito Nails MD Unavailable [phone] Encounter Details Date Type Department Care Team (Late st Contact Info) Description 07/25/2017 Orders Only [facility] ProviderErnesto MD [address] [place] [address] Social History Tobacco Use Types Packs/Day Years Used Date Smoking Tobacco: Never Comments Unknown Sex and Gender Information Value Date Recorded Sex Assigned at Not on file 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 Gender Identity Not on file Sexual Orientation [...] on filedocumented in this encounter Care Teams Furnace Maintenance Relationship Specialty Start Date End Date Joselito Preciado MD [address] [place] [address] PCP - General 06/30/16 01/23/19 Nitin Matthews MD [address] [place] [address] PCP - General Family Medicine 01/24/19 Unknown, Notinfile Referring Physician 10/06/20 12/26/22 Kristin Frazier, RN Registered Nurse Pulmonary Disease 06/13/22 Mark Muñoz MD [address] [facility] [place] [id number] [place] [address] Surgeon Colon and Rectal Surgery 12/20/22 Pedrito Nails MD [address] [place] [address] Midlevel Provider Gastroenterology 12/27/22 documented as of this encounter
--- OUTSIDE RECORDS SUMMARY | 2024-10-24 19:35 | XMS_ITS | Continuity of Care Document ---
Author Organization [facility] Address [address] [place] [address] [place] [address] Phone Care Team Providers Care Graphite Grinder Name Role Phone Bouchra Mo Unavailable Unavailable Procedures Procedure Date Eye Exam Established Pt Office/outpatient Visit, Est Office/outpatient Visit, Est Eye Exam, New Patient Advance Directives Directive Yes / No Effective Date File Name No Information Encounters Encounter Description Practice Location Reason(s) For Visit Diagnoses Date Provider Providers Copied on Encounter [facility], [address] [place] [address] [address], [place], [place], [id number], [place] tel:[phone] [facility] No Information 9 Chely Pisano [address] [facility] , [address], [place], [place], [facility], [place]. tel:[phone] Office/outpat ient Visit, [facility], [address] [place] [address] [address], [place], [place], [id number], [place] tel:[phone] [facility] [place] No Information 8 Chely Pisano [address], [address], [place], [address], [place]. tel:[phone] Office/outpat ient Visit, [facility], [address] [place] [address] [address], [place], [place], [id number], [place] tel:[phone] [facility] [place] No Information 8 Chely Pisano [address] , [address], [place], [address], [place]. tel:[phone] [facility], [address], [place], [place], [id number], [place] tel:[phone] [facility] No Information [address] [facility] , [address], [place], [address], [place]. tel:[phone] Referring Provider: Juan Luis Gramajo MD, [address] [place] [address], [place], [address]. tel:[phone] Family History Family Member Type Diagnosis Age At Onset No Information Payers Payer name Insurance type Covered constitution party ID Authoriza tion(s) No Information Social History Type Description Quantity Date Captured Comments Sex Female Smoking Status No Information Chief Complaint And Reason For Visit No Information Reason For Referral Reason For Referral No Information History Of Present Illness Encounter Date Complaint History Of Prese nt Illness No Information Functional Status Date Functional Assessmen t No Information Instructions Date Instruction Additional Infor mation No Information Assessments Type Assessment Date No Information Patient Care Teams Name Effective Dates (start - stop) Status Members No Information
--- NOTE | 2024-10-24 19:36 | ED.ABDPAIN ---
HPI - Abdominal Pain General Chief Complaint: Abdominal Pain <Cong Marcano MD - Last Filed: 10/25/24 06:26> Stated Complaint: abd pain <Cong Marcano MD - Last Filed: 10/25/24 06:26> Time Seen by Provider: 10/24/24 19:11 <Cong Marcano MD - Last Filed: 10/25/24 06:26> History of Present Illness HPI narrative: Patient is a 68-year-old female who presents ER with abdominal pain. Has history of ulcerative colitis with colectomy and J-pouch. Has been having cramping for couple of days. Reports she is constipated is only passed a couple of firm stools. No fevers or chills or sweats. No chest pain or chest pressure. No bloating. She has vomited 10 times today. <Cong Marcano MD - Last Filed: 10/25/24 06:26> Related Data Home Medications: Home Medications ?Medication ?Instructions ?Recorded ?Confirmed ?Last Taken ?Type fluticasone propionate 220 2 puff inhalation DAILY 11/19/20 10/25/24 Unknown History mcg/actuation HFA aerosol inhaler (Flovent HFA) quetiapine 100 mg tablet 100 mg PO DAILY 11/19/20 10/25/24 Unknown History hydroxychloroquine 200 mg tablet 200 mg PO DAILY 02/18/21 10/25/24 Unknown History loperamide 2 mg capsule 2 mg PO Q4H PRN loose stool 02/18/21 10/25/24 Unknown History alprazolam 1 mg tablet 1 mg PO DAILY 03/08/23 10/25/24 Unknown History propranolol 40 mg tablet 40 mg PO Q12H 03/08/23 10/25/24 Unknown History sertraline 50 mg tablet 50 mg PO DAILY 03/08/23 10/25/24 Unknown History azelastine 137 mcg (0.1 %) nasal 1 spray intranasal PRN 10/25/24 10/25/24 Unknown History spray <Cong Marcano MD - Last Filed: 10/25/24 06:26> Allergies/Adverse Reactions: Allergies Allergy/AdvReac Type Severity Reaction Status Date / Time zinc Allergy Unknown Nausea and Verified 10/25/24 06:39 Vomiting, Dizziness <Cong Marcano MD - Last Filed: 10/25/24 06:26> Review of Systems Review of Systems: All systems reviewed & are unremarkable except as noted in HPI and below <Cong Marcano MD - Last Filed: 10/25/24 06:26> Constitutional: Constitutional: Reports no additional constitutional complaints <Cong Marcano MD - Last Filed: 10/25/24 06:26> ENT: Reports system reviewed and no additional complaints, except as documented <Cong Marcano MD - Last Filed: 10/25/24 06:26> Cardiovascular: Cardiovascular: Reports no additional cardiovascular complaints <Cong Marcano MD - Last Filed: 10/25/24 06:26> Respiratory: Respiratory: Reports no additional respiratory complaints <Cong Marcano MD - Last Filed: 10/25/24 06:26> Gastrointestinal: Gastrointestinal: Reports no additional gastrointestinal complaints <Cong Marcano MD - Last Filed: 10/25/24 06:26> [facility] Past Medical History Medical History: Medical History Sarcoid Ulcerative colitis COPD (chronic obstructive pulmonary disease) Hypertension <Cong Marcano MD - Last Filed: 10/25/24 06:26> Surgical History Surgical History: Surgical History History of tonsillectomy History of colon surgery History of partial hysterectomy History of foot surgery History of carpal tunnel release of both wrists History of partial knee replacement left History of eye surgery History of cataract extraction No pertinent past surgical history <Cong Marcano MD - Last Filed: 10/25/24 06:26> Family History Family History: Family History Mother Hypertension Cancer CHF (congestive heart failure) Father Alcoholism Asthma Cancer Diabetes mellitus Hypertension Depression Heart disease Cerebrovascular accident Sibling Alcoholism Hypertension Depression Cerebrovascular accident Grandparent Alcoholism Grandparent Alcoholism Heart disease <Cong Marcano MD - Last Filed: 10/25/24 06:26> Social History Social History: Social History (Updated 07/14/23 @ 01:46 by Danette Guerin MD) Smoking status: Never smoker Alcohol intake: never Substance use: never Lack of Transportation: No Lack of Food: Never True Current Housing: I Have Housing Concerned About Future Housing: No Difficulty Paying Gas/Electric Bills: No Difficulty Paying for Meds: No Currently Unemployed: No Education: Trade/Vocational Certificate Difficulty w/ Childcare or Family Care: No Living arrangements: alone Occupation/Education: retired Gender identity (if verbalized by the patient): Female Additional gender identity comments: sexually active with 1 male partner Sexual Orientation (if Verbalized by the Patient): Straight or Heterosexual Spiritual care concerns: No <Cong Marcano MD - Last Filed: 10/25/24 06:26> Exam Narrative: GENERAL: Problem fatigue-appearing, well-nourished, and in no acute distress. HEAD: Normocephalic, atraumatic. EYES: PERRL and EOMI. ENT: Mucous membranes moist. CHEST: Clear to auscultation. No respiratory distress. HEART: Regular rate and rhythm. Normal peripheral pulses. ABDOMEN: Soft, mild diffuse discomfort, nondistended. EXTREMITIES: Normal range of motion. No edema. SKIN: Warm, dry, no rash. NEURO: Alert and oriented x3. PSYCH: Normal mood and affect. <Cong Marcano MD - Last Filed: 10/25/24 06:26> Course Course Emergency Course: 2318: Accepted to [facility] by DR. Aguero with GI. Keep NPO, NG being placed. Will likely need over seizure with balloon dilation of stricture. Patient has received morphine and Dilaudid for pain. 625 on 10/25: Awaiting a bed at [facility]. Care transferred to Dr. Soriano. <Cong Marcano MD - Last Filed: 10/25/24 06:26> Reevaluation(s) Reevaluation #1: Still multiple days bed opens at [facility], and patient already here for 24 hours in the emergency room. Discussed with Dr. Mcknight here general surgery, he will not be operating but will be available for consult if patient were to be boarding up stairs inside of in the ER. Discussed with hospitalist who was agreeable to keeping patient upstairs until bed available. Discussed with patient who is happy with the plan <Korin Calvert MD - Last Filed: 10/25/24 21:55> Vital Signs Vital signs: Vital Signs Temperature 98.8 F 10/24/24 19:21 Pulse Rate 58 L 10/24/24 19:21 Respiratory Rate 18 10/24/24 19:21 Blood Pressure 179/99 H 10/24/24 19:21 Pulse Oximetry 100 10/24/24 19:21 Oxygen Delivery Room Air 10/24/24 19:21 Temperature 97.5 F L 10/25/24 07:09 Pulse Rate 63 10/25/24 17:08 Respiratory Rate 14 10/25/24 17:08 Blood Pressure 158/72 H 10/25/24 17:08 Pulse Oximetry 100 10/25/24 17:08 Oxygen Delivery Room Air 10/24/24 19:21 <Cong Marcano MD - Last Filed: 10/25/24 06:26> Vital Signs Temperature 98.8 F 10/24/24 19:21 Pulse Rate 58 L 10/24/24 19:21 Respiratory Rate 18 10/24/24 19:21 Blood Pressure 179/99 H 10/24/24 19:21 Pulse Oximetry 100 10/24/24 19:21 Oxygen Delivery Room Air 10/24/24 19:21 Temperature 97.5 F L 10/25/24 07:09 Pulse Rate 63 10/25/24 17:08 Respiratory Rate 14 10/25/24 17:08 Blood Pressure 158/72 H 10/25/24 17:08 Pulse Oximetry 100 10/25/24 17:08 Oxygen Delivery Room Air 10/24/24 19:21 <Korin Calvert MD - Last Filed: 10/25/24 21:55> MDM - Abdominal Pain Lab Data Result diagrams: 10/24/24 19:45 10/24/24 19:45 <Cong Marcano MD - Last Filed: 10/25/24 06:26> Labs: Lab Results 10/24/24 10/25/24 10/25/24 Range/Units 19:45 07:07 09:00 WBC 11.9 H (4.5-10.0) K/mm3 RBC 4.48 (4.2-5.4) M/mm3 Hgb 13.8 (12.0-15.0) g/dL Hct 41.6 (37.0-47.0) % MCV 92.9 (80-100) fl MCH 30.8 (26-34) pg MCHC 33.2 (32-36) g/dl RDW 12.5 (11.5-14.5) % Plt Count 211 (150-375) k/mm3 MPV 9.9 (7.4-10.4) fl Immature Gran % (Auto) 0.2 (0-0.5) % Neut % (Auto) 80.1 H (45.5-73.1) % Lymph % (Auto) 13.6 L (18.3-44.2) % [place] % (Auto) 4.7 (2.6-8.5) % Eos % (Auto) 1.2 (0-4.4) % Baso % (Auto) 0.2 (0.2-1.2) % Lymph # (Auto) 1.62 (0.9-3.2) K/mm3 [place] # (Auto) 0.6 (0.1-0.6) K/mm3 Eos # (Auto) 0.1 (0-0.3) K/mm3 Baso # (Auto) 0.0 (0.0-0.1) K/mm3 Abs Immat Gran (auto) 0.02 (0.00-0.031) K/mm3 Absolute Neuts (auto) 9.5 H (1.3-6.7) K/mm3 Absolute Nucleated RBC 0.000 (0.0-0.012) K/mm3 Nucleated RBC % 0.0 (0.0-0.2) % Sodium 140 (137-145) mmol/L Potassium 4.3 (3.4-5.0) mmol/L Chloride 103 (98-107) mmol/L Carbon Dioxide 28 (22-30) mmol/L Anion Gap 9 (4-12) mmol/L BUN 11 (7-17) mg/dL Creatinine 0.83 (0.7-1.0) mg/dL Estim Creat Clear Calc 60 ml/min Estimated GFR > 60 (59 - ) Glucose 131 H (65-110) mg/dL POC Capillary Glucose 125 H 140 H (65-105) mg/dl Calcium 9.9 (8.4-10.2) mg/dL Total Bilirubin 0.4 (0.2-1.3) mg/dL AST 31 (14-36) U/L ALT 21 (6-35) U/L Alkaline Phosphatase 61 (38-126) U/L Total Protein 8.0 (6.3-8.2) g/dL Albumin 4.6 (3.5-5.1) g/dL Lipase 94 (23-300) U/L 10/25/24 10/25/24 10/25/24 Range/Units 10:19 12:34 15:23 WBC (4.5-10.0) K/mm3 RBC (4.2-5.4) M/mm3 Hgb (12.0-15.0) g/dL Hct (37.0-47.0) % MCV (80-100) fl MCH (26-34) pg MCHC (32-36) g/dl RDW (11.5-14.5) % Plt Count (150-375) k/mm3 MPV (7.4-10.4) fl Immature Gran % (Auto) (0-0.5) % Neut % (Auto) (45.5-73.1) % Lymph % (Auto) (18.3-44.2) % [place] % (Auto) (2.6-8.5) % Eos % (Auto) (0-4.4) % Baso % (Auto) (0.2-1.2) % Lymph # (Auto) (0.9-3.2) K/mm3 [place] # (Auto) (0.1-0.6) K/mm3 Eos # (Auto) (0-0.3) K/mm3 Baso # (Auto) (0.0-0.1) K/mm3 Abs Immat Gran (auto) (0.00-0.031) K/mm3 Absolute Neuts (auto) (1.3-6.7) K/mm3 Absolute Nucleated RBC (0.0-0.012) K/mm3 Nucleated RBC % (0.0-0.2) % Sodium (137-145) mmol/L Potassium (3.4-5.0) mmol/L Chloride (98-107) mmol/L Carbon Dioxide (22-30) mmol/L Anion Gap (4-12) mmol/L BUN (7-17) mg/dL Creatinine (0.7-1.0) mg/dL Estim Creat Clear Calc ml/min Estimated GFR (59 - ) Glucose (65-110) mg/dL POC Capillary Glucose 126 H 119 H 123 H (65-105) mg/dl Calcium (8.4-10.2) mg/dL Total Bilirubin (0.2-1.3) mg/dL AST (14-36) U/L ALT (6-35) U/L Alkaline Phosphatase (38-126) U/L Total Protein (6.3-8.2) g/dL Albumin (3.5-5.1) g/dL Lipase (23-300) U/L 10/25/24 10/25/24 10/25/24 Range/Units 17:07 19:08 20:25 WBC (4.5-10.0) K/mm3 RBC (4.2-5.4) M/mm3 Hgb (12.0-15.0) g/dL Hct (37.0-47.0) % MCV (80-100) fl MCH (26-34) pg MCHC (32-36) g/dl RDW (11.5-14.5) % Plt Count (150-375) k/mm3 MPV (7.4-10.4) fl Immature Gran % (Auto) (0-0.5) % Neut % (Auto) (45.5-73.1) % Lymph % (Auto) (18.3-44.2) % [place] % (Auto) (2.6-8.5) % Eos % (Auto) (0-4.4) % Baso % (Auto) (0.2-1.2) % Lymph # (Auto) (0.9-3.2) K/mm3 [place] # (Auto) (0.1-0.6) K/mm3 Eos # (Auto) (0-0.3) K/mm3 Baso # (Auto) (0.0-0.1) K/mm3 Abs Immat Gran (auto) (0.00-0.031) K/mm3 Absolute Neuts (auto) (1.3-6.7) K/mm3 Absolute Nucleated RBC (0.0-0.012) K/mm3 Nucleated RBC % (0.0-0.2) % Sodium (137-145) mmol/L Potassium (3.4-5.0) mmol/L Chloride (98-107) mmol/L Carbon Dioxide (22-30) mmol/L Anion Gap (4-12) mmol/L BUN (7-17) mg/dL Creatinine (0.7-1.0) mg/dL Estim Creat Clear Calc ml/min Estimated GFR (59 - ) Glucose (65-110) mg/dL POC Capillary Glucose 141 H 128 H 155 H (65-105) mg/dl Calcium (8.4-10.2) mg/dL Total Bilirubin (0.2-1.3) mg/dL AST (14-36) U/L ALT (6-35) U/L Alkaline Phosphatase (38-126) U/L Total Protein (6.3-8.2) g/dL Albumin (3.5-5.1) g/dL Lipase (23-300) U/L <Cong Marcano MD - Last Filed: 10/25/24 06:26> Lab Results 10/24/24 10/25/24 10/25/24 Range/Units 19:45 07:07 09:00 WBC 11.9 H (4.5-10.0) K/mm3 RBC 4.48 (4.2-5.4) M/mm3 Hgb 13.8 (12.0-15.0) g/dL Hct 41.6 (37.0-47.0) % MCV 92.9 (80-100) fl MCH 30.8 (26-34) pg MCHC 33.2 (32-36) g/dl RDW 12.5 (11.5-14.5) % Plt Count 211 (150-375) k/mm3 MPV 9.9 (7.4-10.4) fl Immature Gran % (Auto) 0.2 (0-0.5) % Neut % (Auto) 80.1 H (45.5-73.1) % Lymph % (Auto) 13.6 L (18.3-44.2) % [place] % (Auto) 4.7 (2.6-8.5) % Eos % (Auto) 1.2 (0-4.4) % Baso % (Auto) 0.2 (0.2-1.2) % Lymph # (Auto) 1.62 (0.9-3.2) K/mm3 [place] # (Auto) 0.6 (0.1-0.6) K/mm3 Eos # (Auto) 0.1 (0-0.3) K/mm3 Baso # (Auto) 0.0 (0.0-0.1) K/mm3 Abs Immat Gran (auto) 0.02 (0.00-0.031) K/mm3 Absolute Neuts (auto) 9.5 H (1.3-6.7) K/mm3 Absolute Nucleated RBC 0.000 (0.0-0.012) K/mm3 Nucleated RBC % 0.0 (0.0-0.2) % Sodium 140 (137-145) mmol/L Potassium 4.3 (3.4-5.0) mmol/L Chloride 103 (98-107) mmol/L Carbon Dioxide 28 (22-30) mmol/L Anion Gap 9 (4-12) mmol/L BUN 11 (7-17) mg/dL Creatinine 0.83 (0.7-1.0) mg/dL Estim Creat Clear Calc 60 ml/min Estimated GFR > 60 (59 - ) Glucose 131 H (65-110) mg/dL POC Capillary Glucose 125 H 140 H (65-105) mg/dl Calcium 9.9 (8.4-10.2) mg/dL Total Bilirubin 0.4 (0.2-1.3) mg/dL AST 31 (14-36) U/L ALT 21 (6-35) U/L Alkaline Phosphatase 61 (38-126) U/L Total Protein 8.0 (6.3-8.2) g/dL Albumin 4.6 (3.5-5.1) g/dL Lipase 94 (23-300) U/L 10/25/24 10/25/24 10/25/24 Range/Units 10:19 12:34 15:23 WBC (4.5-10.0) K/mm3 RBC (4.2-5.4) M/mm3 Hgb (12.0-15.0) g/dL Hct (37.0-47.0) % MCV (80-100) fl MCH (26-34) pg MCHC (32-36) g/dl RDW (11.5-14.5) % Plt Count (150-375) k/mm3 MPV (7.4-10.4) fl Immature Gran % (Auto) (0-0.5) % Neut % (Auto) (45.5-73.1) % Lymph % (Auto) (18.3-44.2) % [place] % (Auto) (2.6-8.5) % Eos % (Auto) (0-4.4) % Baso % (Auto) (0.2-1.2) % Lymph # (Auto) (0.9-3.2) K/mm3 [place] # (Auto) (0.1-0.6) K/mm3 Eos # (Auto) (0-0.3) K/mm3 Baso # (Auto) (0.0-0.1) K/mm3 Abs Immat Gran (auto) (0.00-0.031) K/mm3 Absolute Neuts (auto) (1.3-6.7) K/mm3 Absolute Nucleated RBC (0.0-0.012) K/mm3 Nucleated RBC % (0.0-0.2) % Sodium (137-145) mmol/L Potassium (3.4-5.0) mmol/L Chloride (98-107) mmol/L Carbon Dioxide (22-30) mmol/L Anion Gap (4-12) mmol/L BUN (7-17) mg/dL Creatinine (0.7-1.0) mg/dL Estim Creat Clear Calc ml/min Estimated GFR (59 - ) Glucose (65-110) mg/dL POC Capillary Glucose 126 H 119 H 123 H (65-105) mg/dl Calcium (8.4-10.2) mg/dL Total Bilirubin (0.2-1.3) mg/dL AST (14-36) U/L ALT (6-35) U/L Alkaline Phosphatase (38-126) U/L Total Protein (6.3-8.2) g/dL Albumin (3.5-5.1) g/dL Lipase (23-300) U/L 10/25/24 10/25/24 10/25/24 Range/Units 17:07 19:08 20:25 WBC (4.5-10.0) K/mm3 RBC (4.2-5.4) M/mm3 Hgb (12.0-15.0) g/dL Hct (37.0-47.0) % MCV (80-100) fl MCH (26-34) pg MCHC (32-36) g/dl RDW (11.5-14.5) % Plt Count (150-375) k/mm3 MPV (7.4-10.4) fl Immature Gran % (Auto) (0-0.5) % Neut % (Auto) (45.5-73.1) % Lymph % (Auto) (18.3-44.2) % [place] % (Auto) (2.6-8.5) % Eos % (Auto) (0-4.4) % Baso % (Auto) (0.2-1.2) % Lymph # (Auto) (0.9-3.2) K/mm3 [place] # (Auto) (0.1-0.6) K/mm3 Eos # (Auto) (0-0.3) K/mm3 Baso # (Auto) (0.0-0.1) K/mm3 Abs Immat Gran (auto) (0.00-0.031) K/mm3 Absolute Neuts (auto) (1.3-6.7) K/mm3 Absolute Nucleated RBC (0.0-0.012) K/mm3 Nucleated RBC % (0.0-0.2) % Sodium (137-145) mmol/L Potassium (3.4-5.0) mmol/L Chloride (98-107) mmol/L Carbon Dioxide (22-30) mmol/L Anion Gap (4-12) mmol/L BUN (7-17) mg/dL Creatinine (0.7-1.0) mg/dL Estim Creat Clear Calc ml/min Estimated GFR (59 - ) Glucose (65-110) mg/dL POC Capillary Glucose 141 H 128 H 155 H (65-105) mg/dl Calcium (8.4-10.2) mg/dL Total Bilirubin (0.2-1.3) mg/dL AST (14-36) U/L ALT (6-35) U/L Alkaline Phosphatase (38-126) U/L Total Protein (6.3-8.2) g/dL Albumin (3.5-5.1) g/dL Lipase (23-300) U/L <Korin Calvert MD - Last Filed: 10/25/24 21:55> Imaging Data Radiologist's impression: ITS Impressions Abdomen/Pelvis CT 10/24/24 22:00 IMPRESSION: 1. Dilated bowel suggestive of obstruction with the area of transition seen in the left mid abdomen most likely a site of stricture. 2. Small sliding hiatus hernia. Abdomen X-Ray 10/24/24 23:58 IMPRESSION: Dilated bowel loops suggestive of obstruction. Follow-up advised. Nasogastric tube with the tip in the fundus of the stomach. <Cong Marcano MD - Last Filed: 10/25/24 06:26> ITS Impressions Abdomen/Pelvis CT 10/24/24 22:00 IMPRESSION: 1. Dilated bowel suggestive of obstruction with the area of transition seen in the left mid abdomen most likely a site of stricture. 2. Small sliding hiatus hernia. Abdomen X-Ray 10/24/24 23:58 IMPRESSION: Dilated bowel loops suggestive of obstruction. Follow-up advised. Nasogastric tube with the tip in the fundus of the stomach. <Korin Calvert MD - Last Filed: 10/25/24 21:55> Discharge Plan Discharge Clinical Impression: Bowel obstruction <Cong Marcano MD - Last Filed: 10/25/24 06:26> Patient Disposition: Acute Care Hospital <Cong Marcano MD - Last Filed: 10/25/24 06:26> Condition: Stable <Cong Marcano MD - Last Filed: 10/25/24 06:26> Instructions: Antibiotic Form <Cong Marcano MD - Last Filed: 10/25/24 06:26> Patient Language: [place] <Cong Marcano MD - Last Filed: 10/25/24 06:26> Prescriptions: No Action loperamide 2 mg capsule 2 mg PO Q4H PRN (Reason: loose stool) Rx Instructions: administer after each loose stool until symptoms controlled; do not exceed 8 mg per 24 hrs hydroxychloroquine 200 mg tablet 200 mg PO DAILY mupirocin 2 % ointment 1 applic topical BID Qty: 22 12RF alprazolam 1 mg tablet 1 mg PO DAILY propranolol 40 mg tablet 40 mg PO Q12H sertraline 50 mg tablet 50 mg PO DAILY quetiapine 100 mg tablet 100 mg PO DAILY fluticasone propionate [Flovent HFA] 220 mcg/actuation HFA aerosol inhaler 2 puff INHALATION DAILY famotidine [Pepcid] 40 mg tablet 40 mg PO DAILY 10 Days Qty: 10 0RF acetaminophen 500 mg capsule 1,000 mg PO Q6H PRN (Reason: pain) Qty: 30 0RF white petrolatum [White Petroleum Jelly] Gel 1 applic topical 4-12XD PRN (Reason: dry skin) Qty: 368 0RF lidocaine 4 % adhesive patch,medicated 1 patch topical DAILY PRN (Reason: pain) Qty: 5 0RF methocarbamol 750 mg tablet 750 mg PO HS Qty: 7 0RF azelastine 137 mcg (0.1 %) aerosol,spray 1 spray intranasal PRN Rx Instructions: administer into each nostril <Cong Marcano MD - Last Filed: 10/25/24 06:26> Follow-up/Referrals: Nitin Matthews MD [Primary Care Provider] - <Cong Marcano MD - Last Filed: 10/25/24 06:26>
[2024-10-24 19:55] LABS: Basophils Percent Auto 0.2 % (0.2-1.2); Eosinophils Absolute Auto 0.1 K/mm3 (0-0.3); Eosinophils Percent Auto 1.2 % (0-4.4); Hematocrit 41.6 % (37.0-47.0); Hemoglobin 13.8 g/dL (12.0-15.0); Immature Granulocyte Absolute 0.02 K/mm3 (0.00-0.031); Immature Granulocyte Percent A 0.2 % (0-0.5); Lymphocytes Absolute Auto 1.62 K/mm3 (0.9-3.2); Lymphocytes Percent Auto 13.6 % (18.3-44.2); Mean Corpuscular HGB Conc 33.2 g/dl (32-36); Mean Corpuscular Hemoglobin 30.8 pg (26-34); Mean Corpuscular Volume 92.9 fl (80-100); Mean Platelet Volume 9.9 fl (7.4-10.4); Monocytes Absolute Auto 0.6 K/mm3 (0.1-0.6); Monocytes Percent Auto 4.7 % (2.6-8.5); Neutrophils Absolute Auto 9.5 K/mm3 (1.3-6.7); Neutrophils Percent Auto 80.1 % (45.5-73.1); Platelet Count Result 211 k/mm3 (150-375); Red Blood Count 4.48 M/mm3 (4.2-5.4); Red Cell Distribution Width 12.5 % (11.5-14.5); White Blood Count 11.9 K/mm3 (4.5-10.0)
[2024-10-24] MEDS: MORPHINE SULFATE (*CRX) 2 MG/ML INJ IV PUSH (20:00)
[2024-10-24 20:09] LABS: Alanine Aminotransferase 21 U/L (6-35); Albumin Level 4.6 g/dL (3.5-5.1); Alkaline Phosphatase 61 U/L (38-126); Anion Gap 9 mmol/L (4-12); Aspartate Amino Transferase 31 U/L (14-36); Bilirubin,Total 0.4 mg/dL (0.2-1.3); Blood Urea Nitrogen 11 mg/dL (7-17); Calcium 9.9 mg/dL (8.4-10.2); Carbon Dioxide 28 mmol/L (22-30); Chloride 103 mmol/L (98-107); Estimated CRCL calculation 60 ml/min; Estimated Glomerular Filt Rate > 60; Glucose 131 mg/dL (65-110); Lipase 94 U/L (23-300); Potassium 4.3 mmol/L (3.4-5.0); Sodium 140 mmol/L (137-145)
[2024-10-24 20:13] VITALS: BP 156/79; PULSE 58; RESP 22; O2SAT 99
[2024-10-24 20:16] VITALS: BP 160/72; PULSE 57; RESP 21; O2SAT 100
[2024-10-24] MEDS: HYDROmorphone HCL INJ (*CRX) 2 MG/ML VIAL 1 MG IV PUSH (20:41)
[2024-10-24 23:09] VITALS: BP 152/78; PULSE 65; RESP 17; O2SAT 97
--- NOTE | 2024-10-24 23:42 | PC.NURSE ---
Assumed care of patient at 1925 after receiving bedside report from Esperanza Armstrong RN.
--- NOTE | 2024-10-24 23:47 | PC.NURSE ---
NG tube inserted by this RN & AIDE Jiang. 16 fr inserted 66 @ the tip of the R nostril Placement confirmed by auscultation, spontaneous return, and xray NG tube hooked up to low int. suction
--- NOTE | 2024-10-24 23:50 | PC.NURSE ---
Spoke with Ayanna from [facility] Transfer center to answer triage questions. Ayanna stated she would call back once patient recieves a bed assignment but it would be a few days.
[2024-10-25] VITALS (16 sets, daily range): BP systolic 134–168; BP diastolic 58–84; PULSE 50–65; RESP 12–20; TEMP 36.4–36.5; O2SAT 97–100; BMI 30.5
[2024-10-25] MEDS: HYDROmorphone HCL INJ (*CRX) 2 MG/ML VIAL 0.5 MG IV PUSH (00:47)
--- NOTE | 2024-10-25 03:35 | PC.NURSE ---
Pt was placed in a hospital bed for more comfort.
[2024-10-25] MEDS: DEXTROSE 5%/0.9% SOD CHL 1,000 ML 125 ML IV CONT ×2 (07:08→15:18)
[2024-10-25 07:15] LABS: Glucose Point of Care 125 mg/dl (65-105)
[2024-10-25 09:02] LABS: Glucose Point of Care 140 mg/dl (65-105)
[2024-10-25] MEDS: MORPHINE SULFATE (*CRX) 4 MG/ML INJ IV PUSH ×4 (09:05→21:38)
[2024-10-25 10:22] LABS: Glucose Point of Care 126 mg/dl (65-105)
--- NOTE | 2024-10-25 11:26 | PC.NURSE ---
This RN spoke with Raquel at the [facility] transfer center regarding pt status. This RN gave update regarding pt including recent vital signs and medications given. Raquel stated there are no beds available at this time and that pt remains on the waitlist.
[2024-10-25 12:37] LABS: Glucose Point of Care 119 mg/dl (65-105)
[2024-10-25 15:32] LABS: Glucose Point of Care 123 mg/dl (65-105)
[2024-10-25 17:14] LABS: Glucose Point of Care 141 mg/dl (65-105)
[2024-10-25 19:16] LABS: Glucose Point of Care 128 mg/dl (65-105)
[2024-10-25 20:28] LABS: Glucose Point of Care 155 mg/dl (65-105)
--- NOTE | 2024-10-26 00:36 | ADMGEN ---
Patient admitted from the ED with abdominal pain. Verbalizes cramping and admitted to ed-surg with an NG tube. No nausea/vomiting noted on admission.
--- NOTE | 2024-10-26 00:40 | PM.IMHP ---
H&P: HPI History of Present Illness Date/Time: 10/26/24 01:30 Chief Complaint: Abdominal pain. Narrative: This is a 68-year-old female with ulcerative colitis with history of J-pouch surgery, section, hysterectomy, and sarcoidosis who presented to the emergency department yesterday evening via EMS from home with complaints of abdominal pain. She gives a several day history of abdominal cramping which intensified early yesterday morning. Shortly thereafter she began to vomit and she estimates vomiting 10 times before coming to the ED. She has been constipated and reports passing only very small amounts of firm stool for several days. She denies sick contacts, fever, chest pain, shortness of breath, hematemesis, melena, hematochezia, and dysuria. In the ED: Vital signs on arrival include a temperature of 98.8?, blood pressure 170/99, pulse 58, respiratory 18, SpO2 100% on room air. Labs were significant for WBC count of 11.9, hemoglobin 13.8, sodium 140, potassium 4.3, BUN 11, creatinine 0.83, glucose 131, lipase 94. Abdomen/pelvis CT showed dilated bowel suggestive of obstruction with area of transition seen in the left mid abdomen, most likely at the site of the stricture. NG tube was inserted and she received analgesics and antiemetics. Transfer was initiated to [place] and she has been accepted by Dr. Aguero with GI. It has now been 24 hours and [facility] does not anticipate today bed to open up in the next couple of days and she is being admitted in this setting pending transfer. Review of Systems Review of Systems: 12 systems were reviewed and are negative except for as per HPI. [facility] Past Medical History Medical History (Updated 10/26/24 @ 06:12 by Yahaira Pantoja PA-C) Prediabetes Asthma Sarcoidosis Ulcerative colitis Hypertension Surgical History Surgical History (Updated 10/26/24 @ 06:05 by Yahaira Pantoja PA-C) History of tonsillectomy History of colon surgery History of partial hysterectomy History of foot surgery History of carpal tunnel release of both wrists History of partial knee replacement left History of eye surgery History of cataract extraction Family History Family History Mother Hypertension Cancer CHF (congestive heart failure) Father Alcoholism Asthma Cancer Diabetes mellitus Hypertension Depression Heart disease Cerebrovascular accident Sibling Alcoholism Hypertension Depression Cerebrovascular accident Grandparent Alcoholism Grandparent Alcoholism Heart disease Social History Social History (Updated 10/26/24 @ 06:10 by Yahaira Pantoja PA-C) Social History: Surrogate medical decision maker: Loren Lopez, daughter. Code status: Full code. Smoking status: Never smoker Second hand tobacco smoke exposure: No Alcohol intake: never Substance use: never Do You Feel Safe in your Home?: Yes Lack of Transportation: No Lack of Food: Never True Current Housing: I Have Housing Concerned About Future Housing: No Difficulty Paying Gas/Electric Bills: No Difficulty Paying for Meds: No Currently Unemployed: No Education: Decline to Answer Difficulty w/ Childcare or Family Care: No Living arrangements: alone Occupation/Education: retired Spiritual care concerns: No Meds Home Medications and Allergies Home Medications ?Medication ?Instructions ?Recorded ?Confirmed ?Type fluticasone propionate 220 2 puff inhalation DAILY 11/19/20 10/25/24 History mcg/actuation HFA aerosol inhaler (Flovent HFA) quetiapine 100 mg tablet 100 mg PO DAILY 11/19/20 10/25/24 History hydroxychloroquine 200 mg tablet 200 mg PO DAILY 02/18/21 10/25/24 History loperamide 2 mg capsule 2 mg PO Q4H PRN loose stool 02/18/21 10/25/24 History mupirocin 2 % topical ointment 1 applic topical BID #22 grams 05/27/22 10/25/24 Rx alprazolam 1 mg tablet 1 mg PO DAILY 03/08/23 10/25/24 History propranolol 40 mg tablet 40 mg PO Q12H 03/08/23 10/25/24 History sertraline 50 mg tablet 50 mg PO DAILY 03/08/23 10/25/24 History famotidine 40 mg tablet (Pepcid) 40 mg PO DAILY 10 days #10 tabs 04/23/23 10/25/24 Rx acetaminophen 500 mg capsule 1,000 mg (2 x 500 mg) PO Q6H PRN 07/13/23 10/25/24 Rx pain #30 caps white petrolatum (White Petroleum 1 applic topical 4-12XD PRN dry 07/13/23 10/25/24 Rx Jelly topical) skin #368 grams lidocaine 4 % topical patch 1 patch topical DAILY PRN pain #5 04/25/24 10/25/24 Rx ea methocarbamol 750 mg tablet 750 mg PO HS #7 tabs 04/25/24 10/25/24 Rx azelastine 137 mcg (0.1 %) nasal 1 spray intranasal PRN 10/25/24 10/25/24 History spray Allergies Allergy/AdvReac Type Severity Reaction Status Date / Time zinc Allergy Unknown Nausea and Verified 10/25/24 06:39 Vomiting, Dizziness Vital Signs Vital Signs - 24 hr 10/25/24 00:47 10/25/24 01:54 10/25/24 03:32 Temperature Pulse Rate 60 50 L 58 L Respiratory Rate 17 12 16 Blood Pressure 134/69 138/63 147/73 H Pulse Oximetry 98 100 99 10/25/24 04:31 10/25/24 05:01 10/25/24 06:31 Temperature Pulse Rate 64 65 59 L Respiratory Rate 14 15 16 Blood Pressure 135/68 136/68 149/72 H Pulse Oximetry 99 98 100 10/25/24 07:09 10/25/24 09:09 10/25/24 11:23 Temperature 97.5 F L Pulse Rate 58 L 64 63 Respiratory Rate 12 19 14 Blood Pressure 156/71 H 141/58 H 167/81 H Pulse Oximetry 100 97 100 10/25/24 13:30 10/25/24 15:20 10/25/24 17:08 Temperature Pulse Rate 61 61 63 Respiratory Rate 15 17 14 Blood Pressure 158/84 H 168/72 H 158/72 H Pulse Oximetry 98 100 100 10/25/24 19:31 10/25/24 20:16 10/25/24 21:01 Temperature Pulse Rate 62 60 59 L Respiratory Rate 15 15 15 Blood Pressure 165/64 H 147/61 H 144/69 H Pulse Oximetry 100 100 99 10/25/24 23:53 Temperature 97.7 F Pulse Rate 61 Respiratory Rate 20 Blood Pressure 144/76 H Pulse Oximetry 99 Exam Narrative: General: Nontoxic-appearing female sitting up in bed in no distress. She is in good spirits. Weight: 83.2 kg. BMI: 30.5. HEENT: PERRL, EOMI. Sclera anicteric. NG tube in the right naris. Tacky mucous membranes. Neck: Supple. Respiratory: Lungs are clear to auscultation bilaterally. Cardiovascular: Regular rate and rhythm with S1-S2. Gastrointestinal: Abdomen is soft and nondistended with hypoactive bowel sounds. He is a bit tender to palpation in the periumbilical region. Patient reports having a large, loose stool not long prior to my arrival. Skin: Warm and dry. Extremities: No cyanosis, clubbing, or edema. Radial and pedal pulses intact. Neurological: Alert. Cranial nerves 2-12 are grossly intact. No gross focal deficits to casual conversation. Psychiatric: Pleasant and cooperative with normal mood and affect. H&P: Results Labs Labs: Laboratory Last Values WBC 11.9 K/mm3 (4.5-10.0) H 10/24/24 19:45 RBC 4.48 M/mm3 (4.2-5.4) 10/24/24 19:45 Hgb 13.8 g/dL (12.0-15.0) 10/24/24 19:45 Hct 41.6 % (37.0-47.0) 10/24/24 19:45 MCV 92.9 fl (80-100) 10/24/24 19:45 MCH 30.8 pg (26-34) 10/24/24 19:45 MCHC 33.2 g/dl (32-36) 10/24/24 19:45 RDW 12.5 % (11.5-14.5) 10/24/24 19:45 Plt Count 211 k/mm3 (150-375) 10/24/24 19:45 MPV 9.9 fl (7.4-10.4) 10/24/24 19:45 Immature Gran % (Auto) 0.2 % (0-0.5) 10/24/24 19:45 Neut % (Auto) 80.1 % (45.5-73.1) H 10/24/24 19:45 Lymph % (Auto) 13.6 % (18.3-44.2) L 10/24/24 19:45 [place] % (Auto) 4.7 % (2.6-8.5) 10/24/24 19:45 Eos % (Auto) 1.2 % (0-4.4) 10/24/24 19:45 Baso % (Auto) 0.2 % (0.2-1.2) 10/24/24 19:45 Lymph # (Auto) 1.62 K/mm3 (0.9-3.2) 10/24/24 19:45 [place] # (Auto) 0.6 K/mm3 (0.1-0.6) 10/24/24 19:45 Eos # (Auto) 0.1 K/mm3 (0-0.3) 10/24/24 19:45 Baso # (Auto) 0.0 K/mm3 (0.0-0.1) 10/24/24 19:45 Abs Immat Gran (auto) 0.02 K/mm3 (0.00-0.031) 10/24/24 19:45 Absolute Neuts (auto) 9.5 K/mm3 (1.3-6.7) H 10/24/24 19:45 Absolute Nucleated RBC 0.000 K/mm3 (0.0-0.012) 10/24/24 19:45 Nucleated RBC % 0.0 % (0.0-0.2) 10/24/24 19:45 Sodium 140 mmol/L (137-145) 10/24/24 19:45 Potassium 4.3 mmol/L (3.4-5.0) 10/24/24 19:45 Chloride 103 mmol/L (98-107) 10/24/24 19:45 Carbon Dioxide 28 mmol/L (22-30) 10/24/24 19:45 Anion Gap 9 mmol/L (4-12) 10/24/24 19:45 BUN 11 mg/dL (7-17) 10/24/24 19:45 Creatinine 0.83 mg/dL (0.7-1.0) 10/24/24 19:45 Estim Creat Clear Calc 60 ml/min 10/24/24 19:45 Estimated GFR > 60 (59-) 10/24/24 19:45 Glucose 131 mg/dL (65-110) H 10/24/24 19:45 POC Capillary Glucose 108 mg/dl (65-105) H 10/26/24 05:37 Calcium 9.9 mg/dL (8.4-10.2) 10/24/24 19:45 Total Bilirubin 0.4 mg/dL (0.2-1.3) 10/24/24 19:45 AST 31 U/L (14-36) 10/24/24 19:45 ALT 21 U/L (6-35) 10/24/24 19:45 Alkaline Phosphatase 61 U/L (38-126) 10/24/24 19:45 Total Protein 8.0 g/dL (6.3-8.2) 10/24/24 19:45 Albumin 4.6 g/dL (3.5-5.1) 10/24/24 19:45 Lipase 94 U/L (23-300) 10/24/24 19:45 Imaging Abdomen/Pelvis CT 10/24/24 22:00 IMPRESSION: 1. Dilated bowel suggestive of obstruction with the area of transition seen in the left mid abdomen most likely a site of stricture. 2. Small sliding hiatus hernia. Abdomen X-Ray 10/24/24 23:58 IMPRESSION: 1. Dilated bowel loops suggestive of obstruction. Follow-up advised. 2. Nasogastric tube with the tip in the fundus of the stomach. Assessment and Plan Assessment and plan (1) Bowel obstruction: Code(s): K56.609 - Unspecified intestinal obstruction, unspecified as to partial versus complete obstruction Status: Acute (2) Ulcerative colitis: Code(s): K51.90 - Ulcerative colitis, unspecified, without complications Status: Acute (3) Prediabetes: Code(s): R73.03 - Prediabetes Status: Acute (4) Hypertension: Code(s): I10 - Essential (primary) hypertension Status: Acute (5) Sarcoidosis: Code(s): D86.9 - Sarcoidosis, unspecified Status: Acute (6) Asthma: Code(s): J45.909 - Unspecified asthma, uncomplicated Status: Acute Plan The patient presented to the emergency department yesterday for evaluation of abdominal pain and vomiting as detailed in HPI. Labs, imaging, EKG, and all reports were personally reviewed. CT scan shows dilated bowel suggestive of obstruction with a transition area in the left mid abdomen, likely at the site of the stricture. She was accepted by GI at [place] as she may need balloon dilatation of the stricture however a bed is not yet available. She is being admitted here in the interim for supportive treatment pending transfer. The patient reports having a large, soft bowel movement not long prior to my arrival to the room and she does not think she needs the NG tube any longer. I convinced her to keep it in pending a repeat KUB. Analgesics and antiemetics are available as needed. Her blood pressures have been stable and will be monitored closely. Initiate sliding scale insulin, Accu-Cheks, and hypoglycemic protocol. Check hemoglobin A1c. Chronic conditions without acute issues include sarcoidosis and gastroesophageal reflux disease. Her medications will be reviewed and resumed appropriate. Findings and treatment plan were discussed with the patient. Questions were solicited and answered to satisfaction. The patient's medical management will be taken over by the hospitalist team in a.m. Quality VTE Prophylaxis VTE prophylaxis: mechanical ordered Hospitalist [facility] Advance Care Plan I have confirmed that the patient's Advanced Care Plan is present, code status is documented, or surrogate decision maker is listed in patient medical record.: Yes Medication Reconciliation I have utilized all available resources to obtain, update and review the patients current medications (includes all prescriptions, OTC, herbals, cannabis, and nutritional supplements).: Yes
[2024-10-26] MEDS: MORPHINE SULFATE (*CRX) 4 MG/ML INJ IV PUSH ×4 (01:22→13:19)
[2024-10-26] MEDS: SODIUM CHLORIDE 0.9% IV 1,000 ML 85 ML IV CONT (04:23)
[2024-10-26 05:39] LABS: Glucose Point of Care 108 mg/dl (65-105)
[2024-10-26 06:00] VITALS: BP 143/69; PULSE 59; RESP 20; TEMP 36.3; O2SAT 98
[2024-10-26 06:23] LABS: Hematocrit 35.7 % (37.0-47.0); Hemoglobin 11.9 g/dL (12.0-15.0); Mean Corpuscular HGB Conc 33.3 g/dl (32-36); Mean Corpuscular Hemoglobin 31.2 pg (26-34); Mean Corpuscular Volume 93.7 fl (80-100); Platelet Count Result 187 k/mm3 (150-375); Red Blood Count 3.81 M/mm3 (4.2-5.4); Red Cell Distribution Width 12.9 % (11.5-14.5); White Blood Count 5.7 K/mm3 (4.5-10.0)
[2024-10-26 06:34] LABS: Anion Gap 4 mmol/L (4-12); Blood Urea Nitrogen 5 mg/dL (7-17); Calcium 8.6 mg/dL (8.4-10.2); Carbon Dioxide 29 mmol/L (22-30); Chloride 108 mmol/L (98-107); Estimated CRCL calculation 72 ml/min; Estimated Glomerular Filt Rate > 60; Glucose 119 mg/dL (65-110); Potassium 3.8 mmol/L (3.4-5.0); Sodium 141 mmol/L (137-145)
--- NOTE | 2024-10-26 08:29 | P.PNIM_ITS ---
Progress Note: A&P Assessment and Plan (1) Bowel obstruction: Code(s): K56.609 - Unspecified intestinal obstruction, unspecified as to partial versus complete obstruction Status: Acute Assessment and Plan: 68 y/o female hx UC and J pouch, sacrcoidosis, who presented to the emergency department 10/25 for evaluation of abdominal pain and vomiting, found to have a bowel obstruction on CT. 10/24 CT scan shows dilated bowel suggestive of obstruction with a transition area in the left mid abdomen, likely at the site of the stricture. PLAN --KUB in AM --accepted by GI at [place] as she may need balloon dilatation of the stricture. Bed not yet available. May not need transfer --Patient reports having a large, soft bowel movements. Plan to remove NG tube if tolerating clear liquids and will continue clear liquids overnight. She is aware the NG tube would need to be replaced if she has vomiting, abdominal distention, or pain --Repeat KUB in AM --GI consult if clinically improved and KUB still abnormal (2) Ulcerative colitis: Code(s): K51.90 - Ulcerative colitis, unspecified, without complications Status: Acute (3) Prediabetes: Code(s): R73.03 - Prediabetes Status: Acute (4) Hypertension: Code(s): I10 - Essential (primary) hypertension Status: Acute (5) Sarcoidosis: Code(s): D86.9 - Sarcoidosis, unspecified Status: Acute (6) Asthma: Code(s): J45.909 - Unspecified asthma, uncomplicated Status: Acute Plan Continue sliding scale insulin, Accu-Cheks, and hypoglycemic protocol. Check hemoglobin A1c. Chronic conditions without acute issues include sarcoidosis and gastroesophageal reflux disease. Her medications were reviewed and resumed appropriate. Findings and treatment plan were discussed with the patient Time Spent With Patient Time: 57 minutes Subjective Date/time seen: 10/26/24 08:29 Interval history: Had a large BM. No longer having abdominal pain or nausea. She was hoping to go home today, but given KUB today that showed dilated small bowel compatible with obstruction, discussed with her that it was not safe to go home without advancing her diet. She reports a lot of pain with NG tube, and as to have her removed while she trials liquids. She preferred to have it replaced if needed than to sleep with the NG tube in overnight Review of Systems Review of Systems: 12 systems were reviewed and are negativ e except for as per HPI. Exam Narrative: General: Nontoxic-appearing female sitting up in bed in no distress. She is in good spirits. Weight: 83.2 kg. BMI: 30.5. HEENT: PERRL, EOMI. Sclera anicteric. NG tube in the right naris. Tacky mucous membranes. Neck: Supple. Respiratory: Lungs are clear to auscultation bilaterally. Cardiovascular: Regular rate and rhythm with S1-S2. Gastrointestinal: Abdomen is soft and nondistended with hypoactive bowel sounds. He is a bit tender to palpation in the periumbilical region. Patient reports having a large, loose stool not long prior to my arrival. Skin: Warm and dry. Extremities: No cyanosis, clubbing, or edema. Radial and pedal pulses intact. Neurological: Alert. Cranial nerves 2-12 are grossly intact. No gross focal deficits to casual conversation. Psychiatric: Pleasant and cooperative with normal mood and affect. Objective Data Vital Signs Vital Signs: Vital Signs - 24 hr 10/25/24 09:09 10/25/24 11:23 10/25/24 13:30 Temperature Pulse Rate 64 63 61 Respiratory Rate 19 14 15 Blood Pressure 141/58 H 167/81 H 158/84 H Pulse Oximetry 97 100 98 10/25/24 15:20 10/25/24 17:08 10/25/24 19:31 Temperature Pulse Rate 61 63 62 Respiratory Rate 17 14 15 Blood Pressure 168/72 H 158/72 H 165/64 H Pulse Oximetry 100 100 100 10/25/24 20:16 10/25/24 21:01 10/25/24 23:53 Temperature 97.7 F Pulse Rate 60 59 L 61 Respiratory Rate 15 15 20 Blood Pressure 147/61 H 144/69 H 144/76 H Pulse Oximetry 100 99 99 10/26/24 06:00 Temperature 97.4 F L Pulse Rate 59 L Respiratory Rate 20 Blood Pressure 143/69 H Pulse Oximetry 98 Intake/Output Intake/Output: Intake & Output 10/23/24 10/24/24 10/25/24 10/26/24 23:59 23:59 23:59 23:59 Intake Total 1000 2000 Output Total 300 900 Balance 1000 1700 -900 Meds/Results Medications: Active Medications Generic Name Dose Route Start Last Admin Trade Name Freq PRN Reason Stop Dose Admin Dextrose 12.5 gm 10/26/24 03:37 Dextrose 50% 25 Gm/50 Ml Syringe IV PUSH PRN PRN Hypoglycemia Protocol Famotidine 20 mg 10/26/24 09:00 Famotidine 20 Mg/2 Ml Vial IV PUSH Q12HR [facility] Fluticasone Propionate 1 puff 10/26/24 08:00 Fluticasone Prop 220 Mcg (*Sp) 12 Gm Inhaler INHALATION Q12HRT [facility] Glucagon 1 mg 10/26/24 03:37 Glucagon For Inj 1 Mg Vial IM PRN PRN Hypoglycemia Protocol Glucose 15 gm 10/26/24 03:37 Glucose Oral Gel 15 Gm Of Glucse In 37.5 Gm Tube PO PRN PRN Hypoglycemia Protocol Sodium Chloride 1,000 mls @ 85 mls/hr 10/26/24 03:37 10/26/24 04:23 Normal Saline Iv IV CONT 10/26/24 15:22 85 mls/hr .[id number] ONE Administration Dextrose 1,000 mls @ 100 mls/hr 10/26/24 03:37 Dextrose 5% 1,000 Ml IVPB PRN PRN Hypoglycemia Protocol Insulin Aspart 2 - 5 units 10/26/24 06:00 10/26/24 05:47 Insulin Aspart (*Bkc) 100 Units/Ml SUB-Q Not Given Q6HR [facility] Protocol Lorazepam 0.5 mg 10/26/24 03:38 Lorazepam Inj (*Crx) 2 Mg/Ml Vial IV PUSH Q8H PRN Anxiety Morphine Sulfate 4 mg 10/25/24 09:00 10/26/24 05:16 Morphine Sulfate (*Crx) 4 Mg/Ml Inj IV PUSH 4 mg Q4HR [facility] Administration Radiology Results: ITS Impressions Abdomen/Pelvis CT 10/24/24 22:00 IMPRESSION: 1. Dilated bowel suggestive of obstruction with the area of transition seen in the left mid abdomen most likely a site of stricture. 2. Small sliding hiatus hernia. Abdomen X-Ray 10/24/24 23:58 IMPRESSION: Dilated bowel loops suggestive of obstruction. Follow-up advised. Nasogastric tube with the tip in the fundus of the stomach. Labs Labs: Laboratory Results - last 24 hr 10/25/24 10/25/24 10/25/24 09:00 10:19 12:34 WBC RBC Hgb Hct MCV MCH MCHC RDW Plt Count MPV Sodium Potassium Chloride Carbon Dioxide Anion Gap BUN Creatinine Estim Creat Clear Calc Estimated GFR Glucose POC Capillary Glucose 140 H 126 H 119 H Calcium 10/25/24 10/25/24 10/25/24 15:23 17:07 19:08 WBC RBC Hgb Hct MCV MCH MCHC RDW Plt Count MPV Sodium Potassium Chloride Carbon Dioxide Anion Gap BUN Creatinine Estim Creat Clear Calc Estimated GFR Glucose POC Capillary Glucose 123 H 141 H 128 H Calcium 10/25/24 10/26/24 10/26/24 20:25 05:37 06:06 WBC 5.7 RBC 3.81 L Hgb 11.9 L Hct 35.7 L MCV 93.7 MCH 31.2 MCHC 33.3 RDW 12.9 Plt Count 187 MPV 10.0 Sodium 141 Potassium 3.8 Chloride 108 H Carbon Dioxide 29 Anion Gap 4 BUN 5 L D Creatinine 0.69 L Estim Creat Clear Calc 72 Estimated GFR > 60 Glucose 119 H POC Capillary Glucose 155 H 108 H Calcium 8.6 Quality VTE Prophylaxis VTE prophylaxis: mechanical ordered Hospitalist [facility] Advance Care Plan I have confirmed that the patient's Advanced Care Plan is present, code status is documented, or surrogate decision maker is listed in patient medical record.: Yes Medication Reconciliation I have utilized all available resources to obtain, update and review the patients current medications (includes all prescriptions, OTC, herbals, cannabis, and nutritional supplements).: Yes
[2024-10-26 08:47] VITALS: PULSE 70; RESP 20; O2SAT 100
[2024-10-26] MEDS: FLUTICASONE PROP 220 MCG (*SP) 12 GM INHALER 1 PUFF INHALATION ×2 (08:47→22:15)
[2024-10-26 09:17] LABS: Hemoglobin A1C 6.1 % (<5.7)
[2024-10-26] MEDS: FAMOTIDINE 20 MG/2 ML VIAL IV PUSH (09:20)
[2024-10-26 13:16] LABS: Glucose Point of Care 115 mg/dl (65-105)
[2024-10-26 14:00] VITALS: BP 164/72; PULSE 55; RESP 16; TEMP 36.4; O2SAT 100
[2024-10-26 18:26] LABS: Glucose Point of Care 128 mg/dl (65-105)
[2024-10-26] MEDS: HYDROXYCHLOROQUINE SULFATE 200 MG TABLET PO (18:36)
[2024-10-26 20:00] VITALS: BP 144/60; PULSE 61; RESP 18; TEMP 36.7; O2SAT 97
[2024-10-26] MEDS: QUEtiapine FUMARATE 100 MG TABLET PO (20:18)
[2024-10-26 22:15] VITALS: PULSE 75; RESP 20
[2024-10-26 23:16] LABS: Glucose Point of Care 97 mg/dl (65-105)
[2024-10-27] VITALS (7 sets, daily range): BP systolic 139–149; BP diastolic 67–80; PULSE 66–77; RESP 12–20; TEMP 35.8–36.9; O2SAT 97–100
[2024-10-27 05:37] LABS: Glucose Point of Care 138 mg/dl (65-105)
--- NOTE | 2024-10-27 07:50 | PM.IMPN ---
Progress Note: A&P Assessment and Plan (1) Bowel obstruction: Code(s): K56.609 - Unspecified intestinal obstruction, unspecified as to partial versus complete obstruction Status: Acute Assessment and Plan: 68 y/o female hx UC and J pouch, sacrcoidosis, who presented to the emergency department 10/25 for evaluation of abdominal pain and vomiting, found to have a bowel obstruction on CT. 10/24 CT scan shows dilated bowel suggestive of obstruction with a transition area in the left mid abdomen, likely at the site of the stricture. 10/26 KUB 1: Dilated small bowel, compatible with obstruction. 10/27 KUB Probable small bowel obstruction, without significant interval change. PLAN --accepted by GI at [facility] as she may need balloon dilatation of the stricture. Bed not yet available. May not need transfer --Patient reports having a large, soft bowel movements. Removed NG tube and after discussing with patient since clinically if tolerating clear liquids and will continue clear liquids overnight. She is aware the NG tube would need to be replaced if she has vomiting, abdominal distention, or pain --Daily KUB in AM --GI consulted since KUB still consistent with obstruction but tolerating liquids, appreciate recommendations: Recommend transfer to her GI doctor (bed available tomorrow) to assess site of surgery with scope given abnormal finding of recent CT scan --Continue clear liquids (2) Ulcerative colitis: Code(s): K51.90 - Ulcerative colitis, unspecified, without complications Status: Acute Assessment and Plan: s/p J pouch --on entyvio, holding inpatient --denies recent flares (3) Prediabetes: Code(s): R73.03 - Prediabetes Status: Acute (4) Hypertension: Code(s): I10 - Essential (primary) hypertension Status: Acute Assessment and Plan: Blood pressure above goal, 139/67-168/72 --Resume home Propranolol 40mg BID (5) Sarcoidosis: Code(s): D86.9 - Sarcoidosis, unspecified Status: Acute Assessment and Plan: (6) Asthma: Code(s): J45.909 - Unspecified asthma, uncomplicated Status: Acute Assessment and Plan: Not requiring a maintenance inhaler. Not in exacerbation. --Albuterol prn Plan Continue sliding scale insulin, Accu-Cheks, and hypoglycemic protocol. Check hemoglobin A1c. Chronic conditions without acute issues include sarcoidosis and gastroesophageal reflux disease. Her medications were reviewed and resumed appropriate. Findings and treatment plan were discussed with the patient Time Spent With Patient Time: 54 minutes Subjective Date/time seen: 10/27/24 10:15 Interval history: Feeling ok overnight. NG tube removed and tolerating fluids. No abdominal pain or nausea and had a BM yesterday and today. KUB still showing obstruction Consulted GI and recommend transfer for assessment to [facility] to assess site of surgery with scope given abnormal finding on CT Mag 1.8 2g IV today Potassium 3.2 40meq today Continuing clear liquids Review of Systems Review of Systems: 12 systems were reviewed and are negative except for as per HPI. Exam Narrative: General: Nontoxic-appearing female lying in bed in no distress. She is in good spirits. Weight: 83.2 kg. BMI: 30.5. HEENT: PERRL, EOMI. Sclera anicteric. Tacky mucous membranes. Neck: Supple. Respiratory: Lungs are clear to auscultation bilaterally. Cardiovascular: Regular rate and rhythm with S1-S2. Gastrointestinal: Abdomen is soft and nondistended with hypoactive bowel sounds. Nontender. Skin: Warm and dry. Extremities: No cyanosis, clubbing, or edema. Radial and pedal pulses intact. Neurological: Alert. Cranial nerves 2-12 are grossly intact. No gross focal deficits to casual conversation. Psychiatric: Pleasant and cooperative with normal mood and affect. Objective Data Vital Signs Vital Signs: Vital Signs - 24 hr 10/26/24 08:47 10/26/24 08:47 10/26/24 09:20 Temperature Pulse Rate 70 Respiratory Rate 20 Blood Pressure Pulse Oximetry 100 Oxygen Delivery Room Air Room Air Fraction of Inspired Oxygen 21 10/26/24 14:00 10/26/24 20:00 10/26/24 20:00 Temperature 97.6 F 98.1 F Pulse Rate 55 L 61 Respiratory Rate 16 18 Blood Pressure 164/72 H 144/60 H Pulse Oximetry 100 97 Oxygen Delivery Room Air Fraction of Inspired Oxygen 10/26/24 22:15 10/27/24 04:50 Temperature 96.4 F L Pulse Rate 75 66 Respiratory Rate 20 18 Blood Pressure 139/67 Pulse Oximetry 100 Oxygen Delivery Fraction of Inspired Oxygen Intake/Output Intake/Output: Intake & Output 10/24/24 10/25/24 10/26/24 10/27/24 23:59 23:59 23:59 23:59 Intake Total 1000 1999 1000 318 Output Total 300 1850 1050 Balance 1000 8346 -586 -980 Meds/Results Medications: Active Medications Generic Name Dose Route Start Last Admin Trade Name Freq PRN Reason Stop Dose Admin Alprazolam 1 mg 10/26/24 16:01 Alprazolam (*Crx) 0.5 Mg Tablet PO HS PRN sleep Dextrose 12.5 gm 10/26/24 03:37 Dextrose 50% 25 Gm/50 Ml Syringe IV PUSH PRN PRN Hypoglycemia Protocol Famotidine 40 mg 10/27/24 09:00 Famotidine 20 Mg Tablet PO DAILY LENNY Fluticasone Propionate 1 puff 10/26/24 08:00 10/26/24 22:15 Fluticasone Prop 220 Mcg (*Sp) 12 Gm Inhaler INHALATION 1 puff Q12HRT LENNY Administration Glucagon 1 mg 10/26/24 03:37 Glucagon For Inj 1 Mg Vial IM PRN PRN Hypoglycemia Protocol Glucose 15 gm 10/26/24 03:37 Glucose Oral Gel 15 Gm Of Glucse In 37.5 Gm Tube PO PRN PRN Hypoglycemia Protocol Hydroxychloroquine Sulfate 200 mg 10/26/24 16:05 10/26/24 18:36 Hydroxychloroquine Sulfate 200 Mg Tablet PO 200 mg DAILY LENNY Administration Dextrose 1,000 mls @ 100 mls/hr 10/26/24 03:37 Dextrose 5% 1,000 Ml IVPB PRN PRN Hypoglycemia Protocol Insulin Aspart 2 - 5 units 10/26/24 06:00 10/27/24 05:39 Insulin Aspart (*Bkc) 100 Units/Ml SUB-Q Not Given Q6HR [facility] Protocol Lorazepam 0.5 mg 10/26/24 03:38 Lorazepam Inj (*Crx) 2 Mg/Ml Vial IV PUSH Q8H PRN Anxiety Morphine Sulfate 2 mg 10/26/24 15:39 Morphine Sulfate (*Crx) 2 Mg/Ml Inj IV PUSH Q6H PRN Pain Rated 7-10 Ondansetron HCl 4 mg 10/26/24 15:39 Ondansetron Inj 4 Mg/2 Ml Vial IV PUSH Q4H PRN Nausea And Vomiting Quetiapine Fumarate 100 mg 10/26/24 21:00 10/26/24 20:18 Quetiapine Fumarate 100 Mg Tablet PO 100 mg HS LENNY Administration Radiology Results: ITS Impressions Abdomen/Pelvis CT 10/24/24 22:00 IMPRESSION: 1. Dilated bowel suggestive of obstruction with the area of transition seen in the left mid abdomen most likely a site of stricture. 2. Small sliding hiatus hernia. Abdomen X-Ray 10/26/24 08:54 Impression: 1: Dilated small bowel, compatible with obstruction. Labs Labs: Laboratory Results - last 24 hr 10/26/24 10/26/24 10/26/24 06:06 13:13 18:23 POC Capillary Glucose 115 H 128 H Hemoglobin A1c 6.1 H 10/26/24 10/27/24 23:12 05:32 POC Capillary Glucose 97 138 H Hemoglobin A1c Quality VTE Prophylaxis VTE prophylaxis: mechanical ordered and pharmacologic ordered Hospitalist [facility] Advance Care Plan I have confirmed that the patient's Advanced Care Plan is present, code status is documented, or surrogate decision maker is listed in patient medical record.: Yes Medication Reconciliation I have utilized all available resources to obtain, update and review the patients current medications (includes all prescriptions, OTC, herbals, cannabis, and nutritional supplements).: Yes
[2024-10-27 08:05] LABS: Basophils Percent Auto 0.2 % (0.2-1.2); Eosinophils Absolute Auto 0.1 K/mm3 (0-0.3); Eosinophils Percent Auto 1.2 % (0-4.4); Hematocrit 35.9 % (37.0-47.0); Immature Granulocyte Absolute 0.01 K/mm3 (0.00-0.031); Immature Granulocyte Percent A 0.2 % (0-0.5); Lymphocytes Absolute Auto 1.67 K/mm3 (0.9-3.2); Lymphocytes Percent Auto 29.8 % (18.3-44.2); Mean Corpuscular HGB Conc 33.4 g/dl (32-36); Mean Corpuscular Volume 92.8 fl (80-100); Mean Platelet Volume 9.8 fl (7.4-10.4); Monocytes Absolute Auto 0.7 K/mm3 (0.1-0.6); Monocytes Percent Auto 12.1 % (2.6-8.5); Neutrophils Absolute Auto 3.2 K/mm3 (1.3-6.7); Neutrophils Percent Auto 56.5 % (45.5-73.1); Platelet Count Result 175 k/mm3 (150-375); Red Blood Count 3.87 M/mm3 (4.2-5.4); Red Cell Distribution Width 12.6 % (11.5-14.5); White Blood Count 5.6 K/mm3 (4.5-10.0)
[2024-10-27 08:18] LABS: Alanine Aminotransferase 18 U/L (6-35); Albumin Level 3.8 g/dL (3.5-5.1); Alkaline Phosphatase 42 U/L (38-126); Anion Gap 9 mmol/L (4-12); Aspartate Amino Transferase 24 U/L (14-36); Bilirubin,Total 0.3 mg/dL (0.2-1.3); Blood Urea Nitrogen 5 mg/dL (7-17); Calcium 8.9 mg/dL (8.4-10.2); Carbon Dioxide 25 mmol/L (22-30); Chloride 107 mmol/L (98-107); Estimated CRCL calculation 68 ml/min; Estimated Glomerular Filt Rate > 60; Glucose 137 mg/dL (65-110); Magnesium 1.8 mg/dL (1.6-2.3); Phosphorus 2.8 mg/dL (2.5-4.5); Potassium 3.2 mmol/L (3.4-5.0); Sodium 141 mmol/L (137-145); Total Protein 6.7 g/dL (6.3-8.2)
[2024-10-27] MEDS: FLUTICASONE PROP 220 MCG (*SP) 12 GM INHALER 1 PUFF INHALATION ×2 (08:47→19:52)
[2024-10-27] MEDS: HYDROXYCHLOROQUINE SULFATE 200 MG TABLET PO (09:05)
[2024-10-27] MEDS: FAMOTIDINE 20 MG TABLET 40 MG PO (09:05)
[2024-10-27] MEDS: MAGNESIUM SULF 2 GM/WATER 50ML 2 GM/50 ML BAG IVPB (09:58)
[2024-10-27 11:43] LABS: Glucose Point of Care 124 mg/dl (65-105)
[2024-10-27] MEDS: POTASSIUM CHLORIDE INJ 40 MEQ in SODIUM CHLORIDE 0.9% IV 500 ML 130 MEQ IVPB (12:18)
--- NOTE | 2024-10-27 14:25 | WPDGICN ---
Assessment and Plan Assessment and plan (1) Bowel obstruction: Code(s): K56.609 - Unspecified intestinal obstruction, unspecified as to partial versus complete obstruction Status: Acute Assessment and Plan: clinically much better, NGT removed and tolerating liquid diet, also having BM I think will be a good idea to transfer to her GI doctor (bed available tomorrow) to assess site of surgery with scope given abnormal finding of recent CT scan (2) Ulcerative colitis: Code(s): K51.90 - Ulcerative colitis, unspecified, without complications Status: Acute Assessment and Plan: s/p J pouch on entyvio denies recent flares (3) Nausea and vomiting in adult: Code(s): R11.2 - Nausea with vomiting, unspecified Status: Acute (4) Abdominal pain: Code(s): R10.9 - Unspecified abdominal pain Status: Acute (5) History of colon surgery: Code(s): Z98.890 - Other specified postprocedural states Status: Acute GI Consult Note Consult date/time: 10/27/24 14:25 Reason for consult: UC s/p IPAA with abdominal pain HPI: Eve Hunter is a 68 year old female ulcerative colitis with history of J-pouch surgery about 15 years ago, currently she is seeing GI at [facility] and using entyvio with no active issues. She also has h/o section, hysterectomy, and sarcoidosis admitted few days ago with worsening abdominal cramping that got worse day of admission, also had severe episodes of emesis. She has been constipated and only had very small amounts of firm stool. ER were significant for WBC count of 11.9, hemoglobin 13.8, sodium 140, potassium 4.3, BUN 11, creatinine 0.83, glucose 131, lipase 94. Abdomen/pelvis CT showed dilated bowel suggestive of obstruction with area of transition seen in the left mid abdomen, most likely at the site of the stricture. NG tube was inserted and she received analgesics and antiemetics. Since she is now passing normal BM, NGT removed and tolerating liquid diet, doing better. She says that had lower scope few months ago in [facility], apparently found a lesion but told that was benign (no records). Review of Systems Constitutional: Constitutional: Denies headache(s) and Denies weakness Eyes: Eyes: Denies blurry vision ENT: Reports Normal hearing present, Denies headache(s) and Denies neck pain Cardiovascular: Cardiovascular: Denies chest pain and Denies dyspnea Respiratory: Respiratory: Denies dyspnea Gastrointestinal: Gastrointestinal: Reports no additional gastrointestinal complaints Genitourinary: Genitourinary: Denies dysuria Musculoskeletal: Musculoskeletal: Denies neck pain Integumentary/Breasts: Skin/Breast: Denies dry skin Neurologic: Reports Normal hearing present and Denies headache(s) Psychiatric: Psychiatric: Denies anxiety [facility] Past Medical History Medical History (Updated 10/27/24 @ 14:30 by Mamadou Cline MD) Abdominal pain Nausea and vomiting in adult Prediabetes Asthma Sarcoidosis Ulcerative colitis Hypertension Surgical History Surgical History (Updated 10/27/24 @ 14:30 by Mamadou Cline MD) History of tonsillectomy History of colon surgery History of partial hysterectomy History of foot surgery History of carpal tunnel release of both wrists History of partial knee replacement left History of eye surgery History of cataract extraction Family History Family History Mother Hypertension Cancer CHF (congestive heart failure) Father Alcoholism Asthma Cancer Diabetes mellitus Hypertension Depression Heart disease Cerebrovascular accident Sibling Alcoholism Hypertension Depression Cerebrovascular accident Grandparent Alcoholism Grandparent Alcoholism Heart disease Social History Social History (Updated 10/26/24 @ 06:10 by Yahaira Pantoja PA-C) Social History: Surrogate medical decision maker: Loren Lopez, meenu. Code status: Full code. Smoking status: Never smoker Second hand tobacco smoke exposure: No Alcohol intake: never Substance use: never Do You Feel Safe in your Home?: Yes Lack of Transportation: No Lack of Food: Never True Current Housing: I Have Housing Concerned About Future Housing: No Difficulty Paying Gas/Electric Bills: No Difficulty Paying for Meds: No Currently Unemployed: No Education: Decline to Answer Difficulty w/ Childcare or Family Care: No Living arrangements: alone Occupation/Education: retired Spiritual care concerns: No Meds Home Medications and Allergies Home Medications ?Medication ?Instructions ?Recorded ?Confirmed ?Type fluticasone propionate 220 2 puff inhalation DAILY 11/19/20 10/25/24 History mcg/actuation HFA aerosol inhaler (Flovent HFA) quetiapine 100 mg tablet 100 mg PO DAILY 11/19/20 10/25/24 History hydroxychloroquine 200 mg tablet 200 mg PO DAILY 02/18/21 10/25/24 History loperamide 2 mg capsule 2 mg PO Q4H PRN loose stool 02/18/21 10/25/24 History mupirocin 2 % topical ointment 1 applic topical BID #22 grams 05/27/22 10/25/24 Rx alprazolam 1 mg tablet 1 mg PO DAILY 03/08/23 10/25/24 History propranolol 40 mg tablet 40 mg PO Q12H 03/08/23 10/25/24 History sertraline 50 mg tablet 50 mg PO DAILY 03/08/23 10/25/24 History famotidine 40 mg tablet (Pepcid) 40 mg PO DAILY 10 days #10 tabs 04/23/23 10/25/24 Rx acetaminophen 500 mg capsule 1,000 mg (2 x 500 mg) PO Q6H PRN 07/13/23 10/25/24 Rx pain #30 caps white petrolatum (White Petroleum 1 applic topical 4-12XD PRN dry 07/13/23 10/25/24 Rx Jelly topical) skin #368 grams lidocaine 4 % topical patch 1 patch topical DAILY PRN pain #5 04/25/24 10/25/24 Rx ea methocarbamol 750 mg tablet 750 mg PO HS #7 tabs 04/25/24 10/25/24 Rx azelastine 137 mcg (0.1 %) nasal 1 spray intranasal PRN 10/25/24 10/25/24 History spray Allergies Allergy/AdvReac Type Severity Reaction Status Date / Time zinc Allergy Unknown Nausea and Verified 10/25/24 06:39 Vomiting, Dizziness Vital Signs Vital Signs - 24 hr 10/26/24 20:00 10/26/24 20:00 10/26/24 22:15 Temperature 98.1 F Pulse Rate 61 75 Respiratory Rate 18 20 Blood Pressure 144/60 H Pulse Oximetry 97 Oxygen Delivery Room Air 10/27/24 04:50 10/27/24 08:00 10/27/24 08:49 Temperature 96.4 F L Pulse Rate 66 Respiratory Rate 18 Blood Pressure 139/67 Pulse Oximetry 100 97 97 Oxygen Delivery Room Air Room Air 10/27/24 08:49 Temperature Pulse Rate 72 Respiratory Rate 20 Blood Pressure Pulse Oximetry Oxygen Delivery Exam Const: General: comfortable and no acute distress HENMT: Face/Nose/Sinus: Normal nares present Eyes: General: appearance normal, both eyes and all related structures Neck: Neck: supple Resp: Auscultation: clear to auscultation bilaterally Cardio: Rate: regular rate Rhythm: regular rhythm GI: Inspection: non-distended GI Palp: Yes Soft to palpation and No Tenderness to palpation present (GI) Auscultation: normal bowel sounds Skin: General skin exam: normal color Neuro: Speech: normal speech Motor exam (neuro): 5/5 motor strength present throughout Extrem: General: normal to inspection Psych: Mental Status: mental status grossly normal Results Labs 10/27/24 07:58 10/27/24 07:58 Labs: Short CBC 10/27/24 Range/Units 07:58 WBC 5.6 (4.5-10.0) K/mm3 Hgb 12.0 (12.0-15.0) g/dL Hct 35.9 L (37.0-47.0) % Plt Count 175 (150-375) k/mm3 BMP 10/27/24 07:58 Sodium 141 Potassium 3.2 L Chloride 107 Carbon Dioxide 25 BUN 5 L Creatinine 0.72 Glucose 137 H Calcium 8.9 Liver Function 10/27/24 Range/Units 07:58 Total Bilirubin 0.3 (0.2-1.3) mg/dL AST 24 (14-36) U/L ALT 18 (6-35) U/L Alkaline Phosphatase 42 (38-126) U/L Albumin 3.8 (3.5-5.1) g/dL
[2024-10-27] MEDS: PROPRANOLOL HCL 40 MG TABLET PO (20:41)
[2024-10-27] MEDS: QUEtiapine FUMARATE 100 MG TABLET PO (20:42)
[2024-10-28] VITALS (8 sets, daily range): BP systolic 112–131; BP diastolic 53–90; PULSE 53–80; RESP 16–18; TEMP 35.9–36.7; O2SAT 96–100
[2024-10-28] MEDS: FLUTICASONE PROP 220 MCG (*SP) 12 GM INHALER 1 PUFF INHALATION ×2 (08:10→20:27)
[2024-10-28] MEDS: HYDROXYCHLOROQUINE SULFATE 200 MG TABLET PO (09:20)
[2024-10-28] MEDS: PROPRANOLOL HCL 40 MG TABLET PO ×2 (09:20→20:34)
[2024-10-28] MEDS: FAMOTIDINE 20 MG TABLET 40 MG PO (09:20)
[2024-10-28] MEDS: SERTRALINE HCL 50 MG TABLET PO (09:21)
--- NOTE | 2024-10-28 14:51 | P.PNIM_ITS ---
Progress Note: A&P Assessment and Plan (1) Bowel obstruction: Code(s): K56.609 - Unspecified intestinal obstruction, unspecified as to partial versus complete obstruction Status: Acute Assessment and Plan: 68 y/o female hx UC and J pouch, sacrcoidosis, who presented to the emergency department 10/25 for evaluation of abdominal pain and vomiting, found to have a bowel obstruction on CT. 10/24 CT scan shows dilated bowel suggestive of obstruction with a transition area in the left mid abdomen, likely at the site of the stricture. 10/26 KUB 1: Dilated small bowel, compatible with obstruction. 10/27 KUB Probable small bowel obstruction, without significant interval change. PLAN --accepted by GI at [facility] as she may need balloon dilatation of the stricture. Bed not yet available. May not need transfer --Patient reports having a large, soft bowel movements. Removed NG tube and after discussing with patient since clinically if tolerating clear liquids and will continue clear liquids overnight. She is aware the NG tube would need to be replaced if she has vomiting, abdominal distention, or pain --Daily KUB in AM --GI consulted since KUB still consistent with obstruction but tolerating liquids, appreciate recommendations: awaiting transfer to her GI doctor (bed available tomorrow) to assess site of surgery with scope given abnormal finding of recent CT scan --Continue clear liquids (2) Ulcerative colitis: Code(s): K51.90 - Ulcerative colitis, unspecified, without complications Status: Acute Assessment and Plan: s/p J pouch --on entyvio, holding inpatient --denies recent flares (3) Prediabetes: Code(s): R73.03 - Prediabetes Status: Acute (4) Hypertension: Code(s): I10 - Essential (primary) hypertension Status: Acute Assessment and Plan: Blood pressure above goal, 139/67-168/72 --Resume home Propranolol 40mg BID (5) Sarcoidosis: Code(s): D86.9 - Sarcoidosis, unspecified Status: Acute Assessment and Plan: (6) Asthma: Code(s): J45.909 - Unspecified asthma, uncomplicated Status: Acute Assessment and Plan: Not requiring a maintenance inhaler. Not in exacerbation. --Albuterol prn Plan Continue sliding scale insulin, Accu-Cheks, and hypoglycemic protocol. Check hem oglobin A1c. Chronic conditions without acute issues include sarcoidosis and gastroesophageal reflux disease. Her medications were reviewed and resumed appropriate. Findings and treatment plan were discussed with the patient DVT prophylaxis on Sq Lovenox Subjective Date/time seen: 10/28/24 14:51 Interval history: Comfortable at bedside and awaiting transfer to [facility] Review of Systems Review of Systems: 12 systems were reviewed and are negativ e except for as per HPI. Exam Narrative: General: Nontoxic-appearing female lying in bed in no distress. She is in good spirits. Weight: 83.2 kg. BMI: 30.5. HEENT: PERRL, EOMI. Sclera anicteric. Tacky mucous membranes. Neck: Supple. Respiratory: Lungs are clear to auscultation bilaterally. Cardiovascular: Regular rate and rhythm with S1-S2. Gastrointestinal: Abdomen is soft and nondistended with hypoactive bowel sounds. Nontender. Skin: Warm and dry. Extremities: No cyanosis, clubbing, or edema. Radial and pedal pulses intact. Neurological: Alert. Cranial nerves 2-12 are grossly intact. No gross focal deficits to casual conversation. Psychiatric: Pleasant and cooperative with normal mood and affect. Objective Data Vital Signs Vital Signs: Vital Signs - 24 hr 10/27/24 19:52 10/27/24 20:00 10/27/24 20:06 Temperature Pulse Rate 77 Respiratory Rate 12 Blood Pressure Pulse Oximetry 99 Oxygen Delivery Room Air Room Air Fraction of Inspired Oxygen 10/27/24 20:31 10/28/24 05:39 10/28/24 08:10 Temperature 97.6 F 96.7 F L Pulse Rate 69 53 L Respiratory Rate 16 17 Blood Pressure 139/74 112/53 L Pulse Oximetry 100 100 98 Oxygen Delivery Room Air Fraction of Inspired Oxygen 21 10/28/24 08:10 10/28/24 09:20 Temperature Pulse Rate 80 64 Respiratory Rate 16 Blood Pressure Pulse Oximetry Oxygen Delivery Fraction of Inspired Oxygen Intake/Output Intake/Output: Intake & Output 10/25/24 10/26/24 10/27/24 10/28/24 23:59 23:59 23:59 23:59 Intake Total 1999 1000 1773 480 Output Total 300 1850 1050 Balance 1700 -850 723 480 Meds/Results Medications: Active Medications Generic Name Dose Route Start Last Admin Trade Name Freq PRN Reason Stop Dose Admin Albuterol 2 puff 10/27/24 19:44 Albuterol Sulfate (*Sp) Aerosol 1 Puff INHALATION Q6HRT PRN shortness of breath Alprazolam 1 mg 10/26/24 16:01 Alprazolam (*Crx) 0.5 Mg Tablet PO HS PRN sleep Enoxaparin Sodium 40 mg 10/28/24 09:00 10/28/24 09:18 Enoxaparin 40 Mg/0.4 Ml Syringe SUB-Q Not Given DAILY [facility] Famotidine 40 mg 10/27/24 09:00 10/28/24 09:20 Famotidine 20 Mg Tablet PO 40 mg DAILY LENNY Administration Fluticasone Propionate 1 puff 10/26/24 08:00 10/28/24 08:10 Fluticasone Prop 220 Mcg (*Sp) 12 Gm Inhaler INHALATION 1 puff Q12HRT LENNY Administration Hydroxychloroquine Sulfate 200 mg 10/26/24 16:05 10/28/24 09:20 Hydroxychloroquine Sulfate 200 Mg Tablet PO 200 mg DAILY [facility] Administration Lorazepam 0.5 mg 10/26/24 03:38 Lorazepam Inj (*Crx) 2 Mg/Ml Vial IV PUSH Q8H PRN Anxiety Morphine Sulfate 2 mg 10/26/24 15:39 Morphine Sulfate (*Crx) 2 Mg/Ml Inj IV PUSH Q6H PRN Pain Rated 7-10 Ondansetron HCl 4 mg 10/26/24 15:39 Ondansetron Inj 4 Mg/2 Ml Vial IV PUSH Q4H PRN Nausea And Vomiting Propranolol HCl 40 mg 10/27/24 21:00 10/28/24 09:20 Propranolol Hcl 40 Mg Tablet PO 40 mg Q12HR LENNY Administration Quetiapine Fumarate 100 mg 10/26/24 21:00 10/27/24 20:42 Quetiapine Fumarate 100 Mg Tablet PO 100 mg HS LENNY Administration Sertraline HCl 50 mg 10/28/24 09:00 10/28/24 09:21 Sertraline Hcl 50 Mg Tablet PO 50 mg DAILY LENNY Administration Radiology Results: ITS Impressions Abdomen/Pelvis CT 10/24/24 22:00 IMPRESSION: 1. Dilated bowel suggestive of obstruction with the area of transition seen in the left mid abdomen most likely a site of stricture. 2. Small sliding hiatus hernia. Abdomen X-Ray 10/27/24 09:40 Impression: Probable small bowel obstruction, without significant interval change. Quality VTE Prophylaxis VTE prophylaxis: mechanical ordered and pharmacologic ordered
--- NOTE | 2024-10-28 17:11 | P.PNGI_ITS ---
Progress Note: A&P Assessment and Plan (1) Bowel obstruction: Code(s): K56.609 - Unspecified intestinal obstruction, unspecified as to partial versus complete obstruction Status: Acute Assessment and Plan: clinically resolved will advance diet since she is doing much better probably can go home tomorrow with close follow- up with her GI doctor at [facility] since bed still unavailable (2) Nausea and vomiting in adult: Code(s): R11.2 - Nausea with vomiting, unspecified Status: Acute Assessment and Plan: resolved (3) Abdominal pain: Code(s): R10.9 - Unspecified abdominal pain Status: Acute Assessment and Plan: resolved (4) Ulcerative colitis: Code(s): K51.90 - Ulcerative colitis, unspecified, without complications Status: Acute (5) History of colon surgery: Code(s): Z98.890 - Other specified postprocedural states Status: Acute Assessment and Plan: UC with J pouch on entyvio Subjective Date/time seen: 10/28/24 17:11 Interval history: doing great, tolerating liquid diet, no more abdominal pain and having BM- back to her baseline Review of Systems Review of Systems: All systems reviewed & are unremarkable except as noted in HPI and below Exam Const: General: comfortable and no acute distress HENMT: Face/Nose/Sinus: Normal nares present Eyes: General: appearance normal, both eyes and all related structures Neck: Neck: supple Resp: Auscultation: clear to auscultation bilaterally Cardio: Rate: regular rate Rhythm: regular rhythm GI: Inspection: non-distended GI Palp: Yes Soft to palpation and No Tenderness to palpation present (GI) Auscultation: normal bowel sounds Skin: General skin exam: normal color Neuro: Speech: normal speech Motor exam (neuro): 5/5 motor strength present throughout Extrem: General: normal to inspection Psych: Mental Status: mental status grossly normal Objective Data Vital Signs Vital Signs: Vital Signs - 24 hr 10/27/24 19:52 10/27/24 20:00 10/27/24 20:06 Temperature Pulse Rate 77 Respiratory Rate 12 Blood Pressure Pulse Oximetry 99 Oxygen Delivery Room Air Room Air Fraction of Inspired Oxygen 10/27/24 20:31 10/28/24 05:39 10/28/24 08:10 Temperature 97.6 F 96.7 F L Pulse Rate 69 53 L Respiratory Rate 16 17 Blood Pressure 139/74 112/53 L Pulse Oximetry 100 100 98 Oxygen Delivery Room Air Fraction of Inspired Oxygen 21 10/28/24 08:10 10/28/24 09:20 10/28/24 14:00 Temperature 96.6 F L Pulse Rate 80 64 57 L Respiratory Rate 16 16 Blood Pressure 131/90 Pulse Oximetry 100 Oxygen Delivery Fraction of Inspired Oxygen Intake/Output Intake/Output: Intake & Output 10/25/24 10/26/24 10/27/24 10/28/24 23:59 23:59 23:59 23:59 Intake Total 1999 1000 1773 480 Output Total 300 1850 1050 Balance 1700 -850 723 480 Meds/Results Medications: Active Medications Generic Name Dose Route Start Last Admin Trade Name Freq PRN Reason Stop Dose Admin Albuterol 2 puff 10/27/24 19:44 Albuterol Sulfate (*Sp) Aerosol 1 Puff INHALATION Q6HRT PRN shortness of breath Alprazolam 1 mg 10/26/24 16:01 Alprazolam (*Crx) 0.5 Mg Tablet PO HS PRN sleep Enoxaparin Sodium 40 mg 10/28/24 09:00 10/28/24 09:18 Enoxaparin 40 Mg/0.4 Ml Syringe SUB-Q Not Given DAILY LENNY Famotidine 40 mg 10/27/24 09:00 10/28/24 09:20 Famotidine 20 Mg Tablet PO 40 mg DAILY LENNY Administration Fluticasone Propionate 1 puff 10/26/24 08:00 10/28/24 08:10 Fluticasone Prop 220 Mcg (*Sp) 12 Gm Inhaler INHALATION 1 puff Q12HRT LENNY Administration Hydroxychloroquine Sulfate 200 mg 10/26/24 16:05 10/28/24 09:20 Hydroxychloroquine Sulfate 200 Mg Tablet PO 200 mg DAILY LENNY Administration Lorazepam 0.5 mg 10/26/24 03:38 Lorazepam Inj (*Crx) 2 Mg/Ml Vial IV PUSH Q8H PRN Anxiety Morphine Sulfate 2 mg 10/26/24 15:39 Morphine Sulfate (*Crx) 2 Mg/Ml Inj IV PUSH Q6H PRN Pain Rated 7-10 Ondansetron HCl 4 mg 10/26/24 15:39 Ondansetron Inj 4 Mg/2 Ml Vial IV PUSH Q4H PRN Nausea And Vomiting Propranolol HCl 40 mg 10/27/24 21:00 10/28/24 09:20 Propranolol Hcl 40 Mg Tablet PO 40 mg Q12HR LENNY Administration Quetiapine Fumarate 100 mg 10/26/24 21:00 10/27/24 20:42 Quetiapine Fumarate 100 Mg Tablet PO 100 mg HS LENNY Administration Sertraline HCl 50 mg 10/28/24 09:00 10/28/24 09:21 Sertraline Hcl 50 Mg Tablet PO 50 mg DAILY LENNY Administration Radiology Results: ITS Impressions Abdomen/Pelvis CT 10/24/24 22:00 IMPRESSION: 1. Dilated bowel suggestive of obstruction with the area of transition seen in the left mid abdomen most likely a site of stricture. 2. Small sliding hiatus hernia. Abdomen X-Ray 10/27/24 09:40 Impression: Probable small bowel obstruction, without significant interval change.
[2024-10-28] MEDS: QUEtiapine FUMARATE 100 MG TABLET PO (20:33)
[2024-10-29 05:46] VITALS: BP 124/80; PULSE 64; RESP 16; TEMP 36.9; O2SAT 100
[2024-10-29 06:36] LABS: Basophils Percent Auto 0.3 % (0.2-1.2); Eosinophils Absolute Auto 0.3 K/mm3 (0-0.3); Eosinophils Percent Auto 2.7 % (0-4.4); Hematocrit 41.3 % (37.0-47.0); Hemoglobin 13.6 g/dL (12.0-15.0); Immature Granulocyte Absolute 0.03 K/mm3 (0.00-0.031); Immature Granulocyte Percent A 0.3 % (0-0.5); Lymphocytes Absolute Auto 3.55 K/mm3 (0.9-3.2); Lymphocytes Percent Auto 33.4 % (18.3-44.2); Mean Corpuscular HGB Conc 32.9 g/dl (32-36); Mean Corpuscular Hemoglobin 30.8 pg (26-34); Mean Corpuscular Volume 93.7 fl (80-100); Mean Platelet Volume 9.9 fl (7.4-10.4); Monocytes Absolute Auto 0.8 K/mm3 (0.1-0.6); Monocytes Percent Auto 7.8 % (2.6-8.5); Neutrophils Absolute Auto 5.9 K/mm3 (1.3-6.7); Neutrophils Percent Auto 55.5 % (45.5-73.1); Platelet Count Result 238 k/mm3 (150-375); Red Blood Count 4.41 M/mm3 (4.2-5.4); Red Cell Distribution Width 12.9 % (11.5-14.5); White Blood Count 10.6 K/mm3 (4.5-10.0)
[2024-10-29 07:02] LABS: Alanine Aminotransferase 17 U/L (6-35); Albumin Level 4.7 g/dL (3.5-5.1); Alkaline Phosphatase 45 U/L (38-126); Anion Gap 12 mmol/L (4-12); Aspartate Amino Transferase 25 U/L (14-36); Bilirubin,Total 0.6 mg/dL (0.2-1.3); Blood Urea Nitrogen 7 mg/dL (7-17); Calcium 9.3 mg/dL (8.4-10.2); Carbon Dioxide 23 mmol/L (22-30); Chloride 108 mmol/L (98-107); Estimated CRCL calculation 63 ml/min; Estimated Glomerular Filt Rate > 60; Glucose 131 mg/dL (65-110); Magnesium 1.9 mg/dL (1.6-2.3); Potassium 3.5 mmol/L (3.4-5.0); Sodium 143 mmol/L (137-145)
--- NOTE | 2024-10-29 07:22 | P.PNIM_ITS ---
Progress Note: A&P Assessment and Plan (1) Bowel obstruction: Code(s): K56.609 - Unspecified intestinal obstruction, unspecified as to partial versus complete obstruction Status: Acute Assessment and Plan: 68 y/o female hx UC and J pouch, sacrcoidosis, who presented to the emergency department 10/25 for evaluation of abdominal pain and vomiting, found to have a bowel obstruction on CT. 10/24 CT scan shows dilated bowel suggestive of obstruction with a transition area in the left mid abdomen, likely at the site of the stricture. 10/26 KUB 1: Dilated small bowel, compatible with obstruction. 10/27 KUB Probable small bowel obstruction, without significant interval change. PLAN --accepted by GI at [place] as she may need balloon dilatation of the stricture. Bed not yet available. May not need transfer --Patient reports having a large, soft bowel movements. Removed NG tube and after discussing with patient since clinically if tolerating clear liquids and will continue clear liquids overnight. She is aware the NG tube would need to be replaced if she has vomiting, abdominal distention, or pain --Daily KUB in AM --GI consulted since KUB still consistent with obstruction but tolerating liquids, appreciate recommendations: awaiting transfer to her GI doctor (bed available tomorrow) to assess site of surgery with scope given abnormal finding of recent CT scan --Continue clear liquids (2) Ulcerative colitis: Code(s): K51.90 - Ulcerative colitis, unspecified, without complications Status: Acute Assessment and Plan: s/p J pouch --on entyvio, holding inpatient --denies recent flares (3) Prediabetes: Code(s): R73.03 - Prediabetes Status: Acute (4) Hypertension: Code(s): I10 - Essential (primary) hypertension Status: Acute Assessment and Plan: Blood pressure above goal, 139/67-168/72 --Resume home Propranolol 40mg BID (5) Sarcoidosis: Code(s): D86.9 - Sarcoidosis, unspecified Status: Acute Assessment and Plan: (6) Asthma: Code(s): J45.909 - Unspecified asthma, uncomplicated Status: Acute Assessment and Plan: Not requiring a maintenance inhaler. Not in exacerbation. --Albuterol prn Plan Continue sliding scale insulin, Accu-Cheks, and hypoglycemic protocol. Check hem oglobin A1c. Chronic conditions without acute issues include sarcoidosis and gastroesophageal reflux disease. Her medications were reviewed and resumed appropriate. Findings and treatment plan were discussed with the patient DVT prophylaxis on Sq Lovenox Subjective Date/time seen: 10/29/24 07:22 Interval history: This am patient reports she is doing great, tolerating liquid diet with no further abdominal pain. Patient has now had several soft BM. Patient feels as if she is back to her baseline. repeat KUB this am. Still pending transfer to [place] to Review of Systems Review of Systems: 12 systems were reviewed and are negativ e except for as per HPI. Exam Narrative: General: Nontoxic-appearing female lying in bed in no distress. She is in good spirits. Weight: 83.2 kg. BMI: 30.5. HEENT: PERRL, EOMI. Sclera anicteric. Tacky mucous membranes. Neck: Supple. Respiratory: Lungs are clear to auscultation bilaterally. Cardiovascular: Regular rate and rhythm with S1-S2. Gastrointestinal: Abdomen is soft and nondistended with hypoactive bowel sounds. Nontender. Skin: Warm and dry. Extremities: No cyanosis, clubbing, or edema. Radial and pedal pulses intact. Neurological: Alert. Cranial nerves 2-12 are grossly intact. No gross focal deficits to casual conversation. Psychiatric: Pleasant and cooperative with normal mood and affect. Objective Data Vital Signs Vital Signs: Vital Signs - 24 hr 10/28/24 08:10 10/28/24 08:10 10/28/24 09:20 Temperature Pulse Rate 80 64 Respiratory Rate 16 Blood Pressure Pulse Oximetry 98 Oxygen Delivery Room Air Fraction of Inspired Oxygen 10/28/24 14:00 10/28/24 20:00 10/28/24 20:27 Temperature 96.6 F L Pulse Rate 57 L 76 Respiratory Rate 16 18 Blood Pressure 131/90 Pulse Oximetry 100 Oxygen Delivery Room Air Fraction of Inspired Oxygen 10/28/24 20:34 10/28/24 21:04 10/28/24 23:53 Temperature 98.1 F Pulse Rate 63 60 Respiratory Rate 16 Blood Pressure 129/85 Pulse Oximetry 100 96 Oxygen Delivery Room Air Fraction of Inspired Oxygen 10/29/24 05:46 Temperature 98.4 F Pulse Rate 64 Respiratory Rate 16 Blood Pressure 124/80 Pulse Oximetry 100 Oxygen Delivery Fraction of Inspired Oxygen Intake/Output Intake/Output: Intake & Output 10/26/24 10/27/24 10/28/24 10/29/24 23:59 23:59 23:59 23:59 Intake Total 1000 1773 700 300 Output Total 1850 1050 600 Balance -850 723 700 -300 Meds/Results Medications: Active Medications Generic Name Dose Route Start Last Admin Trade Name Freq PRN Reason Stop Dose Admin Albuterol 2 puff 10/27/24 19:44 Albuterol Sulfate (*Sp) Aerosol 1 Puff INHALATION Q6HRT PRN shortness of breath Alprazolam 1 mg 10/26/24 16:01 Alprazolam (*Crx) 0.5 Mg Tablet PO HS PRN sleep Enoxaparin Sodium 40 mg 10/28/24 09:00 10/28/24 09:18 Enoxaparin 40 Mg/0.4 Ml Syringe SUB-Q Not Given DAILY LENNY Famotidine 40 mg 10/27/24 09:00 10/28/24 09:20 Famotidine 20 Mg Tablet PO 40 mg DAILY LENNY Administration Fluticasone Propionate 1 puff 10/26/24 08:00 10/28/24 20:27 Fluticasone Prop 220 Mcg (*Sp) 12 Gm Inhaler INHALATION 1 puff Q12HRT LENNY Administration Hydroxychloroquine Sulfate 200 mg 10/26/24 16:05 10/28/24 09:20 Hydroxychloroquine Sulfate 200 Mg Tablet PO 200 mg DAILY LENNY Administration Lorazepam 0.5 mg 10/26/24 03:38 Lorazepam Inj (*Crx) 2 Mg/Ml Vial IV PUSH Q8H PRN Anxiety Morphine Sulfate 2 mg 10/26/24 15:39 Morphine Sulfate (*Crx) 2 Mg/Ml Inj IV PUSH Q6H PRN Pain Rated 7-10 Ondansetron HCl 4 mg 10/26/24 15:39 Ondansetron Inj 4 Mg/2 Ml Vial IV PUSH Q4H PRN Nausea And Vomiting Propranolol HCl 40 mg 10/27/24 21:00 10/28/24 20:34 Propranolol Hcl 40 Mg Tablet PO 40 mg Q12HR LENNY Administration Quetiapine Fumarate 100 mg 10/26/24 21:00 10/28/24 20:33 Quetiapine Fumarate 100 Mg Tablet PO 100 mg HS LENNY Administration Sertraline HCl 50 mg 10/28/24 09:00 10/28/24 09:21 Sertraline Hcl 50 Mg Tablet PO 50 mg DAILY LENNY Administration Radiology Results: ITS Impressions Abdomen/Pelvis CT 10/24/24 22:00 IMPRESSION: 1. Dilated bowel suggestive of obstruction with the area of transition seen in the left mid abdomen most likely a site of stricture. 2. Small sliding hiatus hernia. Abdomen X-Ray 10/27/24 09:40 Impression: Probable small bowel obstruction, without significant interval change. Labs Labs: Laboratory Results - last 24 hr 10/29/24 05:50 WBC 10.6 H RBC 4.41 Hgb 13.6 Hct 41.3 MCV 93.7 MCH 30.8 MCHC 32.9 RDW 12.9 Plt Count 238 MPV 9.9 Immature Gran % (Auto) 0.3 Neut % (Auto) 55.5 Lymph % (Auto) 33.4 [place] % (Auto) 7.8 Eos % (Auto) 2.7 Baso % (Auto) 0.3 Lymph # (Auto) 3.55 H [place] # (Auto) 0.8 H Eos # (Auto) 0.3 Baso # (Auto) 0.0 Abs Immat Gran (auto) 0.03 Absolute Neuts (auto) 5.9 Absolute Nucleated RBC 0.000 Nucleated RBC % 0.0 Sodium 143 Potassium 3.5 Chloride 108 H Carbon Dioxide 23 Anion Gap 12 BUN 7 Creatinine 0.78 Estim Creat Clear Calc 63 Estimated GFR > 60 Glucose 131 H Calcium 9.3 Magnesium 1.9 Total Bilirubin 0.6 AST 25 ALT 17 Alkaline Phosphatase 45 Total Protein 8.0 Albumin 4.7 Quality VTE Prophylaxis VTE prophylaxis: mechanical ordered and pharmacologic ordered
[2024-10-29 09:45] VITALS: PULSE 64
[2024-10-29] MEDS: SERTRALINE HCL 50 MG TABLET PO (09:45)
[2024-10-29] MEDS: FAMOTIDINE 20 MG TABLET 40 MG PO (09:45)
[2024-10-29] MEDS: HYDROXYCHLOROQUINE SULFATE 200 MG TABLET PO (09:45)
[2024-10-29] MEDS: PROPRANOLOL HCL 40 MG TABLET PO (09:45)
--- NOTE | 2024-10-29 10:24 | P.DS_ITS ---
DS: Admitting Diagnosis Discharge Date 10/29/2024 Admitting Diagnosis Small bowel obstruction - dilated bowel suggestive of obstruction with area of transition seen in the left mid abdomen, most likely at the site of the stricture abdominal pain DS: Discharge Diagnosis Discharge Diagnosis (1) Bowel obstruction: Code(s): K56.609 - Unspecified intestinal obstruction, unspecified as to partial versus complete obstruction Status: Acute Assessment and Plan: 68 y/o female hx UC and J pouch, sacrcoidosis, who presented to the emergency department 10/25 for evaluation of abdominal pain and vomiting, found to have a bowel obstruction on CT. 10/24 CT scan shows dilated bowel suggestive of obstruction with a transition area in the left mid abdomen, likely at the site of the stricture. 10/26 KUB 1: Dilated small bowel, compatible with obstruction. 10/27 KUB Probable small bowel obstruction, without significant interval change. 10/29 KUB - No abnormality noted. --accepted by GI at [facility] as she may need balloon dilatation of the stricture. Bed not yet available. May not need transfer --Patient reports having a large, soft bowel movements. Removed NG tube and after discussing with patient since clinically if tolerating clear liquids and will continue clear liquids overnight. --She is aware the NG tube would need to be replaced if she has vomiting, abdominal distention, or pain.did not have reoccurrence --Daily KUB in AM - resolved obstruction - no abnormality noted. --GI consulted since KUB still consistent with obstruction but tolerating liquids, appreciate recommendations: awaiting transfer to her GI doctor to assess site of surgery with scope given abnormal finding of recent CT scan however no bed was available and patient improved. will follow up outpatient. --Continued clear liquids -- advanced to soft with no abdominal pain (2) Ulcerative colitis: Code(s): K51.90 - Ulcerative colitis, unspecified, without complications Status: Acute Assessment and Plan: s/p J pouch --on entyvio, holding inpatient --denies recent flares (3) Prediabetes: Code(s): R73.03 - Prediabetes Status: Acute (4) Hypertension: Code(s): I10 - Essential (primary) hypertension Status: Acute Assessment and Plan: Blood pressure above goal, 139/67-168/72 --Resume home Propranolol 40mg BID (5) Sarcoidosis: Code(s): D86.9 - Sarcoidosis, unspecified Status: Acute Assessment and Plan: (6) Asthma: Code(s): J45.909 - Unspecified asthma, uncomplicated Status: Acute Assessment and Plan: Not requiring a maintenance inhaler. Not in exacerbation. --Albuterol prn Plan patient discharged home today with outpatient follow up as instructed. Diet will be soft bland diet until seen and insttucted otherwise by GI specialist. DVT prophylaxis on Sq Lovenox DS: Summary Hospital Course Reason for hospitalization: small bowel obstruction abdominal pain Hospital Course: This is a 68-year-old female with ulcerative colitis with history of J-pouch surgery, section, hysterectomy, and sarcoidosis who presented to the emergency department yesterday evening via EMS from home with complaints of abdominal pain. She gives a several day history of abdominal cramping which intensified early yesterday morning. Shortly thereafter she began to vomit and she estimates vomiting 10 times before coming to the ED. She has been constipated and reports passing only very small amounts of firm stool for several days. She denies sick contacts, fever, chest pain, shortness of breath, hematemesis, melena, hematochezia, and dysuria. In the ED patient viital signs on arrival include a temperature of 98.8?, blood pressure 170/99, pulse 58, respiratory 18, SpO2 100% on room air. Labs were significant for WBC count of 11.9, hemoglobin 13.8, sodium 140, potassium 4.3, BUN 11, creatinine 0.83, glucose 131, lipase 94. Abdomen/pelvis CT showed dilated bowel suggestive of obstruction with area of transition seen in the left mid abdomen, most likely at the site of the stricture. NG tube was inserted and she received analgesics and antiemetics. Transfer was initiated to [facility] and she has been accepted by Dr. Aguero with GI. It has now been 24 hours and [facility] does not anticipate at time of acceptance, however reports bed to open up in the next couple of days and she is being admitted in this setting pending transfer. 10/24 CT scan shows dilated bowel suggestive of obstruction with a transition area in the left mid abdomen, likely at the site of the stricture. serial KUB performed 10/26 KUB 1: Dilated small bowel, compatible with obstruction, 10/27 KUB Probable small bowel obstruction, without significant interval change, 10/29 KUB - No abnormality noted. Patient was accepted by GI at [facility] as she may need balloon dilatation of the stricture. Bed not yet available. Patient reports having a large, soft bowel movements. Removed NG tube and after discussing with patient since clinically if tolerating clear liquids and will continue clear liquids overnight. Patient was able to tolerate full iquid diet. no pain or N/V. KUB in AM today noted a resolved obstruction - no abnormality noted. GI consulted since KUB still consistent with obstruction but tolerating liquids. Awaited transfer to her GI doctor to assess site of surgery with scope given abnormal finding of recent CT scan however no bed was available and patient improved. will follow up outpatient. patient was agreeable, discharged home with outpatient follow up. Status at Discharge Functional status at discharge: independent ambulation Overall status at discharge: patient is back to baseline Time Spent with Patient Time attestation: Total time spent providing and/or coordinating discharge services: Time spent: Greater than 30 minutes Exam Narrative: General: Nontoxic-appearing female lying in bed in no distress. She is in good spirits. Weight: 83.2 kg. BMI: 30.5. HEENT: PERRL, EOMI. Sclera anicteric. Tacky mucous membranes. Neck: Supple. Respiratory: Lungs are clear to auscultation bilaterally. Cardiovascular: Regular rate and rhythm with S1-S2. Gastrointestinal: Abdomen is soft and nondistended with hypoactive bowel sounds. Nontender. Skin: Warm and dry. Extremities: No cyanosis, clubbing, or edema. Radial and pedal pulses intact. Neurological: Alert. Cranial nerves 2-12 are grossly intact. No gross focal deficits to casual conversation. Psychiatric: Pleasant and cooperative with normal mood and affect. DS: Data Data Completed and Pending Labs on day of discharge: Labs from last 24 hours 10/29/24 05:50 WBC 10.6 H RBC 4.41 Hgb 13.6 Hct 41.3 MCV 93.7 MCH 30.8 MCHC 32.9 RDW 12.9 Plt Count 238 MPV 9.9 Immature Gran % (Auto) 0.3 Neut % (Auto) 55.5 Lymph % (Auto) 33.4 [place] % (Auto) 7.8 Eos % (Auto) 2.7 Baso % (Auto) 0.3 Lymph # (Auto) 3.55 H [place] # (Auto) 0.8 H Eos # (Auto) 0.3 Baso # (Auto) 0.0 Abs Immat Gran (auto) 0.03 Absolute Neuts (auto) 5.9 Absolute Nucleated RBC 0.000 Nucleated RBC % 0.0 Sodium 143 Potassium 3.5 Chloride 108 H Carbon Dioxide 23 Anion Gap 12 BUN 7 Creatinine 0.78 Estim Creat Clear Calc 63 Estimated GFR > 60 Glucose 131 H Calcium 9.3 Magnesium 1.9 Total Bilirubin 0.6 AST 25 ALT 17 Alkaline Phosphatase 45 Total Protein 8.0 Albumin 4.7 Imaging Radiologist's impression: Abdomen/Pelvis CT 10/24/24 22:00 IMPRESSION: 1. Dilated bowel suggestive of obstruction with the area of transition seen in the left mid abdomen most likely a site of stricture. 2. Small sliding hiatus hernia. Abdomen X-Ray 10/27/24 09:40 Impression: Probable small bowel obstruction, without significant interval change. EXAMINATION: XR abdomen/kub 1V DATE: 10/29/2024 08:06 INDICATION: Small bowel obstruction TECHNIQUE: A supine view of the abdomen on 2 radiographs was obtained. COMPARISON: KUB dated 10/27/[address] dated 10/24/2024 FINDINGS: Persistent mildly dilated loops of small bowel in the left upper quadrant which appears to extend to identical transition point in the central abdomen as on the previous CT scan. There are a few loops of nondilated gas containing loops of small bowel in the left lower quadrant and right abdomen. Rectosigmoid anastomotic suture line in the deep pelvis. Lung bases are clear. Heart size is normal. IMPRESSION: 1. Persistent small bowel obstruction with likely unchanged transition point in the central abdomen. Discharge Plan Discharge Attending physician on discharge: Sridhar Tidwell Consulting providers: Mamadou Cline Discharging Clinician: Aminata Duffy Anticipated Discharge Date/Time: 10/29/24 10:22 Patient Disposition: Home Activity: may shower, no straining and as tolerated Diet: bland and other - see discharge instructions Discharge Instructions: soft diet, Call your GI specialist today, make appointment for hospital follow up and outpatient scope. Continue all current medications. Return immediately to the ER with any worrisome sign or symptom. Patient Instructions: Antibiotic Form Patient Language: Nicaraguan Follow-up/Referrals: Nitin Matthews MD [Primary Care Provider] - Discharge Medications: Continued loperamide 2 mg capsule 2 mg PO Q4H PRN (Reason: loose stool) Rx Instructions: administer after each loose stool until symptoms controlled; do not exceed 8 mg per 24 hrs hydroxychloroquine 200 mg tablet 200 mg PO DAILY mupirocin 2 % ointment 1 applic topical BID Qty: 22 12RF alprazolam 1 mg tablet 1 mg PO DAILY propranolol 40 mg tablet 40 mg PO Q12H sertraline 50 mg tablet 50 mg PO DAILY quetiapine 100 mg tablet 100 mg PO DAILY fluticasone propionate [Flovent HFA] 220 mcg/actuation HFA aerosol inhaler 2 puff INHALATION DAILY famotidine [Pepcid] 40 mg tablet 40 mg PO DAILY 10 Days Qty: 10 0RF acetaminophen 500 mg capsule 1,000 mg PO Q6H PRN (Reason: pain) Qty: 30 0RF white petrolatum [White Petroleum Jelly] Gel 1 applic topical 4-12XD PRN (Reason: dry skin) Qty: 368 0RF lidocaine 4 % adhesive patch,medicated 1 patch topical DAILY PRN (Reason: pain) Qty: 5 0RF methocarbamol 750 mg tablet 750 mg PO HS Qty: 7 0RF azelastine 137 mcg (0.1 %) aerosol,spray 1 spray intranasal PRN Rx Instructions: administer into each nostril Date of admission: 10/25/24 21:52 Primary Care Provider: Nitin Matthews Admitting Provider: Edmundo Angelo Attending physician on admission: Stephenie Harris Condition: Stable Quality VTE Prophylaxis VTE prophylaxis: mechanical ordered and pharmacologic ordered Hospitalist MIPS Heart Failure (Exclusion) Patient has history of Heart Transplant or Left Ventricular Assistive Device?: No IF YES, STOP HERE Heart Failure (Qualifier) Patient has current or prior documentation of LVEF less than or equal to 40%, or mod/servere depressed LVSF?: No IF NO, STOP HERE If Yes, Heart Failure (Qualifier) Patient was prescribed or already taking an Angiotensin-Converting Enzyme (ECHO) Inhibitor, or Antiotensin Receptor Gregory (ARB): Yes
== END 2024-10-29 10:40 | disposition home or self-care (01) | DRG 389 ==
LOC: ANHED 10-25 09:54 → ANH3MEDSUR 10-25 22:24
PROVIDERS: Internal Medicine; Nurse Practitioner Acute Care; Physician Assistant; Admitting Provider General Practice; Emergency Provider Emergency Medicine; PCP Emergency Medicine; Visit Provider Nurse Practitioner Family
DX: K56.609 Unspecified intestinal obstruction, unspecified as to partial versus complete obstruction (principal); K51.90 Ulcerative colitis, unspecified, without complications; D86.9 Sarcoidosis, unspecified; I10 Essential (primary) hypertension; J45.909 Unspecified asthma, uncomplicated; R73.03 Prediabetes
CPT/HCPCS: 36415; 74018; 74177; 80048; 80053; 82948; 83036; 83690; 83735; 84100; 85025; 85027; 94640; 96361; 96374; 96375; 96376; 99239; 99285; A9270; J1171; J2270; J2405; J3475; J3480; J7030; J7040; J7042; Q9967